=== PATIENT | male | born 1945 | race Caucasian/White ===

== ENCOUNTER 2018-07-30 10:45 | Emergency (ER) | payer MEDICARE, OTHER, MEDICAID ==
[2018-07-30] MEDS ORDERED: Proparacaine 0.5% Opth 15 ML BOT ONE (11:01)
[2018-07-30] MEDS ORDERED: Fluorescein Opthalmic Strip ONE (11:01)
== END 2018-07-30 11:26 | disposition home or self-care (01) ==
LOC: SCSER 10:45
DX: H00.014 Hordeolum externum left upper eyelid (principal); J06.9 Acute upper respiratory infection, unspecified; E11.9 Type 2 diabetes mellitus without complications; I50.9 Heart failure, unspecified; J44.9 Chronic obstructive pulmonary disease, unspecified; F32.9 Major depressive disorder, single episode, unspecified
CPT/HCPCS: 99283

== ENCOUNTER 2018-10-19 12:33 | Emergency (ER) | payer MEDICARE, OTHER, MEDICAID ==
--- NOTE | 2018-10-19 14:19 | RAD ---
TWO VIEWS CHEST: HISTORY: Cough. FINDINGS: PA and lateral views of the chest are obtained on 10/19/2018. Comparison is made to previous exam fro m 04/18/2014. Two views of the chest demonstrate sternotomy wires seen. Calcification of the aorta is seen. The l ungs are well aerated. No evidence of active intrathoracic disease is seen. No evidence of effusion s, pneumonia, or pneumothorax is seen. Prosthetic cardiac valve is in place. IMPRESSION: Unremarkable 2 views chest. POS: [facility]
== END 2018-10-19 14:13 | disposition home or self-care (01) ==
LOC: SCSER 12:33
DX: J06.9 Acute upper respiratory infection, unspecified (principal); I50.9 Heart failure, unspecified; J44.9 Chronic obstructive pulmonary disease, unspecified; F32.9 Major depressive disorder, single episode, unspecified; E11.40 Type 2 diabetes mellitus with diabetic neuropathy, unspecified
CPT/HCPCS: 71046; 87804

== ENCOUNTER 2020-07-26 09:56 | Outpatient (CLI) | payer MEDICARE, OTHER ==
--- NOTE | 2020-07-26 11:30 | MRI ---
MRI Lumbar Spine WO Con History: Lumbar spondylosis Comparison: None. Findings: Aortic contour is nonaneurysmal. No retroperitoneal periaortic adenopathy. Mild bilateral posterior paraspinal muscle atrophy. Laminectomy change at L3 and L4. Conus medullaris terminates near the superior L1 endplate. Levels are as follows: L1/L2: Mild posterior disc degenerative height loss and minimal disc desiccation. No neural foraminal or spinal canal narrowing. L2/L3: 2 mm retrolisthesis. Mild posterior degenerative disc space height loss. Small circumferential disc osteophyte complex. Minimal central and right paracentral annular fissure. Mild ligament flavum hypertrophy. Spinal canal measures 6 to 7 mm. Moderate hypertrophic facet arthrosis with facet joint effusions. Mild bilateral neural foraminal narrowing. L3/L4: Moderate posterior degenerative disc space height loss. 1-2 mm retrolisthesis. High-grade face t arthrosis. Moderate disc osteophyte complex causes moderate bilateral neural foraminal narrowing. The spinal canal measures approximately 13 mm. L4/L5: Mild posterior degenerative disc space height loss. Moderate circumferential disc osteophyte c omplex. Moderate ligamentum flavum hypertrophy. Severe facet arthropathy. Large disc osteophyte complex. Moderate to severe left and moderate right neural foraminal narrowing with abutment of the l eft exiting and bilateral traversing nerve roots. Spinal canal measures approximately 3-4 mm. L5/S1: Mild disc desiccation and height loss. Small circumferential disc osteophyte complex. Severe h ypertrophic facet arthrosis. Moderate disc osteophyte complex. Moderate bilateral neural foraminal narrowing. Impression: [id number] spondylosis as described with multilevel neural foraminal and spinal canal narrowing. High-grade spinal canal narrowing at L4/L5 measuring 3-4 mm with nerve root crowding.
== END 2020-07-26 09:57 | disposition home or self-care (01) ==
LOC: BICMRI 09:56
PROVIDERS: ATTEND Anesthesiology Pain Medicine
DX: M48.062 Spinal stenosis, lumbar region with neurogenic claudication (principal); M47.816 Spondylosis without myelopathy or radiculopathy, lumbar region
CPT/HCPCS: 72148

== ENCOUNTER 2020-09-16 06:41 | Inpatient (IN) | payer MEDICARE, MEDICAID, OTHER ==
[2020-09-13 09:33] VITALS: BMI 31.0
[2020-09-16] MEDS ORDERED: Sodium Chloride 0.9% 0 ML ONE (09:02)
[2020-09-16] MEDS ORDERED: Thrombin 5000 UNITS/5 ML VIAL ONE (09:02)
[2020-09-16] MEDS ORDERED: Fentanyl 100 MCG/2 ML VIAL ONE ×3 (09:34→14:02)
[2020-09-16] MEDS ORDERED: Levofloxacin 500 mg/D5W 100 ml Premix Bag ONE (09:59)
[2020-09-16] MEDS ORDERED: Clindamycin/D5W 900 mg/50 ml Premix Bag ONE (09:59)
[2020-09-16] MEDS ORDERED: Glycopyrrolate 0.2 MG/ML 5 ML SYRINGE ONE (10:40)
[2020-09-16] MEDS ORDERED: ePHEDrine 50 MG/ML VIAL ONE (10:40)
[2020-09-16] MEDS ORDERED: PROPOFOL 200 MG/20 ML VIAL ONE (10:40)
[2020-09-16] MEDS ORDERED: Rocuronium Bromide 10 MG/ML (10ML VIAL) ONE (10:40)
[2020-09-16] MEDS ORDERED: Dexamethasone 20 MG/5 ML VIAL ONE (10:40)
[2020-09-16] MEDS ORDERED: PHENYLEPHRINE-NS 100 MCG/ML 10 ML SYRINGE ONE (10:40)
[2020-09-16] MEDS ORDERED: Esmolol 100 MG/10 ML VIAL ONE (10:40)
[2020-09-16] MEDS ORDERED: Lidocaine 1% PF 5 ML VIAL ONE (10:40)
[2020-09-16] MEDS ORDERED: Ondansetron PF 4 MG/2 ML Vial ONE ×2 (10:40→12:12)
[2020-09-16] MEDS ORDERED: SUGAMMADEX SODIUM 200 MG/2 ML VIAL ONE (11:34)
[2020-09-16] MEDS ORDERED: Metoprolol Tartrate 5 MG/5 ML VIAL ONE (11:49)
[2020-09-16] MEDS ORDERED: HYDROcodone/Acetaminophen 5/325 mg Tablet ONE (13:09)
--- NOTE | 2020-09-16 14:25 | OP ---
DATE OF PROCEDURE: 09/16/2020 HVAC PROJECT ENGINEER: Afua Shi PA-C PROCEDURE PERFORMED: L4-L5 laminectomy. DESCRIPTION OF PROCEDURE: The patient was brought to the operating room and intubated. He was rolled in a prone position on gel-filled chest rolls. An incision was made exposing L4-L5 and the level was confirmed by x-ray. We performed complete L5 and inferior L4 laminectomies, completely decompression the neural elements at L4-L5. The wound was then extensively irrigated and MAC hemostasis was secured. Vancomycin powder was applied and the wound was closed in anatomic layers over drain. Job ID: [id number]
[2020-09-16] MEDS ORDERED: Ondansetron PF 4 MG/2 ML Vial IM PRN (15:35)
[2020-09-16] MEDS: traMADol HCl 50 MG TAB PO PRN (15:40)
[2020-09-16] MEDS ORDERED: diphenhydrAMINE 25 MG CAP PO PRN (15:45)
[2020-09-16] MEDS ORDERED: Promethazine HCl 12.5 MG SUPP PR PRN (15:45)
[2020-09-16] MEDS ORDERED: Milk Of Magnesia 30 ML UDCUP PO PRN (15:45)
[2020-09-16] MEDS ORDERED: Acetaminophen/Codeine 30-300mg Tablet PO PRN ×2 (15:45)
[2020-09-16] MEDS ORDERED: tiZANidine HCl 4 MG TAB PO PRN (15:45)
[2020-09-16] MEDS ORDERED: Promethazine HCl 25 MG/ML VIAL IM PRN (15:45)
[2020-09-16] MEDS ORDERED: Mag-Al 1200 mg/1200 mg/30 ML UDCUP PO PRN (15:45)
[2020-09-16] MEDS ORDERED: traMADol HCl 50 MG TAB PO PRN (15:45)
[2020-09-16] MEDS ORDERED: diphenhydrAMINE 50 MG/ML VIAL IVP PRN (15:45)
[2020-09-16] MEDS ORDERED: Morphine 4 MG/ML VIAL SLOW IVP PRN (15:45)
[2020-09-16] MEDS ORDERED: Promethazine 25 MG TAB PO PRN (15:45)
[2020-09-16] MEDS: Clindamycin/D5W 900 MG in Premix Bag 1 BAG IVPB SCH (18:13)
[2020-09-16] MEDS ORDERED: Albuterol Sulfate 2.5 mg/3 ml Neb NEB PRN (19:01)
[2020-09-16] MEDS ORDERED: Budesonide 0.5 MG/2 ML NEB NEB PRN (19:03)
[2020-09-16] MEDS ORDERED: Chlorhexidine Gluconate 15 ML UDCUP SSP PRN (19:13)
[2020-09-16] MEDS ORDERED: Furosemide 40 MG TAB PO PRN (19:15)
[2020-09-16] MEDS ORDERED: Potassium Chloride 20 MEQ TAB PO PRN (19:16)
[2020-09-16] MEDS: Sodium Chloride 0.9% 1,000 ML IV SCH (19:25)
[2020-09-16] MEDS: Zolpidem Tartrate 5 MG TAB PO SCH (20:52)
[2020-09-16] MEDS: Pregabalin 50 MG CAP PO SCH (20:52)
[2020-09-16] MEDS: Carvedilol 6.25 MG TAB PO SCH (20:53)
[2020-09-16] MEDS: ALPRAZolam 0.5 MG TAB PO SCH (20:54)
[2020-09-16] MEDS: Simvastatin 10 MG TAB PO SCH (20:54)
[2020-09-16] MEDS: Nitroglycerin 0.2mg/Hour PATCH TOP SCH (20:55)
[2020-09-16] MEDS ORDERED: Apixaban 5 MG TAB PO SCH (21:00)
[2020-09-17] MEDS: Clindamycin/D5W 900 MG in Premix Bag 1 BAG IVPB SCH (01:47)
[2020-09-17] MEDS: Sodium Chloride 0.9% 1,000 ML IV SCH ×2 (04:52→20:25)
[2020-09-17] MEDS ORDERED: HYDROCODONE BIT PO PRN (05:42)
[2020-09-17] MEDS ORDERED: [UNRECOGNIZED DRUG - OTHER] PO PRN (05:42)
[2020-09-17] MEDS: Tamsulosin HCl 0.4 MG CAP PO SCH ×2 (05:58→07:46)
--- NOTE | 2020-09-17 07:27 | PRG ---
DATE OF SERVICE: 09/17/2020 The patient is postoperative day #1, status post L4-L5 laminectomy. Following the surgery, he was transitioned to the Med/Surg floor, where his pain has been well controlled with p.o. medication, he is tolerating a regular diet, and he is ambulating easily in the room, in the hallways. He has had some issues, difficulty urinating overnight. He has been bladder scanned several times and this has been under 300. He was given a dose of Flomax. On exam this morning, he is sitting up comfortably. No acute distress. Free active range of motion of all extremities. No focal motor weakness. Incision clean, dry, and intact. ABRBY drain output overnight was 50 mL. We will go ahead and remove the BARBY drain and discontinue IV clindamycin. He feels that he may have the urge to urinate this morning, so we will have an attempt at this. Depending on his urinary retention, we may need to continue to monitor. If this improves, he could likely discharge later today. I will recheck on his progress later today. Job ID: [id number]
[2020-09-17] MEDS: Arformoterol 15 MCG/2 ML NEB NEB SCH ×2 (08:36→19:01)
[2020-09-17] MEDS ORDERED: Aspirin 81 mg Enteric Coated Tablet PO SCH (09:00)
[2020-09-17] MEDS: Cholecalciferol 1,000 UNITS (25 MCG) TAB PO SCH (09:35)
[2020-09-17] MEDS: ALPRAZolam 0.5 MG TAB PO SCH ×3 (09:36→20:22)
[2020-09-17] MEDS: Pregabalin 25 MG CAP PO SCH (09:36)
[2020-09-17] MEDS: Carvedilol 6.25 MG TAB PO SCH ×2 (09:39→20:24)
--- NOTE | 2020-09-17 17:21 | RAD ---
Portable frontal chest radiograph: 09/17/2020 COMPARISON: 10/19/2018 HISTORY: Congestive heart failure FINDINGS: The cardiac silhouette is prominent as before, and there are stable midline sternotomy wire s. There is no pneumothorax or pleural fluid and no focal consolidation or alveolar edema. There is atherosclerotic calcification of the aortic arch. IMPRESSION: No focal consolidation or alveolar edema.
[2020-09-17 17:23] LABS: #Lymphocytes 1.5 thou/uL (1.20-3.40); #Monocytes 1.1 thou/uL (0.11-0.59); #Neutrophils 7.7 thou/uL (1.40-6.50); %Basophils 0.3 % (0.0-1.0); %Eosinophils 0.1 % (0.0-10.0); %Lymphocytes 14.8 % (21.0-51.0); %Monocytes 10.8 % (0.0-10.0); %Neutrophils 73.9 % (42.0-75.0); Hemoglobin 13.3 g/dL (14.0-18.0); Mean Corpuscular HGB CONC 31.2 g/dL (32.0-36.0); Mean Corpuscular Hemoglobin 27.3 pg (27.0-31.0); Mean Corpuscular Volume 87.6 fL (78.0-98.0); Mean Platelet Volume 10.3 fL (7.4-10.4); Platelet Count 133 thou/uL (130-400); RBC Distribution Width 15.5 % (11.5-14.5); Red Blood Cell (RBC) Count 4.88 mill/uL (4.70-6.10); White Blood Cell (WBC) Count 10.4 thou/uL (4.8-10.8)
[2020-09-17 17:29] LABS: INR-International Normal Ratio 1.3; PTT 32.2 sec (22.9-36.1); Prothrombin Time 16.6 sec (12.0-14.7)
[2020-09-17 17:45] LABS: ALT (SGPT) 11 U/L (8-55); AST (SGOT) 16 U/L (5-34); Albumin 3.7 g/dL (3.4-4.8); Alkaline Phosphatase 79 U/L (40-110); Anion Gap 16 mmol/L (10-20); BUN (Urea Nitrogen) 24 mg/dL (8.4-25.7); Bilirubin, Total 1.5 mg/dL (0.2-1.2); Calc. Creatinine Clearance 39 mL/min (70-130); Calcium 8.6 mg/dL (7.8-10.44); Carbon Dioxide 25 mmol/L (23-31); Chloride 93 mmol/L (98-107); Globulin 3.9 g/dL (2.4-3.5); Glucose 113 mg/dL (83-110); Potassium 4.7 mmol/L (3.5-5.1); Protein, Total 7.6 g/dL (5.8-8.1); Sodium 129 mmol/L (136-145)
[2020-09-17] MEDS ORDERED: Furosemide 40 MG/4 ML VIAL SLOW IVP SCH (18:00)
[2020-09-17 19:28] LABS: Bacteria/HPF None Seen HPF (None Seen); Bilirubin Negative (Negative); Blood, Urine Trace (Negative); Clarity Turbid (Clear); Glucose, Urine (Dipstick) Normal (Negative); Ketone, Urine Negative (Negative); Leukocyte Negative Leu/uL (Negative); Nitrite Negative (Negative); Protein, Urine (Dipstick) 200 mg/dL (Neg-Trace); Specific Gravity, Urine 1.019 (1.002-1.036); Squamous Epithelial 0-3 HPF (0-3)
[2020-09-17] MEDS: Zolpidem Tartrate 5 MG TAB PO SCH (20:22)
[2020-09-17] MEDS: Pregabalin 50 MG CAP PO SCH (20:23)
[2020-09-17] MEDS: Simvastatin 10 MG TAB PO SCH (20:24)
[2020-09-17] MEDS: Nystatin 500,000 UNITS/5 ML UDCUP SSW SCH (20:25)
[2020-09-17] MEDS: Nitroglycerin 0.2mg/Hour PATCH TOP SCH (20:25)
[2020-09-17] MEDS: traMADol HCl 50 MG TAB PO PRN (22:47)
--- NOTE | 2020-09-18 00:04 | CON ---
DATE OF CONSULTATION: HISTORY OF PRESENT ILLNESS: The patient is one day status post lumbar laminectomy for chronic back pain. Today, he is having urinary retention, trouble making urine. Bladder scan does not show a lot of urine in his bladder. It is dark brown. It is pertinent that he has been off several of his home medicines lately including aspirin, furosemide, potassium, and Eliquis. PAST MEDICAL HISTORY: Pertinent for congestive heart failure, chronic obstructive pulmonary disease, diabetes mellitus type 2, hypertension, anticoagulation, prosthetic aortic valve, coronary artery disease, and obstructive sleep apnea. CURRENT MEDICATIONS: 1. Aspirin 81 mg a day. 2. Furosemide 40 mg a day p.r.n. 3. Albuterol 2.5 neb q.6 hours p.r.n. 4. Pregabalin 100 mg at bedtime, 25 mg a.m. 5. Eliquis 5 mg twice a day. 6. Pravastatin 40 mg a day. 7. Xanax 0.5 mg three times a day. 8. Budesonide 0.5 mg nebs q.12 hours. 9. Brovana 15 mcg neb t.i.d. 10. Coreg 6.25 mg twice a day. 11. Nexium 40 mg a day. 12. Hydrocodone syrup. 13. Nitroglycerin 0.2 mg daily at bedtime, 0.4 mg sublingual every 5 minutes p.r.n. 14. Potassium chloride 20 mEq a day. 15. Ramipril 2.5 mg twice a day. 16. Ambien 10 mg at bedtime. 17. Tizanidine 4 mg p.o. q.6 hours. 18. Tylenol with Codeine 1 or 2 every 6 hours p.r.n. ALLERGIES: TO CELEXA, TORADOL, AND PENICILLINS. PAST SURGICAL HISTORY: Coronary artery bypass graft with aortic valve replacement in 2005, cataract surgery bilaterally, ventral hernia repair, the aforementioned current hospitalizations for lumbar laminectomy. FAMILY HISTORY: Father and grandfather of coronary artery disease. Two siblings have diabetes mellitus type 1. SOCIAL HISTORY: . Full code status. , next of kin. He is a former smoker, quit in 1995. No alcohol. REVIEW OF SYSTEMS: GENERAL: Occasional dizziness related to exercise. No headaches. No fevers, sweats, or chills. EYES: No double vision, blurred vision. EARS, NOSE, AND THROAT: No ear pain or drainage. No nasal bleeding. He only has five teeth. CARDIAC: No orthopnea or paroxysmal nocturnal dyspnea. He does have when excited about every 3-6 months a pressure in his chest that is relieved by sublingual nitroglycerin. RESPIRATORY: He has COPD. He has dyspnea on exertion. He is on oxygen p.r.n., CPAP with oxygen at night. GASTROINTESTINAL: No nausea or vomiting. He does have intermittent diarrhea and constipation and has been told he has irritable bowel syndrome. GENITOURINARY: His urine has been brown for the past 2-4 days. He has had difficulty initiating urine. He has only had 300-400 mL by bladder scan. He had a straight cath earlier today. MUSCULOSKELETAL: He has had the low back pain into his legs, for which he had the surgery. He has swelling in his lower legs. HEME/LYMPH: No tender or swollen lymph nodes in axilla, inguinal, or cervical area. NEUROLOGICAL: No strokes, seizures, or focal weakness. PHYSICAL EXAMINATION: GENERAL: He is alert, pleasant, cooperative gentleman, in no distress truly. VITAL SIGNS: His O2 saturation is 93% on room air, 100% on 3 L by nasal cannula. Blood pressure is 103/68 to 97/62, temperature is 97 plus/minus, and pulse rate is 82-93. HEAD, EYES, EARS, NOSE, AND THROAT: Revealed pupils round. Extraocular movements are intact. Sclerae are white. Tympanic membranes are clear. Nose is clear. Oral mucous membranes are dry. He has only five lower teeth. NECK: No jugular venous distention, adenopathy, or thyromegaly. CHEST: Clear to auscultation and percussion. HEART: Had an irregular rhythm with no murmurs or gallops. ABDOMEN: Soft. Bowel sounds are normal. There is no hepatosplenomegaly. No mass. No bruits. EXTREMITIES: Reveal 3+ edema with no cyanosis or clubbing. NEUROLOGICAL: Moves all extremities. Cranial nerves 2 through 12 are intact. SKIN: Warm and dry without bruises or rash. PULSES: Carotid, radial, and femoral pulses intact. Pedal pulses difficult to assess due to edema. TESTS: None. ASSESSMENT: Difficult urination, congestive heart failure, chronic obstructive pulmonary disease, diabetes mellitus type 2, hypertension, chronic anticoagulation, obstructive sleep apnea on home O2, and postop laminectomy. PLAN: Chest x-ray, CBC, comprehensive metabolic profile, bleeding studies, urinalysis, urine C and S, evaluate with laboratory available. Job ID: [id number] MTDD
[2020-09-18] MEDS: Morphine 2 MG/ML VIAL SLOW IVP PRN ×2 (01:09→10:43)
[2020-09-18] MEDS: Tamsulosin HCl 0.4 MG CAP PO SCH ×2 (05:53→08:02)
[2020-09-18] MEDS: Arformoterol 15 MCG/2 ML NEB NEB SCH ×2 (07:25→18:55)
--- NOTE | 2020-09-18 07:31 | PDOC.HOSPP ---
- Subjective Encounter Date: 09/18/20 Encounter Time: 07:28 - Objective Vital Signs & Weight: Vital Signs (12 hours) Temp Pulse Resp BP BP Pulse Ox 09/18/20 07:25 117 H 20 95 09/18/20 02:00 97.6 F 98 18 92/54 L 97 09/17/20 23:25 97.6 F 104 H 16 94/60 95 09/17/20 20:24 116/74 09/17/20 20:23 116/74 09/17/20 20:22 95 09/17/20 20:00 116/74 09/17/20 19:40 97.6 F 101 H 16 102/55 L 95 Weight Weight 198 lb I&O: 09/17/20 09/18/20 09/19/20 06:59 06:59 06:59 Intake Total 50 3200 Output Total 70 1640 Balance -20 1560 Result Diagrams: 09/17/20 17:14 09/17/20 17:14 Radiology Reviewed by me: Yes (CXR- cardiomegaly, no active chf) Hospitalist ROS - Medication Medications: Active Medications Generic Name Dose Route Start Last Admin Trade Name Freq PRN Reason Stop Dose Admin Acetaminophen/Codeine Phosphate 2 tab 09/16/20 15:45 09/18/20 06:02 Acetaminophen/Codeine 30-300mg Tablet PO 2 tab Q3H PRN Administration PAIN (4-6) Alprazolam 0.5 mg 09/16/20 21:00 09/17/20 20:22 Alprazolam 0.5 Mg Tab PO 0.5 mg TID ZANE Administration Arformoterol Tartrate 15 mcg 09/17/20 06:30 09/18/20 07:25 Arformoterol 15 Mcg/2 Ml Neb NEB 15 mcg BID-RT ZANE Administration Carvedilol 6.25 mg 09/16/20 21:00 09/17/20 20:24 Carvedilol 6.25 Mg Tab PO 6.25 mg BID ZANE Administration Cholecalciferol 5,000 units 09/17/20 09:00 09/17/20 09:35 Cholecalciferol 1,000 Units (25 Mcg) Tab PO 5,000 units DAILY ZANE Administration Sodium Chloride 1,000 mls @ 75 mls/hr 09/16/20 15:45 09/17/20 20:25 Normal Saline 0.9% IV Not Given .[id number] ZANE Morphine Sulfate 2 mg 09/16/20 15:45 09/18/20 01:09 Morphine 2 Mg/Ml Vial SLOW IVP 2 mg Q1H PRN Administration Moderate Breakthrough Pain Nitroglycerin 0.2 mg 09/16/20 21:00 09/17/20 20:25 Nitroglycerin 0.2mg/Hour Patch TOP 0.2 mg HS ZANE Administration Nystatin 500,000 units 09/17/20 21:00 09/17/20 20:25 Nystatin 500,000 Units/5 Ml Udcup SSW 500,000 units QID ZANE Administration Pregabalin 100 mg 09/16/20 21:00 09/17/20 20:23 Pregabalin 50 Mg Cap PO 100 mg HS ZANE Administration Pregabalin 25 mg 09/17/20 09:00 09/17/20 09:36 Pregabalin 25 Mg Cap PO 25 mg QAM ZANE Administration Ramipril 2.5 mg 09/16/20 21:00 09/17/20 20:23 Ramipril 2.5 Mg Cap PO 2.5 mg BID ZANE Administration Simvastatin 10 mg 09/16/20 21:00 09/17/20 20:24 Simvastatin 10 Mg Tab PO 10 mg HS ZANE Administration Tamsulosin HCl 0.4 mg 09/17/20 06:00 09/18/20 05:53 Tamsulosin Hcl 0.4 Mg Cap PO 0.4 mg 0600 ZANE Administration Tamsulosin HCl 0.4 mg 09/17/20 09:00 09/17/20 07:46 Tamsulosin Hcl 0.4 Mg Cap PO Not Given DAILY ZANE Tramadol HCl 100 mg 09/16/20 15:45 09/17/20 22:47 Tramadol Hcl 50 Mg Tab PO 100 mg Q6H PRN Administration PAIN (4-6) Zolpidem Tartrate 10 mg 09/16/20 21:00 09/17/20 20:22 Zolpidem Tartrate 5 Mg Tab PO 10 mg HS ZANE Administration Hospitalist Exam Vitals: Vital Signs (12 hours) Temp Pulse Resp BP BP Pulse Ox 09/18/20 07:25 117 H 20 95 09/18/20 02:00 97.6 F 98 18 92/54 L 97 09/17/20 23:25 97.6 F 104 H 16 94/60 95 09/17/20 20:24 116/74 09/17/20 20:23 116/74 09/17/20 20:22 95 09/17/20 20:00 116/74 09/17/20 19:40 97.6 F 101 H 16 102/55 L 95 Weight Weight 198 lb General Appearance: awake alert Neck: no JVD Heart: no murmur, irregular Respiratory: CTAB Gastrointestinal: soft, normal bowel sounds Extremities: 2+ LE edema Hosp A/P (1) CHF (congestive heart failure) Code(s): I50.9 - HEART FAILURE, UNSPECIFIED Status: Chronic Qualifiers: Heart failure type: systolic Heart failure chronicity: unspecified Qualified Code(s): I50.20 - Unspecified systolic (congestive) heart failure (2) DM type 2 causing CKD stage 3 Code(s): E11.22 - TYPE 2 DIABETES MELLITUS W DIABETIC CHRONIC KIDNEY DISEASE; N18.30 - CHRONIC KIDNEY DISEASE, STAGE 3 UNSPECIFIED Status: Chronic Qualifiers: Diabetes mellitus manager intermediate insulin use: without manager intermediate use Chronic kidney disease stage 3 subtype: unspecified whether 3a or 3b Qualified Code(s): E11.22 - Type 2 diabetes mellitus with diabetic chronic kidney disease; N18.30 - Chronic kidney disease, stage 3 unspecified (3) HTN (hypertension) Code(s): I10 - ESSENTIAL (PRIMARY) HYPERTENSION Status: Chronic Qualifiers: Hypertension type: essential hypertension Qualified Code(s): I10 - Essential (primary) hypertension (4) CAD (coronary artery disease) Code(s): I25.10 - ATHSCL HEART DISEASE OF [place] CORONARY ARTERY W/O ANG PCTRS Status: Chronic Qualifiers: Coronary Disease-Associated Artery/Lesion type: [place] artery [place] vs. transplanted heart: [place] heart Associated angina: without angina Qualified Code(s): I25.10 - Atherosclerotic heart disease of [place] coronary artery without angina pectoris (5) Atrial fibrillation Code(s): I48.91 - UNSPECIFIED ATRIAL FIBRILLATION Status: Chronic Qualifiers: Atrial fibrillation type: paroxysmal Qualified Code(s): I48.0 - Paroxysmal atrial fibrillation - Plan still requiring intermitent urinary cath, no spintaaeneous urine flow creatinie increased froom baseline, suspect obstructive uropathy reinstitue po juan, Jarod urology consult pending
--- NOTE | 2020-09-18 08:10 | PRG ---
DATE OF SERVICE: 09/18/2020 SUBJECTIVE: The patient is now postoperative day #2, status post L4-L5 laminectomy. With regards to surgery he has minimal pain, he is tolerating a his diet, and he is ambulating easily in the hallways. He has been dealing with urinary retention since the surgery. He has been treated with Flomax and required I and O cath x2. UA was sent, which showed a few white blood cells, but no obvious infection. OBJECTIVE: GENERAL: He is awake, alert, in no acute distress. EXTREMITIES: He has free active range of motion of all extremities. No focal motor weakness. Incision is clean, dry, and intact. The patient continues to have issues with postoperative urinary retention. We will get an opinion from Urology. Job ID: [id number] MTDD
--- NOTE | 2020-09-18 08:12 | PRG ---
DATE OF SERVICE: 09/18/2020 Mr. Amador is doing quite well. He has had near complete resolution of his leg pain postoperatively. The main issue is urinary retention, which has been refractory to medical management thus far and still requiring in and out catheterization. We will get a Urology opinion in this regard. Job ID: [id number]
[2020-09-18] MEDS: Pregabalin 25 MG CAP PO SCH (08:54)
[2020-09-18] MEDS: Cholecalciferol 1,000 UNITS (25 MCG) TAB PO SCH (08:54)
[2020-09-18] MEDS: Nystatin 500,000 UNITS/5 ML UDCUP SSW SCH ×4 (08:54→22:22)
[2020-09-18] MEDS: ALPRAZolam 0.5 MG TAB PO SCH ×3 (08:55→22:22)
[2020-09-18] MEDS: Potassium Chloride 20 MEQ TAB PO SCH (08:55)
[2020-09-18] MEDS: Carvedilol 6.25 MG TAB PO SCH ×2 (08:55→22:22)
[2020-09-18] MEDS: Furosemide 40 MG TAB PO SCH (08:55)
[2020-09-18] MEDS: Sodium Chloride 0.9% 1,000 ML IV SCH ×2 (09:42→22:23)
--- NOTE | 2020-09-18 19:42 | CT ---
Head CT without contrast: 09/18/2020 COMPARISON: None HISTORY: Confusion, altered mental status, left-sided weakness TECHNIQUE: Axial CT imaging at 2.5 mm intervals from vertex through skull base without contrast. Jesus nal and sagittal reformatted imaging obtained. FINDINGS: The patient is status post bilateral ethmoidectomy. There is mucosal thickening involving t he maxillary sinuses, right greater than left. No acute osseous abnormality is evident. No intracranial hemorrhage, midline shift, mass effect, or v entricular enlargement. IMPRESSION: No intracranial hemorrhage or displaced calvarial fracture.
--- NOTE | 2020-09-18 20:38 | PRG ---
DATE OF SERVICE: 09/18/2020 Mr. Amador is a 75-year-old male who recently underwent L4-L5 laminectomy. He was doing well postoperatively other than some urinary retention. We discussed this with Urology and we had planned to send him home with Marie catheter with outpatient followup in our office later today. The patient was planning to discharge to home tonight. Unfortunately, this evening he developed some acute left-sided weakness and some increased drowsiness. The patient is in town for stat noncontrast CT head, which is negative for any acute intracranial abnormality. No acute changes seen on the CT. However, patient is high risk for acute CVA due to his underlying chronic atrial fibrillation. He has been off his Eliquis for the last 12 days. We will plan to restart his Eliquis 5 mg b.i.d. and we will reassess his progress in the morning. q.2 neuro checks overnight. Job ID: [id number] MTDD
[2020-09-18] MEDS ORDERED: Apixaban 5 MG TAB PO SCH (21:00)
[2020-09-18] MEDS: Pregabalin 50 MG CAP PO SCH ×2 (22:21→22:52)
[2020-09-18] MEDS: Nitroglycerin 0.2mg/Hour PATCH TOP SCH (22:22)
[2020-09-18] MEDS: Simvastatin 10 MG TAB PO SCH ×2 (22:22→22:54)
[2020-09-18] MEDS: Zolpidem Tartrate 5 MG TAB PO SCH (22:23)
[2020-09-19] MEDS: Arformoterol 15 MCG/2 ML NEB NEB SCH ×2 (07:26→18:36)
[2020-09-19] MEDS ORDERED: Aspirin 325 mg Enteric Coated Tablet PO SCH (07:45)
--- NOTE | 2020-09-19 08:37 | PDOC.HOSPP ---
- Subjective Encounter Date: 09/19/20 Encounter Time: 08:36 Subjective: discharge held last nite due to change in neuro status - Objective Vital Signs & Weight: Vital Signs (12 hours) Temp Pulse Resp BP BP Pulse Ox 09/19/20 08:00 97.7 F 111 H 20 155/83 H 95 09/19/20 07:27 97 09/19/20 07:26 113 H 20 97 09/19/20 04:34 97.9 F 100 18 127/68 97 09/19/20 00:00 98.2 F 110 H 18 124/77 98 09/18/20 22:54 130/79 09/18/20 22:22 130/79 Weight Weight 198 lb I&O: 09/18/20 09/19/20 09/20/20 06:59 06:59 06:59 Intake Total 3200 840 Output Total 1640 2270 Balance 1560 -1430 Result Diagrams: 09/17/20 17:14 09/17/20 17:14 Radiology Reviewed by me: Yes (MRI-large parietal stroke) Hospitalist ROS - Medication Medications: Active Medications Generic Name Dose Route Start Last Admin Trade Name Freq PRN Reason Stop Dose Admin Acetaminophen/Codeine Phosphate 2 tab 09/16/20 15:45 09/18/20 06:02 Acetaminophen/Codeine 30-300mg Tablet PO 2 tab Q3H PRN Administration PAIN (4-6) Alprazolam 0.5 mg 09/16/20 21:00 09/18/20 22:22 Alprazolam 0.5 Mg Tab PO Not Given TID ZANE Apixaban 5 mg 09/18/20 21:00 09/18/20 22:22 Apixaban 5 Mg Tab PO 5 mg BID ZANE Administration Arformoterol Tartrate 15 mcg 09/17/20 06:30 09/19/20 07:26 Arformoterol 15 Mcg/2 Ml Neb NEB 15 mcg BID-RT ZANE Administration Aspirin 325 mg 09/19/20 07:45 09/19/20 08:04 Aspirin 325 Mg Enteric Coated Tablet PO 09/19/20 10:00 325 mg NOW ZANE Administration Carvedilol 6.25 mg 09/16/20 21:00 09/18/20 22:22 Carvedilol 6.25 Mg Tab PO 6.25 mg BID ZANE Administration Cholecalciferol 5,000 units 09/17/20 09:00 09/18/20 08:54 Cholecalciferol 1,000 Units (25 Mcg) Tab PO 5,000 units DAILY ZANE Administration Furosemide 40 mg 09/18/20 07:30 09/18/20 08:55 Furosemide 40 Mg Tab PO 40 mg DAILY-AC ZANE Administration Sodium Chloride 1,000 mls @ 75 mls/hr 09/16/20 15:45 09/18/20 22:23 Normal Saline 0.9% IV Not Given .[id number] ZANE Morphine Sulfate 2 mg 09/16/20 15:45 09/18/20 10:43 Morphine 2 Mg/Ml Vial SLOW IVP 2 mg Q1H PRN Administration Moderate Breakthrough Pain Nitroglycerin 0.2 mg 09/16/20 21:00 09/18/20 22:22 Nitroglycerin 0.2mg/Hour Patch TOP 0.2 mg HS ZANE Administration Nystatin 500,000 units 09/17/20 21:00 09/18/20 22:22 Nystatin 500,000 Units/5 Ml Udcup SSW 500,000 units QID ZANE Administration Potassium Chloride 20 meq 09/18/20 08:00 09/18/20 08:55 Potassium Chloride 20 Meq Tab PO 20 meq QAM-WM ZANE Administration Pregabalin 100 mg 09/16/20 21:00 09/18/20 22:52 Pregabalin 50 Mg Cap PO Not Given HS ZANE Pregabalin 25 mg 09/17/20 09:00 09/18/20 08:54 Pregabalin 25 Mg Cap PO 25 mg QAM ZANE Administration Ramipril 2.5 mg 09/16/20 21:00 09/18/20 22:54 Ramipril 2.5 Mg Cap PO Not Given BID ZANE Simvastatin 10 mg 09/16/20 21:00 09/18/20 22:54 Simvastatin 10 Mg Tab PO Not Given HS ZANE Tamsulosin HCl 0.4 mg 09/17/20 06:00 09/18/20 05:53 Tamsulosin Hcl 0.4 Mg Cap PO 0.4 mg 0600 ZANE Administration Tamsulosin HCl 0.4 mg 09/17/20 09:00 09/18/20 08:02 Tamsulosin Hcl 0.4 Mg Cap PO Not Given DAILY ZANE Tramadol HCl 100 mg 09/16/20 15:45 09/17/20 22:47 Tramadol Hcl 50 Mg Tab PO 100 mg Q6H PRN Administration PAIN (4-6) Zolpidem Tartrate 10 mg 09/16/20 21:00 09/18/20 22:23 Zolpidem Tartrate 5 Mg Tab PO Not Given [facility] Hospitalist Exam Vitals: Vital Signs (12 hours) Temp Pulse Resp BP BP Pulse Ox 09/19/20 08:00 97.7 F 111 H 20 155/83 H 95 09/19/20 07:27 97 09/19/20 07:26 113 H 20 97 09/19/20 04:34 97.9 F 100 18 127/68 97 09/19/20 00:00 98.2 F 110 H 18 124/77 98 09/18/20 22:54 130/79 09/18/20 22:22 130/79 Weight Weight 198 lb Neck: no JVD Heart: irregular Respiratory: CTAB Gastrointestinal: soft, normal bowel sounds Extremities: no edema Neurological - other findings: eyes deviated to right. 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 Hosp A/P (1) CHF (congestive heart failure) Code(s): I50.9 - HEART FAILURE, UNSPECIFIED Status: Chronic Qualifiers: Heart failure type: systolic Heart failure chronicity: unspecified Qualified Code(s): I50.20 - Unspecified systolic (congestive) heart failure (2) DM type 2 causing CKD stage 3 Code(s): E11.22 - TYPE 2 DIABETES MELLITUS W DIABETIC CHRONIC KIDNEY DISEASE; N18.30 - CHRONIC KIDNEY DISEASE, STAGE 3 UNSPECIFIED Status: Chronic Qualifiers: Diabetes mellitus halfway insulin use: without director long term care use Chronic kidney disease stage 3 subtype: unspecified whether 3a or 3b Qualified Code(s): E11.22 - Type 2 diabetes mellitus with diabetic chronic kidney disease; N18.30 - Chronic kidney disease, stage 3 unspecified (3) HTN (hypertension) Code(s): I10 - ESSENTIAL (PRIMARY) HYPERTENSION Status: Chronic Qualifiers: Hypertension type: essential hypertension Qualified Code(s): I10 - Essential (primary) hypertension (4) CAD (coronary artery disease) Code(s): I25.10 - ATHSCL HEART DISEASE OF [place] CORONARY ARTERY W/O ANG PCTRS Status: Chronic Qualifiers: Coronary Disease-Associated Artery/Lesion type: [place] artery [place] vs. transplanted heart: [place] heart Associated angina: without angina Qualified Code(s): I25.10 - Atherosclerotic heart disease of [place] coronary artery without angina pectoris (5) Atrial fibrillation Code(s): I48.91 - UNSPECIFIED ATRIAL FIBRILLATION Status: Chronic Qualifiers: Atrial fibrillation type: paroxysmal Qualified Code(s): I48.0 - Paroxysmal atrial fibrillation (6) CVA (cerebral vascular accident) Code(s): I63.9 - CEREBRAL INFARCTION, UNSPECIFIED Status: Acute Qualifiers: CVA mechanism: embolism Precerebral and cerebral artery: middle cerebral artery Laterality of affected vessel: right Qualified Code(s): I63.411 - Cerebral infarction due to embolism of right middle cerebral artery - Plan proable embolic CVA ASA loveameena stroke protocol
[2020-09-19] MEDS ORDERED: Aspirin 300 MG Suppository PR SCH (09:00)
[2020-09-19 09:15] LABS: #Eosinphils 0.1 thou/uL (0.0-0.7); #Lymphocytes 0.8 thou/uL (1.20-3.40); #Monocytes 0.7 thou/uL (0.11-0.59); %Basophils 0.1 % (0.0-1.0); %Lymphocytes 10.6 % (21.0-51.0); %Monocytes 9.3 % (0.0-10.0); %Neutrophils 78.9 % (42.0-75.0); Hemoglobin 12.9 g/dL (14.0-18.0); Mean Corpuscular Hemoglobin 28.7 pg (27.0-31.0); Mean Corpuscular Volume 87.2 fL (78.0-98.0); Mean Platelet Volume 10.2 fL (7.4-10.4); Platelet Count 122 thou/uL (130-400); RBC Distribution Width 15.5 % (11.5-14.5); Red Blood Cell (RBC) Count 4.49 mill/uL (4.70-6.10); White Blood Cell (WBC) Count 7.6 thou/uL (4.8-10.8)
[2020-09-19 09:24] LABS: INR-International Normal Ratio 1.3; PTT 37.1 sec (22.9-36.1); Prothrombin Time 16.1 sec (12.0-14.7)
[2020-09-19 09:38] LABS: Anion Gap 18 mmol/L (10-20); BUN (Urea Nitrogen) 22 mg/dL (8.4-25.7); Calc. Creatinine Clearance 57 mL/min (70-130); Calcium 8.8 mg/dL (7.8-10.44); Carbon Dioxide 20 mmol/L (23-31); Chloride 95 mmol/L (98-107); Glucose 130 mg/dL (83-110); Potassium 4.4 mmol/L (3.5-5.1); Sodium 129 mmol/L (136-145)
--- NOTE | 2020-09-19 09:50 | MRI ---
MRI BRAIN WITHOUT CONTRAST: HISTORY: Acute CVA, left-sided weakness, acute CVA, left-sided weakness. FINDINGS: Correlation is made with the CT scan from previous evening. There is a large area of restricted diffusion consistent with acute infarction in the right MCA clifford tory. No hemorrhage, midline shift, or abnormal extraaxial fluid collections are seen. There are mu ltiple foci of T2 prolongation in the periventricular white matter consistent with chronic small-vess el ischemic disease. The ventricular size is appropriate and the basilar cisterns patent. There is mucosal disease in the paranasal sinuses. IMPRESSION: Acute nonhemorrhagic right middle cerebral artery infarction. POS: OFF
[2020-09-19] MEDS: Tamsulosin HCl 0.4 MG CAP PO SCH ×2 (09:52→09:55)
[2020-09-19] MEDS: Furosemide 40 MG TAB PO SCH (09:53)
[2020-09-19] MEDS: Potassium Chloride 20 MEQ TAB PO SCH (09:54)
[2020-09-19] MEDS: ALPRAZolam 0.5 MG TAB PO SCH ×3 (09:54→20:50)
[2020-09-19] MEDS: Carvedilol 6.25 MG TAB PO SCH ×2 (09:54→20:49)
[2020-09-19] MEDS: Nystatin 500,000 UNITS/5 ML UDCUP SSW SCH ×4 (09:55→20:50)
[2020-09-19] MEDS: Pregabalin 25 MG CAP PO SCH (09:55)
[2020-09-19] MEDS: Cholecalciferol 1,000 UNITS (25 MCG) TAB PO SCH (09:55)
[2020-09-19] MEDS: Enoxaparin Sodium 100 MG/ML SYRINGE SC SCH ×2 (10:15→20:50)
[2020-09-19] MEDS: Sodium Chloride 0.9% 1,000 ML IV SCH ×2 (11:04→23:56)
--- NOTE | 2020-09-19 11:22 | PRG ---
DATE OF SERVICE: 09/19/2020 SUBJECTIVE: Yesterday evening, the patient developed some left-sided acute weakness and some increased drowsiness. A noncontrast head CT was negative for acute changes; however, MRI done this morning of the brain, however, reveals a right MCA infarct. He has been transferred to the stroke unit by the Hospitalist Service and started on aspirin and Lovenox. His Eliquis was discontinued. OBJECTIVE: GENERAL: On exam, the patient is awake and alert. NEUROLOGIC: He has a notable left-sided facial droop and some weakness 3/5 diffusely on the left side, the right side has 5/5 strength throughout. He is oriented to person and place. Unfortunately, the patient has suffered an acute right middle cerebral artery infarct. Stroke Team has been consulted. He has been made n.p.o. with speech eval pending. He will require further PT, OT, and likely rehab placement. The patient's family was at the bedside and updated them on his current course. We will continue to follow his progress closely. Neurology has also been consulted to assist with the team. Job ID: [id number] [facility]
--- NOTE | 2020-09-19 11:56 | PDOC.BPN ---
- Brief Progress Note Encounter Date: 09/19/20 Encounter Time: 11:55 discussed with neurology. ECHO ordered. will add cardiology consult. cont asa, lovenox, stroke protocol
--- NOTE | 2020-09-19 13:46 | CON ---
NEUROLOGY CONSULTATION DATE OF CONSULTATION: 09/19/2020 REASON FOR CONSULTATION: Stroke. HISTORY OF PRESENT ILLNESS: Mr. Amador is a 75-year-old male with medical history significant for congestive heart failure, chronic obstructive pulmonary disease, diabetes, hypertension, prosthetic aortic valve, on chronic anticoagulation, coronary artery disease, and obstructive sleep apnea, who is status post laminectomy, postoperative day #1 from chronic back pain, consulted for acute mental status change and left-sided weakness. The patient was actually discharged home because the surgery went well, but then they decided there was acute change in mental status associated with focal weakness. The patient denies nausea, vomiting, headache, chest pain, abdominal pain, recent illness or recent exposure to COVID. REVIEW OF SYSTEMS: All systems reviewed and were negative except the pertinent positives and negatives mentioned in the HPI. PAST MEDICAL HISTORY: Congestive heart failure, chronic obstructive pulmonary disease, diabetes mellitus type 2, hypertension, prosthetic aortic valve, on anticoagulation, coronary artery disease, obstructive sleep apnea. CURRENT MEDICATIONS: 1. Aspirin 81 mg daily. 2. Furosemide 40 mg a day. 3. Albuterol 2.5 mg q.6 hours p.r.n. 4. Pregabalin 100 mg at bedtime, 25 mg at a.m. 5. Eliquis 5 mg twice a day. 6. Pravastatin 40 mg a day. 7. Xanax 0.5 mg 3 times a day. 8. Budesonide 0.5 nebs q.12 hours. 9. Brovana 15 mcg neb t.i.d. 10. Coreg 6.25 mg twice a day. 11. Nexium 40 mg a day. 12. Hydrocodone syrup. 13. Nitroglycerin 0.2 mg at bedtime, 0.4 mg every 5 hours p.r.n. 14. Potassium chloride 20 mEq a day. 15. Ramipril 2.5 mg twice a day. 16. Ambien 10 mg at bedtime. 17. Tizanidine 4 mg p.o. q.6 hours. 18. Tylenol with Codeine 1 to 2 every 6 hours p.r.n. ALLERGIES: CITALOPRAM, KETOROLAC TROMETHAMINE, PENICILLIN. PAST SURGICAL HISTORY: Coronary artery bypass graft with aortic valve replacement in 2005, cataract surgery bilaterally, ventral hernia repair. FAMILY HISTORY: Father and grandfather of coronary artery disease. Two siblings have diabetes mellitus type 1. SOCIAL HISTORY: . Full code status. He is a former smoker, quit in 1995. Denies alcohol. Vital Signs & Weight: Vital Signs (12 hours) Temp Pulse Resp BP BP Pulse Ox 09/19/20 08:00 97.7 F 111 H 20 155/83 H 95 09/19/20 07:27 97 09/19/20 07:26 113 H 20 97 09/19/20 04:34 97.9 F 100 18 127/68 97 09/19/20 00:00 98.2 F 110 H 18 124/77 98 09/18/20 22:54 130/79 09/18/20 22:22 130/79 Weight Weight 198 lb I&O: 09/18/20 09/19/20 09/20/20 06:59 06:59 06:59 Intake Total 3200 840 Output Total 1640 2270 Balance 1560 -1430 Active Medications Generic Name Dose Route Start Last Admin Trade Name Freq PRN Reason Stop Dose Admin Acetaminophen/Codeine Phosphate 2 tab 09/16/20 15:45 09/18/20 06:02 Acetaminophen/Codeine 30-300mg Tablet PO 2 tab Q3H PRN Administration PAIN (4-6) Alprazolam 0.5 mg 09/16/20 21:00 09/18/20 22:22 Alprazolam 0.5 Mg Tab PO Not Given TID ZANE Apixaban 5 mg 09/18/20 21:00 09/18/20 22:22 Apixaban 5 Mg Tab PO 5 mg BID ZANE Administration Arformoterol Tartrate 15 mcg 09/17/20 06:30 09/19/20 07:26 Arformoterol 15 Mcg/2 Ml Neb NEB 15 mcg BID-RT ZANE Administration Aspirin 325 mg 09/19/20 07:45 09/19/20 08:04 Aspirin 325 Mg Enteric Coated Tablet PO 09/19/20 10:00 325 mg NOW ZANE Administration Carvedilol 6.25 mg 09/16/20 21:00 09/18/20 22:22 Carvedilol 6.25 Mg Tab PO 6.25 mg BID ZANE Administration Cholecalciferol 5,000 units 09/17/20 09:00 09/18/20 08:54 Cholecalciferol 1,000 Units (25 Mcg) Tab PO 5,000 units DAILY ZANE Administration Furosemide 40 mg 09/18/20 07:30 09/18/20 08:55 Furosemide 40 Mg Tab PO 40 mg DAILY-AC ZANE Administration Sodium Chloride 1,000 mls @ 75 mls/hr 09/16/20 15:45 09/18/20 22:23 Normal Saline 0.9% IV Not Given .[id number] ZANE Morphine Sulfate 2 mg 09/16/20 15:45 09/18/20 10:43 Morphine 2 Mg/Ml Vial SLOW IVP 2 mg Q1H PRN Administration Moderate Breakthrough Pain Nitroglycerin 0.2 mg 09/16/20 21:00 09/18/20 22:22 Nitroglycerin 0.2mg/Hour Patch TOP 0.2 mg HS ZANE Administration Nystatin 500,000 units 09/17/20 21:00 09/18/20 22:22 Nystatin 500,000 Units/5 Ml Udcup SSW 500,000 units QID ZANE Administration Potassium Chloride 20 meq 09/18/20 08:00 09/18/20 08:55 Potassium Chloride 20 Meq Tab PO 20 meq QAM-WM ZANE Administration Pregabalin 100 mg 09/16/20 21:00 09/18/20 22:52 Pregabalin 50 Mg Cap PO Not Given HS ZANE Pregabalin 25 mg 09/17/20 09:00 09/18/20 08:54 Pregabalin 25 Mg Cap PO 25 mg QAM ZANE Administration Ramipril 2.5 mg 09/16/20 21:00 09/18/20 22:54 Ramipril 2.5 Mg Cap PO Not Given BID ZANE Simvastatin 10 mg 09/16/20 21:00 09/18/20 22:54 Simvastatin 10 Mg Tab PO Not Given HS ZANE Tamsulosin HCl 0.4 mg 09/17/20 06:00 09/18/20 05:53 Tamsulosin Hcl 0.4 Mg Cap PO 0.4 mg 0600 ZANE Administration Tamsulosin HCl 0.4 mg 09/17/20 09:00 09/18/20 08:02 Tamsulosin Hcl 0.4 Mg Cap PO Not Given DAILY ZANE Tramadol HCl 100 mg 09/16/20 15:45 09/17/20 22:47 Tramadol Hcl 50 Mg Tab PO 100 mg Q6H PRN Administration PAIN (4-6) Zolpidem Tartrate 10 mg 09/16/20 21:00 09/18/20 22:23 Zolpidem Tartrate 5 Mg Tab PO Not Given HS ZANE Vitals: Vital Signs (12 hours) Temp Pulse Resp BP BP Pulse Ox 09/19/20 08:00 97.7 F 111 H 20 155/83 H 95 09/19/20 07:27 97 09/19/20 07:26 113 H 20 97 09/19/20 04:34 97.9 F 100 18 127/68 97 09/19/20 00:00 98.2 F 110 H 18 124/77 98 09/18/20 22:54 130/79 09/18/20 22:22 130/79 Weight Weight 198 lb PHYSICAL EXAMINATION: VITAL SIGNS: Blood pressure 103/60, respiratory rate 18, temperature 98. CV: Irregular rhythm with no murmurs or gallops. CHEST: Clear. ABDOMEN: Soft. NECK: Supple. NEUROLOGIC: Mental status; the patient is alert and oriented to person and place. Follows commands intermittently. Cranial nerves 2 through 12 intact except 7 right facial droop, 9 and 10 dysarthria. The patient does have receptive aphasia. Motor; muscle tone is decreased on the left. Bulk is normal. Left hemiparesis. Cerebellar, unable to perform on the left secondary to weakness. Sensory, withdraws to nailbed pressure bilaterally, right greater than left. Gait deferred due to the patient's safety reason. DIAGNOSTIC STUDIES: Data reviewed. I reviewed the CT scan of the brain, which did not reveal any acute intracranial pathology. MRI of the brain showed large right middle cerebral artery stroke. ASSESSMENT AND PLAN: (1) CHF (congestive heart failure) Code(s): I50.9 - HEART FAILURE, UNSPECIFIED Status: Chronic Qualifiers: Heart failure type: systolic Heart failure chronicity: unspecified Qualified Code(s): I50.20 - Unspecified systolic (congestive) heart failure (2) DM type 2 causing CKD stage 3 Code(s): E11.22 - TYPE 2 DIABETES MELLITUS W DIABETIC CHRONIC KIDNEY DISEASE; N18.30 - CHRONIC KIDNEY DISEASE, STAGE 3 UNSPECIFIED Status: Chronic Qualifiers: Diabetes mellitus [employer] insulin use: without [employer] use Chronic kidney disease stage 3 subtype: unspecified whether 3a or 3b Qualified Code(s): E11.22 - Type 2 diabetes mellitus with diabetic chronic kidney disease; N18.30 - Chronic kidney disease, stage 3 unspecified (3) HTN (hypertension) Code(s): I10 - ESSENTIAL (PRIMARY) HYPERTENSION Status: Chronic Qualifiers: Hypertension type: essential hypertension Qualified Code(s): I10 - Essential (primary) hypertension (4) CAD (coronary artery disease) Code(s): I25.10 - ATHSCL HEART DISEASE OF [place] CORONARY ARTERY W/O ANG PCTRS Status: Chronic Qualifiers: Coronary Disease-Associated Artery/Lesion type: [place] artery [place] vs. transplanted heart: [place] heart Associated angina: without angina Qualified Code(s): I25.10 - Atherosclerotic heart disease of [place] coronary artery without angina pectoris (5) Atrial fibrillation Code(s): I48.91 - UNSPECIFIED ATRIAL FIBRILLATION Status: Chronic Qualifiers: Atrial fibrillation type: paroxysmal Qualified Code(s): I48.0 - Paroxysmal atrial fibrillation (6) CVA (cerebral vascular accident) Code(s): I63.9 - CEREBRAL INFARCTION, UNSPECIFIED Status: Acute Qualifiers: CVA mechanism: embolism Precerebral and cerebral artery: middle cerebral artery Laterality of affected vessel: right Qualified Code(s): I63.411 - Cerebral infarction due to embolism of right middle cerebral art Mr. Lon Amador is a 75-year-old male with history significant for atrial fibrillation, congestive heart failure, chronic obstructive pulmonary disease, status post lumbar surgery, consulted for acute mental status change with left-sided weakness. MRI of the brain positive for acute infarction in the right middle cerebral artery territory. Consider 2D echo to evaluate for left ventricular ejection fraction and carotid Dopplers to rule out hemodynamically-significant stenosis. Continue aspirin for secondary stroke prevention. Hold Eliquis because of risk of hemorrhagic conversion for at least 5 to 7 days post-stroke. Consider cardiology input. Family prefers Dr. Leiva. Telemetry to monitor for arrhythmias. Permissive control of blood pressure at this time. Strict control of blood glucose. Continue home medications. Continue medical management per primary team. PT/OT/speech. DVT prophylaxis. We will continue to follow. Thank you for the consult. Job ID: [id number] [facility]
[2020-09-19] MEDS ORDERED: Acetaminophen 500 MG TAB PO PRN (15:11)
--- NOTE | 2020-09-19 15:26 | PRG ---
DATE OF SERVICE: 09/19/2020 SUBJECTIVE: Mr. Amador was gearing up for discharge yesterday when he was noted to have sudden onset left hemiparesis and initial CT scan was negative and he was started on Eliquis. He was not a candidate for tPA or other aggressive intervention given the recent surgery. His symptoms are not resolved and he is currently somewhat somnolent with a left hemiparesis. An MRI scan does reveal a left MCA inferior division infarct. IMPRESSION AND PLAN: The patient has had a new stroke, likely related to his atrial fibrillation. An echocardiogram is scheduled and he has been started on Lovenox and aspirin, and the Eliquis has been held. He will need a stroke workup including swallow eval, PT and OT evaluations, and ultimately rehab. He is at risk of being resumed on blood thinners given the recent lumbar surgery, but I think this is the best balance of risk and benefit at this stage. I discussed the situation at length with the patient's son and . All their questions were answered and they expressed understanding. Job ID: [id number]
[2020-09-19] MEDS: Zolpidem Tartrate 5 MG TAB PO SCH (20:49)
[2020-09-19] MEDS: Pregabalin 50 MG CAP PO SCH (20:49)
[2020-09-19] MEDS: Simvastatin 10 MG TAB PO SCH (21:04)
[2020-09-19] MEDS: Nitroglycerin 0.2mg/Hour PATCH TOP SCH (21:05)
[2020-09-20 05:47] LABS: Cardiac Risk 3.6 (Less than 4.5)
[2020-09-20] MEDS: Tamsulosin HCl 0.4 MG CAP PO SCH ×2 (06:24→10:37)
[2020-09-20] MEDS: Arformoterol 15 MCG/2 ML NEB NEB SCH ×2 (07:37→19:05)
[2020-09-20] MEDS ORDERED: Acetaminophen/Codeine 30-300mg Tablet PO PRN (08:17)
[2020-09-20] MEDS ORDERED: Cepastat Lozenges 1 LOZ PO PRN (08:20)
[2020-09-20] MEDS ORDERED: Bisacodyl 5 MG TAB PO PRN (08:20)
[2020-09-20] MEDS ORDERED: GUAIFENESIN SF SOLN 200 MG/10 ML UDCUP PO PRN (08:20)
[2020-09-20] MEDS ORDERED: Loperamide HCl 2 MG CAP PO PRN (08:20)
[2020-09-20] MEDS ORDERED: Sodium Chloride 0.65% Nasal 44 ML BOT EA NARE PRN (08:20)
[2020-09-20] MEDS ORDERED: Senokot S 8.6-50 MG TAB PO PRN (08:20)
[2020-09-20] MEDS ORDERED: hydrALAZINE 20 MG/ML VIAL SLOW IVP PRN (08:20)
[2020-09-20] MEDS ORDERED: Calcium Carbonate 500 MG ChewTAB PO PRN (08:20)
[2020-09-20] MEDS ORDERED: Benzonatate 100 MG CAP PO PRN (08:20)
[2020-09-20] MEDS ORDERED: Loratadine 10 MG TAB PO PRN (08:20)
[2020-09-20] MEDS ORDERED: Ondansetron ODT 4 MG TAB PO PRN (08:20)
--- NOTE | 2020-09-20 09:26 | PRG ---
DATE OF SERVICE: The patient has been stable overnight on the stroke unit. I visited the patient at the bedside this morning. He is currently getting an EEG. I visited with the as well son. Neurologically no changes overnight and he has not had further decline. Some drowsiness will wax and wane at times. I did not examine the patient currently as he is currently undergoing EEG. Neurologically, the patient appears to be stable, although he does have some drowsiness that appears to wax and wane. He is currently being followed by the Stroke Team including Neurology, Cardiology, PT, OT, Speech, and Medicine. He will need rehab at some point and CM, post acute screen consults have been placed. Job ID: [id number] [facility]
[2020-09-20] MEDS: Metoprolol Tartrate 5 MG/5 ML VIAL IVP PRN (10:28)
[2020-09-20] MEDS: Furosemide 40 MG TAB PO SCH (10:36)
[2020-09-20] MEDS: Aspirin 325 MG TAB PO SCH (10:36)
[2020-09-20] MEDS: Pregabalin 25 MG CAP PO SCH (10:36)
[2020-09-20] MEDS: Carvedilol 6.25 MG TAB PO SCH ×2 (10:36→20:21)
[2020-09-20] MEDS: Cholecalciferol 1,000 UNITS (25 MCG) TAB PO SCH (10:37)
[2020-09-20] MEDS: Enoxaparin Sodium 100 MG/ML SYRINGE SC SCH ×2 (10:37→20:24)
[2020-09-20] MEDS: Potassium Chloride 20 MEQ TAB PO SCH (10:37)
[2020-09-20] MEDS: Nystatin 500,000 UNITS/5 ML UDCUP SSW SCH ×4 (10:38→20:23)
--- NOTE | 2020-09-20 10:53 | PDOC.EEG ---
Neurology EEG Report - Report Report: This EEG was performed using 24 channel [email or web address] video EEG machine with 24 disc electrodes. This was an extended 2 hours 6 minutes of inpatient video EEG recording. Digital analysis of the EEG was done for spike and seizure detection which revealed no abnormalities. Background: The posterior background rhythm is not observed. Hyperventilation: Not performed. Photic Stimulation: No significant response. Sleep: Drowsiness and sleep are observed. EEG Diagnosis: Generalized irregular theta activity seen during the recording. Absence of posterior background rhythm. Clinical Interpretation: This EEG is consistent with moderate generalized nonspecific cerebral dysfunct ion.
--- NOTE | 2020-09-20 11:52 | PDOC.HOSPP ---
- Subjective Encounter Date: 09/20/20 Encounter Time: 07:45 Subjective: Patient seen and examined bedside today, patient son present bedside today, I had lengthy discussion with them about plan of care, - Objective Vital Signs & Weight: Vital Signs (12 hours) Temp Pulse Resp BP BP Pulse Ox 09/20/20 10:36 137/92 H 09/20/20 10:35 137/92 H 09/20/20 08:00 97.6 F 125 H 13 140/80 98 09/20/20 07:37 112 H 22 H 96 09/20/20 04:00 98.4 F 124 H 16 139/78 99 09/20/20 00:00 97.2 F L 120 H 16 113/69 98 Weight Admit Weight 198 lb Weight 198 lb I&O: 09/19/20 09/20/20 09/21/20 06:59 06:59 06:59 Intake Total 840 1450 Output Total 2270 3550 Balance -1430 -2100 Result Diagrams: 09/19/20 09:05 09/19/20 09:05 Radiology Reviewed by me: Yes EKG Reviewed by me: Yes Hospitalist ROS - Review of Systems Constitutional: reports: weakness. denies: fever, chills, sweats, malaise, other Respiratory: denies: cough, dry, shortness of breath, hemoptysis, SOB with excertion, pleuritic pain, sputum, wheezing, other Cardiovascular: denies: chest pain, palpitations, orthopnea, paroxysmal noc. dyspnea, edema, light headedness, other Gastrointestinal: denies: nausea, vomiting, abdominal pain, diarrhea, constipation, melena, hematochezia, other Genitourinary: denies: dysuria, frequency, incontinence, hematuria, retention, other Musculoskeletal: denies: neck pain, shoulder pain, arm pain, back pain, hand pain, leg pain, foot pain, other - Medication Medications: Active Medications Generic Name Dose Route Start Last Admin Trade Name Freq PRN Reason Stop Dose Admin Acetaminophen 500 mg 09/19/20 15:11 09/19/20 15:27 Acetaminophen 500 Mg Tab PO 500 mg Q4H PRN Administration Headache/Fever or Pain Arformoterol Tartrate 15 mcg 09/17/20 06:30 09/20/20 07:37 Arformoterol 15 Mcg/2 Ml Neb NEB 15 mcg BID-RT ZANE Administration Aspirin 325 mg 09/20/20 09:00 09/20/20 10:36 Aspirin 325 Mg Tab PO 325 mg DAILY ZANE Administration Carvedilol 6.25 mg 09/16/20 21:00 09/20/20 10:36 Carvedilol 6.25 Mg Tab PO 6.25 mg BID ZNAE Administration Cholecalciferol 5,000 units 09/17/20 09:00 09/20/20 10:37 Cholecalciferol 1,000 Units (25 Mcg) Tab PO 5,000 units DAILY ZANE Administration Enoxaparin Sodium 90 mg 09/19/20 09:00 09/20/20 10:37 Enoxaparin Sodium 100 Mg/Ml Syringe SC 90 mg 09,2100 ZANE Administration Protocol Furosemide 40 mg 09/18/20 07:30 09/20/20 10:36 Furosemide 40 Mg Tab PO 40 mg DAILY-AC ZANE Administration Metoprolol Tartrate 5 mg 09/20/20 08:16 09/20/20 10:28 Metoprolol Tartrate 5 Mg/5 Ml Vial IVP 5 mg Q6H PRN Administration To Control Heart Rate Morphine Sulfate 2 mg 09/16/20 15:45 09/18/20 10:43 Morphine 2 Mg/Ml Vial SLOW IVP 2 mg Q1H PRN Administration Moderate Breakthrough Pain Nystatin 500,000 units 09/17/20 21:00 09/20/20 10:38 Nystatin 500,000 Units/5 Ml Udcup SSW 500,000 units QID ZANE Administration Pantoprazole Sodium 40 mg 09/20/20 09:00 09/20/20 10:36 Pantoprazole 40 Mg Tab PO 40 mg DAILY ZANE Administration Potassium Chloride 20 meq 09/18/20 08:00 09/20/20 10:37 Potassium Chloride 20 Meq Tab PO 20 meq QAM-WM ZANE Administration Pregabalin 100 mg 09/16/20 21:00 09/19/20 20:49 Pregabalin 50 Mg Cap PO 100 mg HS ZANE Administration Pregabalin 25 mg 09/17/20 09:00 09/20/20 10:36 Pregabalin 25 Mg Cap PO 25 mg QAM ZANE Administration Ramipril 2.5 mg 09/16/20 21:00 09/20/20 10:35 Ramipril 2.5 Mg Cap PO 2.5 mg BID ZANE Administration Tamsulosin HCl 0.4 mg 09/17/20 09:00 09/20/20 10:37 Tamsulosin Hcl 0.4 Mg Cap PO 0.4 mg DAILY ZANE Administration Hospitalist Exam Vitals: Vital Signs (12 hours) Temp Pulse Resp BP BP Pulse Ox 09/20/20 10:36 137/92 H 09/20/20 10:35 137/92 H 09/20/20 08:00 97.6 F 125 H 13 140/80 98 09/20/20 07:37 112 H 22 H 96 09/20/20 04:00 98.4 F 124 H 16 139/78 99 09/20/20 00:00 97.2 F L 120 H 16 113/69 98 Weight Admit Weight 198 lb Weight 198 lb General Appearance: NAD, awake alert Eye: PERRL, anicteric sclera ENT: normocephalic atraumatic, no oropharyngeal lesions Neck: supple, symmetric, no JVD, no thyromegaly Heart: no murmur, no gallops, no rubs, irregular Respiratory: no wheezes, no rales, no ronchi Gastrointestinal: soft, non-tender, non-distended, normal bowel sounds Extremities: no clubbing, no edema Skin: normal turgor, no lesions Neurological - other findings: Patient moves all 4 limbs with no weakness noted on the left side Musculoskeletal: normal tone, normal strength Psychiatric: normal affect, normal behavior Hosp A/P (1) S/P lumbar laminectomy Code(s): Z98.890 - OTHER SPECIFIED POSTPROCEDURAL STATES Status: Acute (2) CVA (cerebral vascular accident) Code(s): I63.9 - CEREBRAL INFARCTION, UNSPECIFIED Status: Acute Qualifiers: CVA mechanism: embolism Precerebral and cerebral artery: middle cerebral artery Laterality of affected vessel: right Qualified Code(s): I63.411 - Cerebral infarction due to embolism of right middle cerebral artery (3) Hyponatremia Code(s): E87.1 - HYPO-OSMOLALITY AND HYPONATREMIA Status: Acute (4) Acute renal failure superimposed on stage 3 chronic kidney disease Code(s): N17.9 - ACUTE KIDNEY FAILURE, UNSPECIFIED; N18.30 - CHRONIC KIDNEY DISEASE, STAGE 3 UNSPECIFIED Status: Acute Qualifiers: Chronic kidney disease stage 3 subtype: stage 3a (GFR 45-59) (5) Atrial fibrillation Code(s): I48.91 - UNSPECIFIED ATRIAL FIBRILLATION Status: Chronic Qualifiers: Atrial fibrillation type: paroxysmal Qualified Code(s): I48.0 - Paroxysmal atrial fibrillation (6) CAD (coronary artery disease) Code(s): I25.10 - ATHSCL HEART DISEASE OF [place] CORONARY ARTERY W/O ANG PCTRS Status: Chronic Qualifiers: Coronary Disease-Associated Artery/Lesion type: [place] artery [place] vs. transplanted heart: [place] heart Associated angina: without angina Qualified Code(s): I25.10 - Atherosclerotic heart disease of [place] coronary artery without angina pectoris (7) DM type 2 causing CKD stage 3 Code(s): E11.22 - TYPE 2 DIABETES MELLITUS W DIABETIC CHRONIC KIDNEY DISEASE; N18.30 - CHRONIC KIDNEY DISEASE, STAGE 3 UNSPECIFIED Status: Chronic Qualifiers: Diabetes mellitus mcfp insulin use: without [employer] use Chronic kidney disease stage 3 subtype: unspecified whether 3a or 3b Qualified Code(s): E11.22 - Type 2 diabetes mellitus with diabetic chronic kidney disease; N18.30 - Chronic kidney disease, stage 3 unspecified (8) HTN (hypertension) Code(s): I10 - ESSENTIAL (PRIMARY) HYPERTENSION Status: Chronic Qualifiers: Hypertension type: essential hypertension Qualified Code(s): I10 - Essential (primary) hypertension (9) Dyslipidemia Code(s): E78.5 - HYPERLIPIDEMIA, UNSPECIFIED Status: Chronic - Plan old records reviewed/req, plan discussed w/ family, PT/OT, social media specialist, speech therapy, DVT proph w/lovenox Continue stroke team evaluation EEG showing diffuse cerebral slowing MRI brain confirmed a right MCA CVA, echocardiography pending Cardiology evaluated this patient, We will add metoprolol 5 mg every 6 hourly as needed basis for A. fib with RVR, Medication reviewed and continue provide symptomatic and supportive care, Continue aspirin, continue Lovenox therapeutic dose Add Lipitor 40 mg nightly Medication reviewed and continue provide symptomatic and supportive care Plan of care discussed with the family member Patient will need eventually rehab placement
[2020-09-20] MEDS: Digoxin 0.25 MG TAB PO SCH ×2 (12:25→18:07)
--- NOTE | 2020-09-20 12:36 | PRG ---
DATE OF SERVICE: 09/20/2020 SUBJECTIVE: Mr. Amador's status is unchanged. No significant changes noted overnight. OBJECTIVE: VITAL SIGNS: Blood pressure 137/92, pulse 112, respirations 20. LUNGS: Clear to auscultation. HEART: Irregularly irregular. ABDOMEN: Soft, nontender, nondistended. EXTREMITIES: No edema. PERTINENT LABORATORY DATA: Creatinine 1.39, down from 2.0. IMPRESSION: 1. Atrial fibrillation. 2. Cerebrovascular accident. 3. Recent lumbar surgery. RECOMMENDATIONS: The patient is currently on carvedilol 6.25 one p.o. b.i.d. We will supplement with digoxin for better rate control. Can increase carvedilol if needed. 1 mg/kg Lovenox has been started. Echo is pending. Job ID: [id number]
--- NOTE | 2020-09-20 13:26 | CON ---
DATE OF CONSULTATION: 09/20/2020 REASON FOR CONSULTATION: Recent CVA. HISTORY OF PRESENT ILLNESS: Mr. Amador is a 75-year-old gentleman, who I have seen and evaluated in the past. He has since transferred his care to Dr. Nino Braga due to location. He has had a history of atrial fibrillation. He recently underwent a lumbar surgery. His Eliquis was discontinued. Shortly after his lumbar laminectomy, he developed significant unilateral weakness. PAST MEDICAL HISTORY: COPD, diabetes mellitus, atrial fibrillation, sleep apnea. HOME MEDICATIONS: Include, 1. Flomax. 2. Ultram. 3. Lasix. 4. Vitamin D3. 5. Alprazolam. 6. Brovana. 7. Coreg. 8. Nexium. 9. Minitran. 10. Nitroglycerin. 11. Potassium. 12. Altace. 13. Ambien. 14. Tizanidine. ALLERGIES: CITALOPRAM, KETOROLAC, PENICILLIN. REVIEW OF SYSTEMS: Unobtainable. PHYSICAL EXAMINATION: GENERAL: Patient is a pleasant gentleman who is in no acute distress. The patient appears their stated age. VITAL SIGNS: Blood pressure 137/92, pulse 112, respirations 20. NEUROLOGIC: Left-sided weakness and receptive aphasia. HEENT: Sclerae without icterus. Mouth has moist mucous membranes with normal pallor. NECK: No JVD. Carotid upstroke brisk. No bruits bilaterally. LUNGS: Clear to auscultation with unlabored respirations. BACK: No scoliosis or kyphosis. CARDIAC: Irregularly irregular. ABDOMEN: Soft, nontender, nondistended. No peritoneal signs present. No hepatosplenomegaly. No abnormal striae. EXTREMITIES: 2+ femoral and 2+ dorsalis pedis pulses. No cyanosis, clubbing, or edema. SKIN: No gross abnormalities. PERTINENT LABORATORY DATA: Hemoglobin 13.3. Creatinine 1.39. IMPRESSION: 1. Recent cerebrovascular accident. 2. Atrial fibrillation. 3. Bioprosthetic aortic valve. 4. Coronary artery disease, status post bypass surgery. RECOMMENDATIONS: Mr. Amador unfortunately recently had a CVA after being off anticoagulation therapy for lumbar surgery. Based on spinal surgery, it is recommended the patient stay off anticoagulation for at least a week due to increased risk of bleeding. Dr. Levine is currently following. From a CV standpoint, we would recommend continued rate control. Anticoagulation therapy will be left at the discretion of Dr. Levine. Once he is taking p.o., would then supplement with p.o. medications. Echo with Doppler has been ordered. Job ID: [id number]
[2020-09-20 14:49] LABS: Creatinine, Urine 47.19 mg/dL (63-166)
--- NOTE | 2020-09-20 15:13 | PDOC.NEUPN ---
- Subjective Encounter Date: 09/20/20 Subjective: Mr. Amador is somnolent today but no acute events overnight reported by the nursing staff. Family at bedside. - Objective Vital Signs & Weight: Vital Signs (12 hours) Temp Pulse Pulse Pulse Resp BP BP 09/20/20 12:25 111 H 09/20/20 12:05 113 H 127 H 128/81 09/20/20 12:00 97.7 F 108 H 15 09/20/20 10:36 137/92 H 09/20/20 10:35 137/92 H 09/20/20 08:00 97.6 F 125 H 13 09/20/20 07:37 112 H 22 H 09/20/20 04:00 98.4 F 124 H 16 BP BP Pulse Ox 09/20/20 12:25 09/20/20 12:05 123/67 09/20/20 12:00 107/73 97 09/20/20 10:36 09/20/20 10:35 09/20/20 08:00 140/80 98 09/20/20 07:37 96 09/20/20 04:00 139/78 99 Weight Admit Weight 198 lb Weight 198 lb I&O: 09/19/20 09/20/20 09/21/20 06:59 06:59 06:59 Intake Total 840 1450 Output Total 2270 3550 Balance -1430 -2100 Result Diagrams: 09/19/20 09:05 09/19/20 09:05 Radiology Reviewed by me: Yes EKG Reviewed by me: Yes ROS - Review of Systems ROS unobtainable: due to mental status - Medication Medications: Active Medications Generic Name Dose Route Start Last Admin Trade Name Freq PRN Reason Stop Dose Admin Acetaminophen 500 mg 09/19/20 15:11 09/19/20 15:27 Acetaminophen 500 Mg Tab PO 500 mg Q4H PRN Administration Headache/Fever or Pain Arformoterol Tartrate 15 mcg 09/17/20 06:30 09/20/20 07:37 Arformoterol 15 Mcg/2 Ml Neb NEB 15 mcg BID-RT ZANE Administration Aspirin 325 mg 09/20/20 09:00 09/20/20 10:36 Aspirin 325 Mg Tab PO 325 mg DAILY ZANE Administration Carvedilol 6.25 mg 09/16/20 21:00 09/20/20 10:36 Carvedilol 6.25 Mg Tab PO 6.25 mg BID ZANE Administration Cholecalciferol 5,000 units 09/17/20 09:00 09/20/20 10:37 Cholecalciferol 1,000 Units (25 Mcg) Tab PO 5,000 units DAILY ZANE Administration Digoxin 0.25 mg 09/20/20 12:15 09/20/20 12:25 Digoxin 0.25 Mg Tab PO 09/21/20 00:16 0.25 mg Q6H ZANE Administration Enoxaparin Sodium 90 mg 09/19/20 09:00 09/20/20 10:37 Enoxaparin Sodium 100 Mg/Ml Syringe SC 90 mg 0900,2100 ZANE Administration Protocol Furosemide 40 mg 09/18/20 07:30 09/20/20 10:36 Furosemide 40 Mg Tab PO 40 mg DAILY-AC ZANE Administration Metoprolol Tartrate 5 mg 09/20/20 08:16 09/20/20 10:28 Metoprolol Tartrate 5 Mg/5 Ml Vial IVP 5 mg Q6H PRN Administration To Control Heart Rate Morphine Sulfate 2 mg 09/16/20 15:45 09/18/20 10:43 Morphine 2 Mg/Ml Vial SLOW IVP 2 mg Q1H PRN Administration Moderate Breakthrough Pain Nystatin 500,000 units 09/17/20 21:00 09/20/20 12:33 Nystatin 500,000 Units/5 Ml Udcup SSW 500,000 units QID ZANE Administration Pantoprazole Sodium 40 mg 09/20/20 09:00 09/20/20 10:36 Pantoprazole 40 Mg Tab PO 40 mg DAILY ZANE Administration Potassium Chloride 20 meq 09/18/20 08:00 09/20/20 10:37 Potassium Chloride 20 Meq Tab PO 20 meq QAM-WM ZANE Administration Pregabalin 100 mg 09/16/20 21:00 09/19/20 20:49 Pregabalin 50 Mg Cap PO 100 mg HS ZANE Administration Pregabalin 25 mg 09/17/20 09:00 09/20/20 10:36 Pregabalin 25 Mg Cap PO 25 mg QAM ZANE Administration Ramipril 2.5 mg 09/16/20 21:00 09/20/20 10:35 Ramipril 2.5 Mg Cap PO 2.5 mg BID ZANE Administration Tamsulosin HCl 0.4 mg 09/17/20 09:00 09/20/20 10:37 Tamsulosin Hcl 0.4 Mg Cap PO 0.4 mg DAILY ZANE Administration - Exam General Appearance: NAD Eye: PERRL ENT: normocephalic atraumatic Neck: supple Respiratory: CTAB Cardiovascular: RRR Gastrointestinal: soft Extremities: no cyanosis Skin: normal turgor Neurological: no new deficit, facial droop, hemiplegia Musculoskeletal: normal tone, no muscle wasting PSYCH: not oriented, somnolent, lethargic Results - Labs Result Diagrams: 09/19/20 09:05 09/19/20 09:05 Lab results: WBC 7.6 thou/uL (4.8-10.8) 09/19/20 09:05 Hgb 12.9 g/dL (14.0-18.0) L 09/19/20 09:05 Hct 39.1 % (42.0-52.0) L 09/19/20 09:05 MCV 87.2 fL (78.0-98.0) 09/19/20 09:05 Plt Count 122 thou/uL (130-400) L 09/19/20 09:05 Neutrophils % 78.9 % (42.0-75.0) H 09/19/20 09:05 Sodium 129 mmol/L (136-145) L 09/19/20 09:05 Potassium 4.4 mmol/L (3.5-5.1) 09/19/20 09:05 Chloride 95 mmol/L (98-107) L 09/19/20 09:05 Carbon Dioxide 20 mmol/L (23-31) L 09/19/20 09:05 BUN 22 mg/dL (8.4-25.7) 09/19/20 09:05 Creatinine 1.39 mg/dL (0.7-1.3) H 09/19/20 09:05 Glucose 130 mg/dL (83-110) H 09/19/20 09:05 Calcium 8.8 mg/dL (7.8-10.44) 09/19/20 09:05 Total Bilirubin 1.5 mg/dL (0.2-1.2) H 09/17/20 17:14 AST 16 U/L (5-34) 09/17/20 17:14 ALT 11 U/L (8-55) 09/17/20 17:14 Alkaline Phosphatase 79 U/L (40-110) 09/17/20 17:14 Serum Total Protein 7.6 g/dL (5.8-8.1) 09/17/20 17:14 Albumin 3.7 g/dL (3.4-4.8) 09/17/20 17:14 Urine Ketones Negative mg/dL (Negative) 09/17/20 18:56 Urine Blood Trace (Negative) A 09/17/20 18:56 Urine Nitrite Negative (Negative) 09/17/20 18:56 Ur Leukocyte Esterase Negative Leandro/uL (Negative) 09/17/20 18:56 Urine RBC 7-10 HPF (0-3) A 09/17/20 18:56 Urine WBC 7-10 HPF (0-3) A 09/17/20 18:56 Ur Squamous Epith Cells 0-3 HPF (0-3) 09/17/20 18:56 Urine Bacteria None Seen HPF (None Seen) 09/17/20 18:56 - Radiology Interpretation MRI - head Additional Comment: Of the brain was consistent with acute infarction in the right middle cerebral artery region PN A/P (1) CVA (cerebral vascular accident) Code(s): I63.9 - CEREBRAL INFARCTION, UNSPECIFIED Status: Acute Qualifiers: CVA mechanism: embolism Precerebral and cerebral artery: middle cerebral artery Laterality of affected vessel: right Qualified Code(s): I63.411 - Cerebral infarction due to embolism of right middle cerebral artery (2) Acute renal failure superimposed on stage 3 chronic kidney disease Code(s): N17.9 - ACUTE KIDNEY FAILURE, UNSPECIFIED; N18.30 - CHRONIC KIDNEY DISEASE, STAGE 3 UNSPECIFIED Status: Acute Qualifiers: Chronic kidney disease stage 3 subtype: stage 3a (GFR 45-59) (3) S/P lumbar laminectomy Code(s): Z98.890 - OTHER SPECIFIED POSTPROCEDURAL STATES Status: Acute (4) Atrial fibrillation Code(s): I48.91 - UNSPECIFIED ATRIAL FIBRILLATION Status: Chronic Qualifiers: Atrial fibrillation type: paroxysmal Qualified Code(s): I48.0 - Paroxysmal atrial fibrillation (5) CAD (coronary artery disease) Code(s): I25.10 - ATHSCL HEART DISEASE OF [place] CORONARY ARTERY W/O ANG PCTRS Status: Chronic Qualifiers: Coronary Disease-Associated Artery/Lesion type: [place] artery [place] vs. transplanted heart: [place] heart Associated angina: without angina Qualified Code(s): I25.10 - Atherosclerotic heart disease of [place] coronary artery without angina pectoris (6) CHF (congestive heart failure) Code(s): I50.9 - HEART FAILURE, UNSPECIFIED Status: Chronic Qualifiers: Heart failure type: systolic Heart failure chronicity: unspecified Qualified Code(s): I50.20 - Unspecified systolic (congestive) heart failure (7) DM type 2 causing CKD stage 3 Code(s): E11.22 - TYPE 2 DIABETES MELLITUS W DIABETIC CHRONIC KIDNEY DISEASE; N18.30 - CHRONIC KIDNEY DISEASE, STAGE 3 UNSPECIFIED Status: Chronic Qualifiers: Diabetes mellitus termite treater insulin use: without [facility] use Chronic kidney disease stage 3 subtype: unspecified whether 3a or 3b Qualified Code(s): E11.22 - Type 2 diabetes mellitus with diabetic chronic kidney disease; N18.30 - Chronic kidney disease, stage 3 unspecified - Plan Daily Plan: plan discussed w/ family ( admits), PT/OT, speech therapy, DVT proph w/SCDs Is a 75-year-old male with medical history significant for atrial fibrillation on Eliquis with status post lumbar laminectomy consulted for acute mental status change and focal weakness. MRI of the brain was consistent with acute infarction in the right middle cerebral artery territory. EEG reviewed which was negative for seizure activity. 2D echo to evaluate for left ventricular ejection fraction is pending at this time. Carotid Dopplers pending to rule out hemodynamically significant stenosis. Continue telemetrypatient has atrial fibrillation and cardiology is on board. Neurochecks every 4 hours. Permissive control of blood pressure at this time. Strict control of blood glucose. Continue aspirin and high intensity statin for secondary stroke prevention. N.p.o. till cleared by speech. PT/OT/speech. Continue home medications. Continue medical management per primary team, cardiology and neurosurgery. DVT prophylaxis. Case management consult regarding discharge planning. Plan discussed in detail with the nursing staff and also with the at bedside.
[2020-09-20] MEDS: Nitroglycerin 0.4 MG TAB (25 Tab Bottle) SL PRN ×2 (18:30→18:52)
[2020-09-20 19:29] LABS: #Eosinphils 0.1 thou/uL (0.0-0.7); #Lymphocytes 1.1 thou/uL (1.20-3.40); #Monocytes 0.8 thou/uL (0.11-0.59); #Neutrophils 5.4 thou/uL (1.40-6.50); %Basophils 0.5 % (0.0-1.0); %Eosinophils 0.8 % (0.0-10.0); %Lymphocytes 14.5 % (21.0-51.0); %Neutrophils 73.2 % (42.0-75.0); Mean Corpuscular HGB CONC 31.7 g/dL (32.0-36.0); Mean Corpuscular Hemoglobin 27.3 pg (27.0-31.0); Mean Corpuscular Volume 86.2 fL (78.0-98.0); Mean Platelet Volume 9.8 fL (7.4-10.4); Platelet Count 153 thou/uL (130-400); RBC Distribution Width 15.8 % (11.5-14.5); Red Blood Cell (RBC) Count 4.77 mill/uL (4.70-6.10); White Blood Cell (WBC) Count 7.4 thou/uL (4.8-10.8)
--- NOTE | 2020-09-20 19:29 | RAD ---
Exam: Chest one view HISTORY:Chest pain Comparison: 09/17/2020 FINDINGS: Cardiac silhouette: Enlarged cardiac silhouette. Stable sternotomy wires. Aorta: Atherosclerosis Pulmonary vessels: Normal Costophrenic angles: Clear LUNGS: There are interstitial and alveolar opacities, predominantly in the lung bases. Pneumothorax: None Osseous abnormalities: None IMPRESSION: 1. Atherosclerosis 2. Bibasilar interstitial and alveolar opacities. Correlate for multi lobar bibasilar pneumonia. Comp onent of pulmonary edema cannot be excluded.
[2020-09-20 19:52] LABS: ALT (SGPT) 12 U/L (8-55); AST (SGOT) 17 U/L (5-34); Albumin 3.3 g/dL (3.4-4.8); Alkaline Phosphatase 83 U/L (40-110); Anion Gap 13 mmol/L (10-20); BUN (Urea Nitrogen) 16 mg/dL (8.4-25.7); Bilirubin, Total 1.5 mg/dL (0.2-1.2); Calc. Creatinine Clearance 67 mL/min (70-130); Calcium 9.1 mg/dL (7.8-10.44); Carbon Dioxide 30 mmol/L (23-31); Chloride 99 mmol/L (98-107); Globulin 3.8 g/dL (2.4-3.5); Glucose 139 mg/dL (83-110); Lipase 43 U/L (8-78); Magnesium 1.5 mg/dL (1.6-2.6); Potassium 3.9 mmol/L (3.5-5.1); Protein, Total 7.1 g/dL (5.8-8.1); Sodium 138 mmol/L (136-145)
[2020-09-20] MEDS: Pregabalin 50 MG CAP PO SCH (20:23)
[2020-09-20] MEDS: Atorvastatin Calcium 40 MG TAB PO SCH (20:24)
[2020-09-20] MEDS: Zolpidem Tartrate 5 MG TAB PO PRN (20:33)
[2020-09-21] MEDS: Digoxin 0.25 MG TAB PO SCH (00:40)
[2020-09-21] MEDS: Metoprolol Tartrate 5 MG/5 ML VIAL IVP PRN (03:45)
[2020-09-21 04:52] LABS: #Eosinphils 0.1 thou/uL (0.0-0.7); #Lymphocytes 1.2 thou/uL (1.20-3.40); #Monocytes 0.8 thou/uL (0.11-0.59); #Neutrophils 5.6 thou/uL (1.40-6.50); %Basophils 0.4 % (0.0-1.0); %Eosinophils 1.5 % (0.0-10.0); %Lymphocytes 15.9 % (21.0-51.0); %Monocytes 10.5 % (0.0-10.0); %Neutrophils 71.8 % (42.0-75.0); Hemoglobin 13.1 g/dL (14.0-18.0); Mean Corpuscular Hemoglobin 26.8 pg (27.0-31.0); Mean Corpuscular Volume 86.4 fL (78.0-98.0); Platelet Count 175 thou/uL (130-400); RBC Distribution Width 15.9 % (11.5-14.5); Red Blood Cell (RBC) Count 4.89 mill/uL (4.70-6.10); White Blood Cell (WBC) Count 7.8 thou/uL (4.8-10.8)
[2020-09-21 05:15] LABS: ALT (SGPT) 10 U/L (8-55); AST (SGOT) 18 U/L (5-34); Albumin 3.2 g/dL (3.4-4.8); Alkaline Phosphatase 82 U/L (40-110); Anion Gap 16 mmol/L (10-20); BUN (Urea Nitrogen) 16 mg/dL (8.4-25.7); Bilirubin, Total 1.5 mg/dL (0.2-1.2); Calc. Creatinine Clearance 72 mL/min (70-130); Calcium 9.1 mg/dL (7.8-10.44); Carbon Dioxide 27 mmol/L (23-31); Chloride 98 mmol/L (98-107); Globulin 3.9 g/dL (2.4-3.5); Glucose 129 mg/dL (83-110); Potassium 3.8 mmol/L (3.5-5.1); Protein, Total 7.1 g/dL (5.8-8.1); Sodium 137 mmol/L (136-145)
[2020-09-21] MEDS: Arformoterol 15 MCG/2 ML NEB NEB SCH ×2 (07:34→19:04)
[2020-09-21] MEDS: Cholecalciferol 1,000 UNITS (25 MCG) TAB PO SCH (10:46)
[2020-09-21] MEDS: Tamsulosin HCl 0.4 MG CAP PO SCH (10:49)
[2020-09-21] MEDS: Nystatin 500,000 UNITS/5 ML UDCUP SSW SCH ×4 (10:49→22:10)
[2020-09-21] MEDS: Carvedilol 6.25 MG TAB PO SCH ×2 (10:50→16:42)
[2020-09-21] MEDS: Aspirin 325 MG TAB PO SCH (10:50)
[2020-09-21] MEDS: Pregabalin 25 MG CAP PO SCH (10:50)
[2020-09-21] MEDS: Enoxaparin Sodium 100 MG/ML SYRINGE SC SCH ×2 (10:51→22:09)
[2020-09-21] MEDS: Potassium Chloride 20 MEQ TAB PO SCH (10:51)
--- NOTE | 2020-09-21 10:53 | PDOC.HOSPP ---
- Subjective Encounter Date: 09/21/20 Encounter Time: 07:30 Subjective: Patient seen and examined bedside today, his son is present bedside, he has concerns about his poor p.o. intake, - Objective Vital Signs & Weight: Vital Signs (12 hours) Temp Pulse Resp BP BP BP Pulse Ox 09/21/20 10:50 163/98 H 09/21/20 10:47 163/98 H 09/21/20 08:20 100 09/21/20 07:36 98.1 F 106 H 22 H 135/69 100 09/21/20 07:34 107 H 18 95 09/21/20 04:00 98.1 F 108 H 20 96 09/21/20 03:45 139/91 H 09/21/20 00:40 105 H 09/20/20 23:57 99.1 F 97 18 153/79 H 97 Weight Admit Weight 198 lb Weight 198 lb I&O: 09/20/20 09/21/20 09/22/20 06:59 06:59 06:59 Intake Total 1450 390 Output Total 3550 2450 Balance -2099 -2059 Result Diagrams: 09/21/20 04:23 09/21/20 04:23 Additional Labs: Accuchecks 09/21/20 09:57 POC Glucose 128 H Radiology Reviewed by me: Yes (Cx-ray is consistent with basilar infiltration) EKG Reviewed by me: Yes Hospitalist ROS - Review of Systems Constitutional: reports: weakness, malaise. denies: fever, chills, sweats, other ENT: denies: ear pain, ear discharge, nose pain, nose discharge, nose congestion, mouth pain, mouth swelling, throat pain, throat swelling, other Respiratory: denies: cough, dry, shortness of breath, hemoptysis, SOB with excertion, pleuritic pain, sputum, wheezing, other Cardiovascular: denies: chest pain, palpitations, orthopnea, paroxysmal noc. dyspnea, edema, light headedness, other Gastrointestinal: denies: nausea, vomiting, abdominal pain, diarrhea, constipation, melena, hematochezia, other Genitourinary: denies: dysuria, frequency, incontinence, hematuria, retention, other Musculoskeletal: denies: neck pain, shoulder pain, arm pain, back pain, hand pain, leg pain, foot pain, other - Medication Medications: Active Medications Generic Name Dose Route Start Last Admin Trade Name Freq PRN Reason Stop Dose Admin Acetaminophen 500 mg 09/19/20 15:11 09/19/20 15:27 Acetaminophen 500 Mg Tab PO 500 mg Q4H PRN Administration Headache/Fever or Pain Arformoterol Tartrate 15 mcg 09/17/20 06:30 09/21/20 07:34 Arformoterol 15 Mcg/2 Ml Neb NEB 15 mcg BID-RT ZANE Administration Aspirin 325 mg 09/20/20 09:00 09/21/20 10:50 Aspirin 325 Mg Tab PO 325 mg DAILY ZANE Administration Atorvastatin Calcium 40 mg 09/20/20 21:00 09/20/20 20:24 Atorvastatin Calcium 40 Mg Tab PO 40 mg HS ZANE Administration Carvedilol 6.25 mg 09/16/20 21:00 09/21/20 10:50 Carvedilol 6.25 Mg Tab PO 6.25 mg BID ZANE Administration Cholecalciferol 5,000 units 09/17/20 09:00 09/21/20 10:46 Cholecalciferol 1,000 Units (25 Mcg) Tab PO 5,000 units DAILY ZANE Administration Enoxaparin Sodium 90 mg 09/19/20 09:00 09/21/20 10:51 Enoxaparin Sodium 100 Mg/Ml Syringe SC 90 mg 0900,2100 [facility] Administration Protocol Metoprolol Tartrate 5 mg 09/20/20 08:16 09/21/20 03:45 Metoprolol Tartrate 5 Mg/5 Ml Vial IVP 5 mg Q6H PRN Administration To Control Heart Rate Morphine Sulfate 2 mg 09/16/20 15:45 09/18/20 10:43 Morphine 2 Mg/Ml Vial SLOW IVP 2 mg Q1H PRN Administration Moderate Breakthrough Pain Nitroglycerin 0.4 mg 09/16/20 19:15 09/20/20 18:52 Nitroglycerin 0.4 Mg Tab (25 Tab Bottle) SL 0.4 mg Q5MIN PRN Administration Chest Pain Nystatin 500,000 units 09/17/20 21:00 09/21/20 10:49 Nystatin 500,000 Units/5 Ml Udcup SSW 500,000 units QID ZANE Administration Pantoprazole Sodium 40 mg 09/20/20 09:00 09/21/20 10:50 Pantoprazole 40 Mg Tab PO 40 mg DAILY ZANE Administration Potassium Chloride 20 meq 09/18/20 08:00 09/21/20 10:51 Potassium Chloride 20 Meq Tab PO 20 meq QAM-WM ZANE Administration Pregabalin 100 mg 09/16/20 21:00 09/20/20 20:23 Pregabalin 50 Mg Cap PO 100 mg HS ZANE Administration Pregabalin 25 mg 09/17/20 09:00 09/21/20 10:50 Pregabalin 25 Mg Cap PO 25 mg QAM ZANE Administration Ramipril 2.5 mg 09/16/20 21:00 09/21/20 10:47 Ramipril 2.5 Mg Cap PO 2.5 mg BID ZANE Administration Sodium Chloride 10 ml 09/16/20 15:45 09/21/20 03:45 Flush - Normal Saline 10 Ml Syringe IVF 10 ml PRN PRN Administration Saline Flush Tamsulosin HCl 0.4 mg 09/17/20 09:00 09/21/20 10:49 Tamsulosin Hcl 0.4 Mg Cap PO 0.4 mg DAILY ZANE Administration Zolpidem Tartrate 10 mg 09/20/20 08:18 09/20/20 20:33 Zolpidem Tartrate 5 Mg Tab PO 10 mg HSPRN PRN Administration Insomnia Hospitalist Exam Vitals: Vital Signs (12 hours) Temp Pulse Resp BP BP BP Pulse Ox 09/21/20 10:50 163/98 H 09/21/20 10:47 163/98 H 09/21/20 08:20 100 09/21/20 07:36 98.1 F 106 H 22 H 135/69 100 09/21/20 07:34 107 H 18 95 09/21/20 04:00 98.1 F 108 H 20 96 09/21/20 03:45 139/91 H 09/21/20 00:40 105 H 09/20/20 23:57 99.1 F 97 18 153/79 H 97 Weight Admit Weight 198 lb Weight 198 lb General Appearance: NAD, awake alert Eye: PERRL, anicteric sclera ENT: normocephalic atraumatic, no oropharyngeal lesions Neck: supple, symmetric, no JVD, no thyromegaly Heart: no murmur, no gallops, no rubs, irregular Respiratory: no wheezes, no rales, no ronchi Respiratory - other findings: Basilar coarse breath sound, Gastrointestinal: soft, non-tender, non-distended, normal bowel sounds Extremities: no clubbing, no edema Skin: normal turgor, no lesions Neurological - other findings: Left-sided weakness noted but better than yesterday Musculoskeletal: normal tone, normal strength Psychiatric: normal affect, normal behavior Hosp A/P (1) S/P lumbar laminectomy Code(s): Z98.890 - OTHER SPECIFIED POSTPROCEDURAL STATES Status: Acute (2) CVA (cerebral vascular accident) Code(s): I63.9 - CEREBRAL INFARCTION, UNSPECIFIED Status: Acute Qualifiers: CVA mechanism: embolism Precerebral and cerebral artery: middle cerebral artery Laterality of affected vessel: right Qualified Code(s): I63.411 - Cerebral infarction due to embolism of right middle cerebral artery (3) Hyponatremia Code(s): E87.1 - HYPO-OSMOLALITY AND HYPONATREMIA Status: Acute (4) Acute renal failure superimposed on stage 3 chronic kidney disease Code(s): N17.9 - ACUTE KIDNEY FAILURE, UNSPECIFIED; N18.30 - CHRONIC KIDNEY DISEASE, STAGE 3 UNSPECIFIED Status: Acute Qualifiers: Chronic kidney disease stage 3 subtype: stage 3a (GFR 45-59) (5) Atrial fibrillation Code(s): I48.91 - UNSPECIFIED ATRIAL FIBRILLATION Status: Chronic Qualifiers: Atrial fibrillation type: paroxysmal Qualified Code(s): I48.0 - Paroxysmal atrial fibrillation (6) CAD (coronary artery disease) Code(s): I25.10 - ATHSCL HEART DISEASE OF [place] CORONARY ARTERY W/O ANG PCTRS Status: Chronic Qualifiers: Coronary Disease-Associated Artery/Lesion type: [place] artery [place] vs. transplanted heart: [place] heart Associated angina: without angina Qualified Code(s): I25.10 - Atherosclerotic heart disease of [place] coronary artery without angina pectoris (7) DM type 2 causing CKD stage 3 Code(s): E11.22 - TYPE 2 DIABETES MELLITUS W DIABETIC CHRONIC KIDNEY DISEASE; N18.30 - CHRONIC KIDNEY DISEASE, STAGE 3 UNSPECIFIED Status: Chronic Qualifiers: Diabetes mellitus regional intermodal truck driver insulin use: without [facility] use Chronic kidney disease stage 3 subtype: unspecified whether 3a or 3b Qualified Code(s): E11.22 - Type 2 diabetes mellitus with diabetic chronic kidney disease; N18.30 - Chronic kidney disease, stage 3 unspecified (8) HTN (hypertension) Code(s): I10 - ESSENTIAL (PRIMARY) HYPERTENSION Status: Chronic Qualifiers: Hypertension type: essential hypertension Qualified Code(s): I10 - Essential (primary) hypertension (9) Dyslipidemia Code(s): E78.5 - HYPERLIPIDEMIA, UNSPECIFIED Status: Chronic (10) Acute on chronic diastolic (congestive) heart failure Code(s): I50.33 - ACUTE ON CHRONIC DIASTOLIC (CONGESTIVE) HEART FAILURE Status: Acute - Plan old records reviewed/req, plan discussed w/ family, PT/OT, social media campaign manager, speech therapy, DVT proph w/lovenox Continue stroke team evaluation Chest x-ray reviewed, most likely patient has congestion from fluid given during perioperative., Doubt this patient has pneumonia given no fever, no leukocytosis, at this point will change Lasix to IV, If patient develops any fever or leukocytosis then will consider antibiotic therapy, will execute aspiration precaution, I have discussed with the patient's about nutritional concern but he will try today to feed his father as much as possible and several times based on speech therapy recommendation, if he has poor p.o. intake then I have given alternative option of [place] tube feeding and nutrition, at this point patient's son does not want that option for now, will repeat labs tomorrow Continue Lovenox, Continue goal-directed therapy Patient will need eventual rehab placement, though patient son prefers that type of rehab where he can visit him daily basis Medication reviewed and continue provide symptomatic and supportive care
[2020-09-21] MEDS ORDERED: HumaLOG 300 UNITS/3 ML VIAL SC PRN (10:56)
[2020-09-21] MEDS ORDERED: Dextrose 5% in Water 1,000 ML IV PRN (10:56)
[2020-09-21] MEDS ORDERED: Dextrose 50% Abboject 50 ML SYRINGE SLOW IVP PRN (10:56)
[2020-09-21] MEDS: Furosemide 40 MG TAB PO SCH (11:39)
[2020-09-21] MEDS: Furosemide 20 MG/2 ML VIAL SLOW IVP SCH (14:15)
[2020-09-21] MEDS: Nitroglycerin 0.4 MG TAB (25 Tab Bottle) SL PRN (15:08)
--- NOTE | 2020-09-21 15:31 | PRG ---
DATE OF SERVICE: 09/21/2020 SUBJECTIVE: Mr. Amador was up on the side of the bed. He has tolerated some solid food this morning. He will track the examiner and mumble some appropriate words. He remains hemiparetic on the left. IMPRESSION AND PLAN: The patient is recovering from a right-sided stroke, several days following his lumbar laminectomy. He has now been restarted on aspirin and Lovenox. On balance of risk, I do think it is appropriate to initiate anticoagulation and he can be converted to his oral anticoagulant Eliquis at the discretion of the hospitalist service. Rehab planning is underway. Job ID: [id number]
--- NOTE | 2020-09-21 15:32 | PDOC.CPN ---
- Subjective Date: 09/21/20 Time: 15:27 Interval history: Patient sitting up in bed, spouse & son at bedside, patient also states he was having chest pain, RN at bedside and SL Nitro given, BP 134/70, HR 100. Patient in no apparent distress, denies dizziness, nausea, headache, palpitations. No t achypnea or diaphoresis. Patient's spouse states he has episodes of chest pain intermittently before hospital admission. No EKG changes per panel monitor. He remains in A-fib. Also noted that patient had same type of chest discomfort episodes last night and he also sleeps with a Nitro patch and takes it off in the morning. He did receive 2 SL Nitro yesterday for chest discomfort. - Review of Systems General: denies: fever/chills, weight/appetite/sleep changes, night sweats, fatigue Respiratory: denies: cough, congestion, shortness of breath, exercise intolerance Cardiovascular: reports: chest pain. denies: palpitation, edema, paroxysmal nocturnal dyspnea, orthopnea Musculoskeletal: denies: pain, tenderness, stiffness, swelling, arthritis/arthralgias Neurological: denies: numbness, syncope, seizure, weakness - Objective Allergies/Adverse Reactions: Allergies Allergy/AdvReac Type Severity Reaction Status Date / Time citalopram Allergy Verified 10/30/19 23:53 ketorolac tromethamine Allergy Verified 10/30/19 23:53 [From Toradol] Penicillins Allergy Verified 10/30/19 23:53 adhesives Allergy Intermediate Uncoded 10/30/19 23:53 Visit Medications: Current Medications Acetaminophen (Acetaminophen 500 Mg Tab) 500 mg PO Q4H PRN PRN Reason: Headache/Fever or Pain Last Admin: 09/19/20 15:27 Dose: 500 mg Documented by: Acetaminophen/Codeine Phosphate (Acetaminophen/Codeine 30-300mg Tablet) 1 tab PO Q6H PRN PRN Reason: Moderate Pain (4-6) Al Hydroxide/Mg Hydroxide (Mag-Al 1200 Mg/1200 Mg/30 Ml Udcup) 30 ml PO Q4H PRN PRN Reason: Heartburn or Indigestion Albuterol Sulfate (Albuterol Sulfate 2.5 Mg/3 Ml Neb) 2.5 mg NEB Q6H PRN PRN Reason: COPD Albuterol/Ipratropium (Ipratropium/Albuterol Sulfate 3 Ml Neb) 3 ml NEB Q6H PRN PRN Reason: SOB &/or Wheezing Alprazolam (Alprazolam 0.5 Mg Tab) 0.5 mg PO TIDPRN PRN PRN Reason: Anxiety Arformoterol Tartrate (Arformoterol 15 Mcg/2 Ml Neb) 15 mcg NEB BID-RT [facility] Last Admin: 09/21/20 07:34 Dose: 15 mcg Documented by: Aspirin (Aspirin 325 Mg Tab) 325 mg PO DAILY [facility] Last Admin: 09/21/20 10:50 Dose: 325 mg Documented by: Atorvastatin Calcium (Atorvastatin Calcium 40 Mg Tab) 40 mg PO HS [facility] Last Admin: 09/20/20 20:24 Dose: 40 mg Documented by: Benzonatate (Benzonatate 100 Mg Cap) 100 mg PO Q6H PRN PRN Reason: Cough Bisacodyl (Bisacodyl 5 Mg Tab) 10 mg PO DAILYPRN PRN PRN Reason: Constipation Budesonide (Budesonide 0.5 Mg/2 Ml Neb) 0.5 mg NEB Q12H PRN PRN Reason: Wheezing Calcium Carbonate (Calcium Carbonate 500 Mg Chewtab) 1,000 mg PO Q4H PRN PRN Reason: Heartburn or Indigestion Carvedilol (Carvedilol 6.25 Mg Tab) 6.25 mg PO BID [facility] Last Admin: 09/21/20 10:50 Dose: 6.25 mg Documented by: Chlorhexidine Gluconate (Chlorhexidine Gluconate 15 Ml Udcup) 15 ml SSP ASDIR PRN PRN Reason: MOUTH ULCERS Cholecalciferol (Cholecalciferol 1,000 Units (25 Mcg) Tab) 5,000 units PO DAILY [facility] Last Admin: 09/21/20 10:46 Dose: 5,000 units Documented by: Dextrose/Water (Dextrose 50% Abboject 50 Ml Syringe) 25 gm SLOW IVP PRN PRN PRN Reason: Hypoglycemia Enoxaparin Sodium (Enoxaparin Sodium 100 Mg/Ml Syringe) 90 mg SC 0900,2100 [facility]; Protocol Last Admin: 09/21/20 10:51 Dose: 90 mg Documented by: Furosemide (Furosemide 20 Mg/2 Ml Vial) 20 mg SLOW IVP 0600,1400 [facility] Last Admin: 09/21/20 14:15 Dose: 20 mg Documented by: Glucagon (Glucagon 1 Mg/Ml Vial) 1 mg IM PRN PRN PRN Reason: Hypoglycemia Guaifenesin (Guaifenesin Sf Soln 200 Mg/10 Ml Udcup) 200 mg PO Q4H PRN PRN Reason: Cough Hydralazine HCl (Hydralazine 20 Mg/Ml Vial) 10 mg SLOW IVP Q4H PRN PRN Reason: SBP > 180 and HR < 70 Dextrose/Water (D5w) 1,000 mls @ 0 mls/hr IV .Q0M PRN PRN Reason: Hypoglycemia Insulin Human Lispro (Humalog 300 Units/3 Ml Vial) 0 units SC .BEDTIME SLIDING SC PRN PRN Reason: Bedtime Correctional Scale Insulin Human Lispro (Humalog 300 Units/3 Ml Vial) 0 units SC .MILD SLIDING SCALE PRN PRN Reason: Mild Correctional Scale Loperamide HCl (Loperamide Hcl 2 Mg Cap) 2 mg PO PRN PRN PRN Reason: Diarrhea/Loose Stools Loratadine (Loratadine 10 Mg Tab) 10 mg PO DAILYPRN PRN PRN Reason: Sinus Symptoms Magnesium Hydroxide (Milk Of Magnesia 30 Ml Udcup) 30 ml PO Q12H PRN PRN Reason: Constipation Metoprolol Tartrate (Metoprolol Tartrate 5 Mg/5 Ml Vial) 5 mg IVP Q6H PRN PRN Reason: To Control Heart Rate Last Admin: 09/21/20 03:45 Dose: 5 mg Documented by: Morphine Sulfate (Morphine 2 Mg/Ml Vial) 2 mg SLOW IVP Q1H PRN PRN Reason: Moderate Breakthrough Pain Last Admin: 09/18/20 10:43 Dose: 2 mg Documented by: Nitroglycerin (Nitroglycerin 0.4 Mg Tab (25 Tab Bottle)) 0.4 mg SL Q5MIN PRN PRN Reason: Chest Pain Last Admin: 09/21/20 15:08 Dose: 0.4 mg Documented by: Nystatin (Nystatin 500,000 Units/5 Ml Udcup) 500,000 units SSW QID [facility] Last Admin: 09/21/20 13:45 Dose: Not Given Documented by: Ondansetron HCl (Ondansetron Pf 4 Mg/2 Ml Vial) 4 mg IM Q6H PRN PRN Reason: Nausea/Vomiting Ondansetron HCl (Ondansetron Odt 4 Mg Tab) 4 mg PO Q6H PRN PRN Reason: Nausea/Vomiting Pantoprazole Sodium (Pantoprazole 40 Mg Tab) 40 mg PO DAILY [facility] Last Admin: 09/21/20 10:50 Dose: 40 mg Documented by: Potassium Chloride (Potassium Chloride 20 Meq Tab) 20 meq PO QAM-[facility] Last Admin: 09/21/20 10:51 Dose: 20 meq Documented by: Pregabalin (Pregabalin 50 Mg Cap) 100 mg PO HS [facility] Last Admin: 09/20/20 20:23 Dose: 100 mg Documented by: Pregabalin (Pregabalin 25 Mg Cap) 25 mg PO QAM [facility] Last Admin: 09/21/20 10:50 Dose: 25 mg Documented by: Promethazine HCl (Promethazine 25 Mg Tab) 12.5 mg PO Q4H PRN PRN Reason: Nausea/Vomiting Ramipril (Ramipril 2.5 Mg Cap) 2.5 mg PO BID [facility] Last Admin: 09/21/20 10:47 Dose: 2.5 mg Documented by: Senna/Docusate Sodium (Senokot S 8.6-50 Mg Tab) 2 tab PO BIDPRN PRN PRN Reason: Constipation Sodium Chloride (Flush - Normal Saline 10 Ml Syringe) 10 ml IVF PRN PRN PRN Reason: Saline Flush Last Admin: 09/21/20 03:45 Dose: 10 ml Documented by: Sodium Chloride (Flush - Normal Saline 10 Ml Syringe) 10 ml IVF PRN PRN PRN Reason: Saline Flush Sodium Chloride (Sodium Chloride 0.65% Nasal 44 Ml Bot) 0 ml EA NARE QIDPRN PRN PRN Reason: Nasal Congestion Tamsulosin HCl (Tamsulosin Hcl 0.4 Mg Cap) 0.4 mg PO DAILY [facility] Last Admin: 09/21/20 10:49 Dose: 0.4 mg Documented by: Throat Lozenges (Cepastat Lozenges 1 Taiwo) 1 taiwo PO Q2H PRN PRN Reason: Sore Throat Tizanidine HCl (Tizanidine Hcl 4 Mg Tab) 4 mg PO Q6H PRN PRN Reason: MUSCLE SPASM Tramadol HCl (Tramadol Hcl 50 Mg Tab) 50 mg PO Q6H PRN PRN Reason: PAIN (1-3) Zolpidem Tartrate (Zolpidem Tartrate 5 Mg Tab) 10 mg PO HSPRN PRN PRN Reason: Insomnia Last Admin: 09/20/20 20:33 Dose: 10 mg Documented by: Vital Signs & Weight: Vital Signs Temp Pulse Pulse Pulse Resp BP BP 09/21/20 14:52 09/21/20 11:35 96.8 F L 110 H 22 H 09/21/20 11:14 110 H 104 H 144/69 H 09/21/20 10:50 163/98 H 09/21/20 10:47 163/98 H 09/21/20 08:20 09/21/20 07:36 98.1 F 106 H 22 H 09/21/20 07:34 107 H 18 09/21/20 04:00 98.1 F 108 H 20 09/21/20 03:45 BP BP Pulse Ox 09/21/20 14:52 97 09/21/20 11:35 144/69 H 97 09/21/20 11:14 163/98 H 09/21/20 10:50 09/21/20 10:47 09/21/20 08:20 100 09/21/20 07:36 135/69 100 09/21/20 07:34 95 09/21/20 04:00 96 09/21/20 03:45 139/91 H Admit Weight 198 lb Weight 198 lb - Quality Measures Condition: Atrial Fibrillation/Flutter (hx or current) CV meds: Beta Myranda: Yes - Physical Exam General: no apparent distress, other (unable to answer all questions d/t recent CVA) HEENT: mucus membranes moist Neck: supple neck, no bruit Cardiac: no murmur, irregularly regular Lungs: normal breath sounds, scattered rhonchi Neuro: numbness, weakness, other (recent CVA) Abdomen: active bowel sounds, soft Extremities: 2+ Posterior Tibial, 2+ Dorsalis Pedus Skin: clear Musculoskeletal: no pain - Labs Result Diagrams: 09/21/20 04:23 09/21/20 04:23 Troponin/CKMB Troponin I 0.080 ng/mL (< 0.028) H 09/20/20 19:19 - EKG Interpretation EKG Method: Telemetry EKG shows: atrial fibrillation - Assessment/Plan Assessment/Plan: 1. Atrial fibrillation: His heart rate remains in the 100's will increase Coreg, will add Low dose Digoxin 2. 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 Biprosthetic aortic valve 4. Coronary artery disease s/p CABG & aortic valve replacment 5. Acute on chronic diastolic congestive heart failure: ECHO ordered 6. 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 Chest pain: patient did have an episode of chest pain, relieved by SL Nitro, no EKG changes, no apparent distress. Spouse states he has these episodes at home often. He also wears a Nitro paste at night, will re-start this. Pt. seen and eval. by me. I agree with the A/P by the MAPPING PILOT. Chest clear. irreg/irreg. gjm
[2020-09-21] MEDS: Atorvastatin Calcium 40 MG TAB PO SCH (22:10)
[2020-09-21] MEDS: Pregabalin 50 MG CAP PO SCH (22:10)
[2020-09-21] MEDS: Nitroglycerin 2% Ointment 1 INCH/1 GM Packet TOP SCH (22:10)
[2020-09-22 04:18] LABS: #Eosinphils 0.1 thou/uL (0.0-0.7); #Lymphocytes 1.5 thou/uL (1.20-3.40); #Monocytes 0.9 thou/uL (0.11-0.59); #Neutrophils 4.8 thou/uL (1.40-6.50); %Basophils 0.2 % (0.0-1.0); %Eosinophils 1.8 % (0.0-10.0); %Lymphocytes 20.7 % (21.0-51.0); %Monocytes 12.5 % (0.0-10.0); %Neutrophils 64.7 % (42.0-75.0); Hemoglobin 13.7 g/dL (14.0-18.0); Mean Corpuscular HGB CONC 31.6 g/dL (32.0-36.0); Mean Corpuscular Hemoglobin 27.3 pg (27.0-31.0); Mean Corpuscular Volume 86.1 fL (78.0-98.0); Mean Platelet Volume 9.4 fL (7.4-10.4); Platelet Count 174 thou/uL (130-400); RBC Distribution Width 15.7 % (11.5-14.5); Red Blood Cell (RBC) Count 5.04 mill/uL (4.70-6.10); White Blood Cell (WBC) Count 7.4 thou/uL (4.8-10.8)
[2020-09-22 05:11] LABS: Anion Gap 16 mmol/L (10-20); BUN (Urea Nitrogen) 17 mg/dL (8.4-25.7); Calc. Creatinine Clearance 80 mL/min (70-130); Calcium 9.2 mg/dL (7.8-10.44); Carbon Dioxide 32 mmol/L (23-31); Chloride 97 mmol/L (98-107); Glucose 111 mg/dL (83-110); Magnesium 1.5 mg/dL (1.6-2.6); Potassium 3.5 mmol/L (3.5-5.1); Sodium 141 mmol/L (136-145)
[2020-09-22] MEDS: Furosemide 20 MG/2 ML VIAL SLOW IVP SCH ×2 (05:12→14:56)
[2020-09-22] MEDS ORDERED: Magnesium 2 GM/50 ML 2 GM in Premix Bag 1 BAG IVPB SCH (07:45)
[2020-09-22] MEDS ORDERED: Potassium Phosphate 15 MMOL in Sodium Chloride 0.9% 250 ML 250 ML IVPB SCH (07:45)
[2020-09-22] MEDS: Aspirin 325 MG TAB PO SCH (09:27)
[2020-09-22] MEDS: Cholecalciferol 1,000 UNITS (25 MCG) TAB PO SCH (09:27)
[2020-09-22] MEDS: Digoxin 0.125 MG TAB PO SCH (09:28)
[2020-09-22] MEDS: Nystatin 500,000 UNITS/5 ML UDCUP SSW SCH ×4 (09:28→20:44)
[2020-09-22] MEDS: Carvedilol 6.25 MG TAB PO SCH ×2 (09:29→17:57)
[2020-09-22] MEDS: Potassium Chloride 20 MEQ TAB PO SCH (09:30)
[2020-09-22] MEDS: Tamsulosin HCl 0.4 MG CAP PO SCH (09:30)
[2020-09-22] MEDS: Pregabalin 25 MG CAP PO SCH (09:31)
[2020-09-22] MEDS: Enoxaparin Sodium 100 MG/ML SYRINGE SC SCH ×2 (09:55→20:44)
--- NOTE | 2020-09-22 09:55 | PDOC.HOSPP ---
- Subjective Encounter Date: 09/22/20 Encounter Time: 07:20 Subjective: Patient has oral intake which is adequate, he is participating with therapy, no overnight event, - Objective Vital Signs & Weight: Vital Signs (12 hours) Temp Pulse Resp BP BP Pulse Ox 09/22/20 07:54 97.6 F 102 H 14 110/72 93 L 09/22/20 04:45 97.4 F L 111 H 18 122/63 94 L Weight Admit Weight 198 lb Weight 198 lb I&O: 09/21/20 09/22/20 09/23/20 06:59 06:59 06:59 Intake Total 390 240 Output Total 1605 2720 Balance -2059 Result Diagrams: 09/22/20 03:58 09/22/20 03:58 Additional Labs: Accuchecks 09/21/20 09/21/20 09/21/20 19:54 16:02 09:57 POC Glucose 126 H 122 H 128 H EKG Reviewed by me: Yes Hospitalist ROS - Review of Systems ENT: denies: ear pain, ear discharge, nose pain, nose discharge, nose congestion, mouth pain, mouth swelling, throat pain, throat swelling, other Respiratory: denies: cough, dry, shortness of breath, hemoptysis, SOB with excertion, pleuritic pain, sputum, wheezing, other Cardiovascular: denies: chest pain, palpitations, orthopnea, paroxysmal noc. dyspnea, edema, light headedness, other Gastrointestinal: denies: nausea, vomiting, abdominal pain, diarrhea, constipation, melena, hematochezia, other Genitourinary: denies: dysuria, frequency, incontinence, hematuria, retention, other Musculoskeletal: denies: neck pain, shoulder pain, arm pain, back pain, hand pain, leg pain, foot pain, other Skin: denies: rash, lesions, zakia, bruising, other Neurological: reports: weakness. denies: numbness, incoordination, change in speech, confusion, seizures, other - Medication Medications: Active Medications Generic Name Dose Route Start Last Admin Trade Name Freq PRN Reason Stop Dose Admin Acetaminophen 500 mg 09/19/20 15:11 09/19/20 15:27 Acetaminophen 500 Mg Tab PO 500 mg Q4H PRN Administration Headache/Fever or Pain Acetaminophen/Codeine Phosphate 1 tab 09/20/20 08:17 09/22/20 06:24 Acetaminophen/Codeine 30-300mg Tablet PO 1 tab Q6H PRN Administration Moderate Pain (4-6) Arformoterol Tartrate 15 mcg 09/17/20 06:30 09/21/20 19:04 Arformoterol 15 Mcg/2 Ml Neb NEB 15 mcg BID-RT [facility] Administration Aspirin 325 mg 09/20/20 09:00 09/22/20 09:27 Aspirin 325 Mg Tab PO 325 mg DAILY [facility] Administration Atorvastatin Calcium 40 mg 09/20/20 21:00 09/21/20 22:10 Atorvastatin Calcium 40 Mg Tab PO 40 mg HS [facility] Administration Carvedilol 12.5 mg 09/21/20 17:00 09/22/20 09:29 Carvedilol 6.25 Mg Tab PO 12.5 mg BID-WM [facility] Administration Cholecalciferol 5,000 units 09/17/20 09:00 09/22/20 09:27 Cholecalciferol 1,000 Units (25 Mcg) Tab PO 5,000 units DAILY [facility] Administration Digoxin 0.125 mg 09/22/20 09:00 09/22/20 09:28 Digoxin 0.125 Mg Tab PO 0.125 mg DAILY [facility] Administration Enoxaparin Sodium 90 mg 09/19/20 09:00 09/21/20 22:09 Enoxaparin Sodium 100 Mg/Ml Syringe SC 90 mg 0900,2100 [facility] Administration Protocol Furosemide 20 mg 09/21/20 14:00 09/22/20 05:12 Furosemide 20 Mg/2 Ml Vial SLOW IVP 20 mg 0600,1400 [facility] Administration Metoprolol Tartrate 5 mg 09/20/20 08:16 09/21/20 03:45 Metoprolol Tartrate 5 Mg/5 Ml Vial IVP 5 mg Q6H PRN Administration To Control Heart Rate Morphine Sulfate 2 mg 09/16/20 15:45 09/18/20 10:43 Morphine 2 Mg/Ml Vial SLOW IVP 2 mg Q1H PRN Administration Moderate Breakthrough Pain Nitroglycerin 0.4 mg 09/16/20 19:15 09/21/20 15:08 Nitroglycerin 0.4 Mg Tab (25 Tab Bottle) SL 0.4 mg Q5MIN PRN Administration Chest Pain Nitroglycerin 0.5 inch 09/21/20 21:00 09/21/20 22:10 Nitroglycerin 2% Ointment 1 Inch/1 Gm Packet TOP 0.5 inch HS [facility] Administration Nystatin 500,000 units 09/17/20 21:00 09/22/20 09:28 Nystatin 500,000 Units/5 Ml Udcup SSW 500,000 units QID [facility] Administration Pantoprazole Sodium 40 mg 09/20/20 09:00 09/22/20 09:27 Pantoprazole 40 Mg Tab PO 40 mg DAILY [facility] Administration Potassium Chloride 20 meq 09/18/20 08:00 09/22/20 09:30 Potassium Chloride 20 Meq Tab PO 20 meq QAM-WM [facility] Administration Pregabalin 100 mg 09/16/20 21:00 09/21/20 22:10 Pregabalin 50 Mg Cap PO 100 mg HS [facility] Administration Pregabalin 25 mg 09/17/20 09:00 09/22/20 09:31 Pregabalin 25 Mg Cap PO 25 mg QAM [facility] Administration Ramipril 2.5 mg 09/16/20 21:00 09/22/20 09:27 Ramipril 2.5 Mg Cap PO 2.5 mg BID [facility] Administration Sodium Chloride 10 ml 09/16/20 15:45 09/22/20 05:12 Flush - Normal Saline 10 Ml Syringe IVF 10 ml PRN PRN Administration Saline Flush Tamsulosin HCl 0.4 mg 09/17/20 09:00 09/22/20 09:30 Tamsulosin Hcl 0.4 Mg Cap PO 0.4 mg DAILY [facility] Administration Zolpidem Tartrate 10 mg 09/20/20 08:18 09/20/20 20:33 Zolpidem Tartrate 5 Mg Tab PO 10 mg HSPRN PRN Administration Insomnia Hospitalist Exam Vitals: Vital Signs (12 hours) Temp Pulse Resp BP BP Pulse Ox 09/22/20 07:54 97.6 F 102 H 14 110/72 93 L 09/22/20 04:45 97.4 F L 111 H 18 122/63 94 L Weight Admit Weight 198 lb Weight 198 lb General Appearance: NAD, awake alert Eye: PERRL, anicteric sclera ENT: normocephalic atraumatic, no oropharyngeal lesions Neck: supple, symmetric, no JVD, no thyromegaly Heart: no murmur, no gallops, no rubs, irregular Respiratory: no wheezes, no rales, no ronchi Gastrointestinal: soft, non-tender, non-distended, normal bowel sounds Extremities: no cyanosis, no clubbing, no edema Skin: normal turgor, no lesions Neurological: no new deficit Neurological - other findings: Left-sided weakness Psychiatric: normal affect, normal behavior Hosp A/P (1) S/P lumbar laminectomy Code(s): Z98.890 - OTHER SPECIFIED POSTPROCEDURAL STATES Status: Acute (2) CVA (cerebral vascular accident) Code(s): I63.9 - CEREBRAL INFARCTION, UNSPECIFIED Status: Acute Qualifiers: CVA mechanism: embolism Precerebral and cerebral artery: middle cerebral artery Laterality of affected vessel: right Qualified Code(s): I63.411 - Cerebral infarction due to embolism of right middle cerebral artery (3) Acute on chronic systolic (congestive) heart failure Code(s): I50.23 - ACUTE ON CHRONIC SYSTOLIC (CONGESTIVE) HEART FAILURE Status: Acute (4) Hyponatremia Code(s): E87.1 - HYPO-OSMOLALITY AND HYPONATREMIA Status: Acute (5) Acute renal failure superimposed on stage 3 chronic kidney disease Code(s): N17.9 - ACUTE KIDNEY FAILURE, UNSPECIFIED; N18.30 - CHRONIC KIDNEY DISEASE, STAGE 3 UNSPECIFIED Status: Acute Qualifiers: Chronic kidney disease stage 3 subtype: stage 3a (GFR 45-59) (6) Atrial fibrillation Code(s): I48.91 - UNSPECIFIED ATRIAL FIBRILLATION Status: Chronic Qualifiers: Atrial fibrillation type: paroxysmal Qualified Code(s): I48.0 - Paroxysmal atrial fibrillation (7) CAD (coronary artery disease) Code(s): I25.10 - ATHSCL HEART DISEASE OF [place] CORONARY ARTERY W/O ANG PCTRS Status: Chronic Qualifiers: Coronary Disease-Associated Artery/Lesion type: [place] artery [place] vs. transplanted heart: [place] heart Associated angina: without angina Qualified Code(s): I25.10 - Atherosclerotic heart disease of [place] coronary artery without angina pectoris (8) DM type 2 causing CKD stage 3 Code(s): E11.22 - TYPE 2 DIABETES MELLITUS W DIABETIC CHRONIC KIDNEY DISEASE; N18.30 - CHRONIC KIDNEY DISEASE, STAGE 3 UNSPECIFIED Status: Chronic Qualifiers: Diabetes mellitus exterminator termite insulin use: without exterminator termite use Chronic kidney disease stage 3 subtype: unspecified whether 3a or 3b Qualified Code(s): E11.22 - Type 2 diabetes mellitus with diabetic chronic kidney disease; N18.30 - Chronic kidney disease, stage 3 unspecified (9) HTN (hypertension) Code(s): I10 - ESSENTIAL (PRIMARY) HYPERTENSION Status: Chronic Qualifiers: Hypertension type: essential hypertension Qualified Code(s): I10 - Essential (primary) hypertension (10) Dyslipidemia Code(s): E78.5 - HYPERLIPIDEMIA, UNSPECIFIED Status: Chronic (11) Hypophosphatemia Code(s): E83.39 - OTHER DISORDERS OF PHOSPHORUS METABOLISM Status: Acute (12) Hypomagnesemia Code(s): E83.42 - HYPOMAGNESEMIA Status: Acute - Plan old records reviewed/req, plan discussed w/ family, PT/OT, social insurance adviser, speech therapy Continue stroke team evaluation, Discussed with the patient's son bedside, Continue PT OT and speech therapy Medication reviewed and continue provide symptomatic and supportive care Patient will need a rehab but family member wants that they should attend him at rehab facility, Social work needs to work on placement. Patient is currently on goal-directed therapy for systolic CHF, Replace potassium phosphate and magnesium sulfate
[2020-09-22] MEDS: Arformoterol 15 MCG/2 ML NEB NEB SCH ×2 (10:24→19:25)
--- NOTE | 2020-09-22 10:48 | PRG ---
DATE OF SERVICE: 09/22/2020 SUBJECTIVE: No overnight events. I visited Mr. Amador in the stroke unit. He is sitting up comfortably in the bed. His family reports his left-sided strength appears improved and he is also starting to tolerate a little more on his diet. OBJECTIVE: On exam this morning, he has some left-sided neglect, but he is oriented to person and place. He has 5/5 strength on the right and his left side strength has improved significantly, 3+/4 throughout. He is tolerating some pureed foods this morning. ASSESSMENT AND PLAN: He should continue to work with Physical Therapy/Occupational Therapy and advance diet. Any anticoagulation plan for the medical or Neurology team is okay with our service. Rehab planning is underway and we feel that he can likely transition to inpatient rehab in the near future. Job ID: [id number]
--- NOTE | 2020-09-22 11:31 | PDOC.CPN ---
- Subjective Date: 09/22/20 Time: 10:45 Interval history: Mr. Amador is sitting up in bed, he is much more awake, alert & responsive today. He states he is ready to get out of bed and would like to sit in the chair. His son is at bedside, he denies any more episodes of chest pain throughout the night and this morning. His son also states that he has starting moving his left leg and arm today as well. - Review of Systems General: denies: fever/chills, weight/appetite/sleep changes, night sweats, fatigue Respiratory: denies: cough, congestion, shortness of breath, exercise intolerance Cardiovascular: denies: chest pain, palpitation, edema, paroxysmal nocturnal dyspnea, orthopnea Gastrointestinal: denies: nausea, vomiting, diarrhea, constipation, abd pain, GI bleeding Musculoskeletal: denies: pain, tenderness, stiffness, swelling, arthritis/arth ralgias Neurological: denies: numbness, syncope, seizure, weakness - Objective Allergies/Adverse Reactions: Allergies Allergy/AdvReac Type Severity Reaction Status Date / Time citalopram Allergy Verified 10/30/19 23:53 ketorolac tromethamine Allergy Verified 10/30/19 23:53 [From Toradol] Penicillins Allergy Verified 10/30/19 23:53 adhesives Allergy Intermediate Uncoded 10/30/19 23:53 Visit Medications: Current Medications Acetaminophen (Acetaminophen 500 Mg Tab) 500 mg PO Q4H PRN PRN Reason: Headache/Fever or Pain Last Admin: 09/19/20 15:27 Dose: 500 mg Documented by: Acetaminophen/Codeine Phosphate (Acetaminophen/Codeine 30-300mg Tablet) 1 tab PO Q6H PRN PRN Reason: Moderate Pain (4-6) Last Admin: 09/22/20 06:24 Dose: 1 tab Documented by: Al Hydroxide/Mg Hydroxide (Mag-Al 1200 Mg/1200 Mg/30 Ml Udcup) 30 ml PO Q4H PRN PRN Reason: Heartburn or Indigestion Albuterol Sulfate (Albuterol Sulfate 2.5 Mg/3 Ml Neb) 2.5 mg NEB Q6H PRN PRN Reason: COPD Albuterol/Ipratropium (Ipratropium/Albuterol Sulfate 3 Ml Neb) 3 ml NEB Q6H PRN PRN Reason: SOB &/or Wheezing Alprazolam (Alprazolam 0.5 Mg Tab) 0.5 mg PO TIDPRN PRN PRN Reason: Anxiety Arformoterol Tartrate (Arformoterol 15 Mcg/2 Ml Neb) 15 mcg NEB BID-RT [facility] Last Admin: 09/22/20 10:24 Dose: Not Given Documented by: Aspirin (Aspirin 325 Mg Tab) 325 mg PO DAILY [facility] Last Admin: 09/22/20 09:27 Dose: 325 mg Documented by: Atorvastatin Calcium (Atorvastatin Calcium 40 Mg Tab) 40 mg PO HS [facility] Last Admin: 09/21/20 22:10 Dose: 40 mg Documented by: Benzonatate (Benzonatate 100 Mg Cap) 100 mg PO Q6H PRN PRN Reason: Cough Bisacodyl (Bisacodyl 5 Mg Tab) 10 mg PO DAILYPRN PRN PRN Reason: Constipation Budesonide (Budesonide 0.5 Mg/2 Ml Neb) 0.5 mg NEB Q12H PRN PRN Reason: Wheezing Calcium Carbonate (Calcium Carbonate 500 Mg Chewtab) 1,000 mg PO Q4H PRN PRN Reason: Heartburn or Indigestion Carvedilol (Carvedilol 6.25 Mg Tab) 12.5 mg PO BID-WM [facility] Last Admin: 09/22/20 09:29 Dose: 12.5 mg Documented by: Chlorhexidine Gluconate (Chlorhexidine Gluconate 15 Ml Udcup) 15 ml SSP ASDIR PRN PRN Reason: MOUTH ULCERS Cholecalciferol (Cholecalciferol 1,000 Units (25 Mcg) Tab) 5,000 units PO DAILY [facility] Last Admin: 09/22/20 09:27 Dose: 5,000 units Documented by: Dextrose/Water (Dextrose 50% Abboject 50 Ml Syringe) 25 gm SLOW IVP PRN PRN PRN Reason: Hypoglycemia Digoxin (Digoxin 0.125 Mg Tab) 0.125 mg PO DAILY [facility] Last Admin: 09/22/20 09:28 Dose: 0.125 mg Documented by: Enoxaparin Sodium (Enoxaparin Sodium 100 Mg/Ml Syringe) 90 mg SC 0900,2100 [facility]; Protocol Last Admin: 09/22/20 09:55 Dose: 90 mg Documented by: Furosemide (Furosemide 20 Mg/2 Ml Vial) 20 mg SLOW IVP 0600,1400 [facility] Last Admin: 09/22/20 05:12 Dose: 20 mg Documented by: Glucagon (Glucagon 1 Mg/Ml Vial) 1 mg IM PRN PRN PRN Reason: Hypoglycemia Guaifenesin (Guaifenesin Sf Soln 200 Mg/10 Ml Udcup) 200 mg PO Q4H PRN PRN Reason: Cough Hydralazine HCl (Hydralazine 20 Mg/Ml Vial) 10 mg SLOW IVP Q4H PRN PRN Reason: SBP > 180 and HR < 70 Dextrose/Water (D5w) 1,000 mls @ 0 mls/hr IV .Q0M PRN PRN Reason: Hypoglycemia Potassium Phosphate 15 mmol/ (Sodium Chloride) 255 mls @ 62.5 mls/hr IVPB NOW ZANE Stop: 09/22/20 11:50 Last Admin: 09/22/20 09:56 Dose: 255 mls Documented by: Insulin Human Lispro (Humalog 300 Units/3 Ml Vial) 0 units SC .BEDTIME SLIDING SC PRN PRN Reason: Bedtime Correctional Scale Insulin Human Lispro (Humalog 300 Units/3 Ml Vial) 0 units SC .MILD SLIDING SCALE PRN PRN Reason: Mild Correctional Scale Loperamide HCl (Loperamide Hcl 2 Mg Cap) 2 mg PO PRN PRN PRN Reason: Diarrhea/Loose Stools Loratadine (Loratadine 10 Mg Tab) 10 mg PO DAILYPRN PRN PRN Reason: Sinus Symptoms Magnesium Hydroxide (Milk Of Magnesia 30 Ml Udcup) 30 ml PO Q12H PRN PRN Reason: Constipation Metoprolol Tartrate (Metoprolol Tartrate 5 Mg/5 Ml Vial) 5 mg IVP Q6H PRN PRN Reason: To Control Heart Rate Last Admin: 09/21/20 03:45 Dose: 5 mg Documented by: Morphine Sulfate (Morphine 2 Mg/Ml Vial) 2 mg SLOW IVP Q1H PRN PRN Reason: Moderate Breakthrough Pain Last Admin: 09/18/20 10:43 Dose: 2 mg Documented by: Nitroglycerin (Nitroglycerin 0.4 Mg Tab (25 Tab Bottle)) 0.4 mg SL Q5MIN PRN PRN Reason: Chest Pain Last Admin: 09/21/20 15:08 Dose: 0.4 mg Documented by: Nitroglycerin (Nitroglycerin 2% Ointment 1 Inch/1 Gm Packet) 0.5 inch TOP [facility] Last Admin: 09/21/20 22:10 Dose: 0.5 inch Documented by: Nystatin (Nystatin 500,000 Units/5 Ml Udcup) 500,000 units SSW QID [facility] Last Admin: 09/22/20 09:28 Dose: 500,000 units Documented by: Ondansetron HCl (Ondansetron Pf 4 Mg/2 Ml Vial) 4 mg IM Q6H PRN PRN Reason: Nausea/Vomiting Ondansetron HCl (Ondansetron Odt 4 Mg Tab) 4 mg PO Q6H PRN PRN Reason: Nausea/Vomiting Pantoprazole Sodium (Pantoprazole 40 Mg Tab) 40 mg PO DAILY [facility] Last Admin: 09/22/20 09:27 Dose: 40 mg Documented by: Potassium Chloride (Potassium Chloride 20 Meq Tab) 20 meq PO QA-[facility] Last Admin: 09/22/20 09:30 Dose: 20 meq Documented by: Pregabalin (Pregabalin 50 Mg Cap) 100 mg PO [facility] Last Admin: 09/21/20 22:10 Dose: 100 mg Documented by: Pregabalin (Pregabalin 25 Mg Cap) [facility] Last Admin: 09/22/20 09:31 Dose: 25 mg Documented by: Promethazine HCl (Promethazine 25 Mg Tab) 12.5 mg PO Q4H PRN PRN Reason: Nausea/Vomiting Ramipril (Ramipril 2.5 Mg Cap) 2.5 mg PO BID [facility] Last Admin: 09/22/20 09:27 Dose: 2.5 mg Documented by: Senna/Docusate Sodium (Senokot S 8.6-50 Mg Tab) 2 tab PO BIDPRN PRN PRN Reason: Constipation Sodium Chloride (Flush - Normal Saline 10 Ml Syringe) 10 ml IVF PRN PRN PRN Reason: Saline Flush Last Admin: 09/22/20 05:12 Dose: 10 ml Documented by: Sodium Chloride (Flush - Normal Saline 10 Ml Syringe) 10 ml IVF PRN PRN PRN Reason: Saline Flush Sodium Chloride (Sodium Chloride 0.65% Nasal 44 Ml Bot) 0 ml EA NARE QIDPRN PRN PRN Reason: Nasal Congestion Tamsulosin HCl (Tamsulosin Hcl 0.4 Mg Cap) 0.4 mg PO DAILY [facility] Last Admin: 09/22/20 09:30 Dose: 0.4 mg Documented by: Throat Lozenges (Cepastat Lozenges 1 Taiwo) 1 taiwo PO Q2H PRN PRN Reason: Sore Throat Tizanidine HCl (Tizanidine Hcl 4 Mg Tab) 4 mg PO Q6H PRN PRN Reason: MUSCLE SPASM Tramadol HCl (Tramadol Hcl 50 Mg Tab) 50 mg PO Q6H PRN PRN Reason: PAIN (1-3) Zolpidem Tartrate (Zolpidem Tartrate 5 Mg Tab) 10 mg PO HSPRN PRN PRN Reason: Insomnia Last Admin: 09/20/20 20:33 Dose: 10 mg Documented by: Vital Signs & Weight: Vital Signs Temp Pulse Resp BP BP Pulse Ox 09/22/20 07:54 97.6 F 102 H 14 110/72 93 L 09/22/20 04:45 97.4 F L 111 H 18 122/63 94 L Admit Weight 198 lb Weight 198 lb - Quality Measures Condition: Atrial Fibrillation/Flutter (hx or current) CV meds: Beta Myranda: Yes, PAU/ARB: Yes, Statin: Yes, ASA: Yes, Anticoagulant: Yes (lovenox 90 BID) - Medication Contraindications No Antithrombotic reason: Treatment not indicated - Physical Exam General: appears well, no apparent distress, other (awake, alert and much more r esponsive today, he is answering questions appropriately) HEENT: mucus membranes moist Neck: no JVD/HJR, no bruit Cardiac: no murmur, irregularly regular Lungs: normal breath sounds, no wheeze, rales, rhonchi, oxygen Neuro: grossly intact, motor function intact, numbness, weakness, other (wekaness to left side from recent CVA) Abdomen: active bowel sounds, soft Extremities: no cyanosis, no clubbing, no edema Skin: clear Musculoskeletal: no pain - Labs Result Diagrams: 09/22/20 03:58 09/22/20 03:58 Troponin/CKMB Troponin I 0.080 ng/mL (< 0.028) H 09/20/20 19:19 - EKG Interpretation EKG Method: Telemetry EKG shows: atrial fibrillation - Assessment/Plan Assessment/Plan: 1. Atrial fibrillation: He remains in atrial fibrillation, his heart rate has been relatively controlled in the 80's-100 per telemetry records. he is CHADSVASC score of 7, he is currently on full dose Lovenox. Patient is a high fall risk d/t recent CVA. 2. 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 Biprosthetic aortic valve 4. Coronary artery disease s/p CABG & aortic valve replacment 5. Acute on chronic diastolic congestive heart failure: ECHO revealed an ejection fraction of 15-20%, mildly dilated left atrium, trace mitral regurgitation, these findings were discussed with the family at bedside 6. 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 Chest pain: patient denies any further episodes of chest pain since yesterday. We will continue current treatment plan at this time, the family and case management are working to decide which placement would be best for patient and family.
[2020-09-22] MEDS: Pregabalin 50 MG CAP PO SCH (20:43)
[2020-09-22] MEDS: Atorvastatin Calcium 40 MG TAB PO SCH (20:43)
[2020-09-22] MEDS: Nitroglycerin 2% Ointment 1 INCH/1 GM Packet TOP SCH (20:44)
[2020-09-22] MEDS: ALPRAZolam 0.5 MG TAB PO PRN (20:48)
[2020-09-22] MEDS: Zolpidem Tartrate 5 MG TAB PO PRN (20:48)
[2020-09-23] MEDS ORDERED: Nystatin 500,000 UNITS/5 ML UDCUP ONE (09:00)
[2020-09-23] MEDS ORDERED: Carvedilol 6.25 MG TAB ONE (09:00)
[2020-09-23] MEDS: Arformoterol 15 MCG/2 ML NEB NEB SCH ×2 (09:30→19:20)
--- NOTE | 2020-09-23 12:14 | PRG ---
DATE OF SERVICE: 09/23/2020 SUBJECTIVE: The patient has remained stable on the stroke unit. No overnight events. He is resting comfortably this morning. His son is at the bedside and reports he seems to be tolerating a bit more p.o. today. OBJECTIVE: GENERAL: On exam, the patient awakens easily. He is oriented to person and place. NEUROLOGIC: He is moving all 4s, but still has moderate left-sided weakness compared to the right. He has a notable left-sided facial droop and ongoing dysarthria. ASSESSMENT AND PLAN: The patient continues to improve slowly. He remains stable. He is tolerating his soft diet better. I feel that he is ready for inpatient rehabilitation at any point in time, and we will begin working to transition soon. Job ID: [id number]
--- NOTE | 2020-09-23 12:39 | PDOC.HOSPP ---
- Subjective Encounter Date: 09/23/20 Encounter Time: 07:15 Subjective: Patient seen and examined. No new complaints. No overnight events - Objective Vital Signs & Weight: Vital Signs (12 hours) Pulse Resp Pulse Ox 09/23/20 09:30 106 H 16 95 Weight Admit Weight 198 lb Weight 198 lb I&O: 09/22/20 09/23/20 09/24/20 06:59 06:59 06:59 Intake Total 240 Output Total [id number] Balance -1885 -250 Result Diagrams: 09/22/20 03:58 09/22/20 03:58 EKG Reviewed by me: Yes Hospitalist ROS - Review of Systems ENT: denies: ear pain, ear discharge, nose pain, nose discharge, nose congestion, mouth pain, mouth swelling, throat pain, throat swelling, other Respiratory: denies: cough, dry, shortness of breath, hemoptysis, SOB with excertion, pleuritic pain, sputum, wheezing, other Cardiovascular: denies: chest pain, palpitations, orthopnea, paroxysmal noc. dyspnea, edema, light headedness, other Gastrointestinal: denies: nausea, vomiting, abdominal pain, diarrhea, constipation, melena, hematochezia, other Genitourinary: denies: dysuria, frequency, incontinence, hematuria, retention, other Musculoskeletal: denies: neck pain, shoulder pain, arm pain, back pain, hand pain, leg pain, foot pain, other - Medication Medications: Active Medications Generic Name Dose Route Start Last Admin Trade Name Freq PRN Reason Stop Dose Admin Acetaminophen 500 mg 09/19/20 15:11 09/19/20 15:27 Acetaminophen 500 Mg Tab PO 500 mg Q4H PRN Administration Headache/Fever or Pain Acetaminophen/Codeine Phosphate 1 tab 09/20/20 08:17 09/22/20 06:24 Acetaminophen/Codeine 30-300mg Tablet PO 1 tab Q6H PRN Administration Moderate Pain (4-6) Alprazolam 0.5 mg 09/20/20 08:18 09/22/20 20:48 Alprazolam 0.5 Mg Tab PO 0.5 mg TIDPRN PRN Administration Anxiety Arformoterol Tartrate 15 mcg 09/17/20 06:30 09/23/20 09:30 Arformoterol 15 Mcg/2 Ml Neb NEB 15 mcg BID-RT [facility]ANE Administration Aspirin 325 mg 09/20/20 09:00 09/22/20 09:27 Aspirin 325 Mg Tab PO 325 mg DAILY [facility]ANE Administration Atorvastatin Calcium 40 mg 09/20/20 21:00 09/22/20 20:43 Atorvastatin Calcium 40 Mg Tab PO 40 mg HS ZANE Administration Carvedilol 12.5 mg 09/21/20 17:00 09/22/20 17:57 Carvedilol 6.25 Mg Tab PO 12.5 mg BID-WM [facility]ANE Administration Cholecalciferol 5,000 units 09/17/20 09:00 09/22/20 09:27 Cholecalciferol 1,000 Units (25 Mcg) Tab PO 5,000 units DAILY [facility] Administration Digoxin 0.125 mg 09/22/20 09:00 09/22/20 09:28 Digoxin 0.125 Mg Tab PO 0.125 mg DAILY [facility] Administration Enoxaparin Sodium 90 mg 09/19/20 09:00 09/22/20 20:44 Enoxaparin Sodium 100 Mg/Ml Syringe SC 90 mg 0900,2100 [facility] Administration Protocol Furosemide 20 mg 09/21/20 14:00 09/22/20 14:56 Furosemide 20 Mg/2 Ml Vial SLOW IVP 20 mg 0600,1400 ZANE Administration Metoprolol Tartrate 5 mg 09/20/20 08:16 09/21/20 03:45 Metoprolol Tartrate 5 Mg/5 Ml Vial IVP 5 mg Q6H PRN Administration To Control Heart Rate Morphine Sulfate 2 mg 09/16/20 15:45 09/18/20 10:43 Morphine 2 Mg/Ml Vial SLOW IVP 2 mg Q1H PRN Administration Moderate Breakthrough Pain Nitroglycerin 0.4 mg 09/16/20 19:15 09/21/20 15:08 Nitroglycerin 0.4 Mg Tab (25 Tab Bottle) SL 0.4 mg Q5MIN PRN Administration Chest Pain Nitroglycerin 0.5 inch 09/21/20 21:00 09/22/20 20:44 Nitroglycerin 2% Ointment 1 Inch/1 Gm Packet TOP 0.5 inch HS [facility]ANE Administration Nystatin 500,000 units 09/17/20 21:00 09/22/20 20:44 Nystatin 500,000 Units/5 Ml Udcup SSW 500,000 units QID [facility] Administration Pantoprazole Sodium 40 mg 09/20/20 09:00 09/22/20 09:27 Pantoprazole 40 Mg Tab PO 40 mg DAILY [facility] Administration Potassium Chloride 20 meq 09/18/20 08:00 09/22/20 09:30 Potassium Chloride 20 Meq Tab PO 20 meq QAM-WM [facility] Administration Pregabalin 100 mg 09/16/20 21:00 09/22/20 20:43 Pregabalin 50 Mg Cap PO 100 mg HS ZNAE Administration Pregabalin 25 mg 09/17/20 09:00 09/22/20 09:31 Pregabalin 25 Mg Cap PO 25 mg QAM [facility]ANE Administration Ramipril 2.5 mg 09/16/20 21:00 09/22/20 20:43 Ramipril 2.5 Mg Cap PO 2.5 mg BID [facility]ANE Administration Sodium Chloride 10 ml 09/16/20 15:45 09/22/20 05:12 Flush - Normal Saline 10 Ml Syringe IVF 10 ml PRN PRN Administration Saline Flush Tamsulosin HCl 0.4 mg 09/17/20 09:00 09/22/20 09:30 Tamsulosin Hcl 0.4 Mg Cap PO 0.4 mg DAILY [facility] Administration Zolpidem Tartrate 10 mg 09/20/20 08:18 09/22/20 20:48 Zolpidem Tartrate 5 Mg Tab PO 10 mg HSPRN PRN Administration Insomnia Hospitalist Exam Vitals: Vital Signs (12 hours) Pulse Resp Pulse Ox 09/23/20 09:30 106 H 16 95 Weight Admit Weight 198 lb Weight 198 lb General Appearance: NAD, awake alert Eye: PERRL, anicteric sclera ENT: normocephalic atraumatic, no oropharyngeal lesions Neck: supple, symmetric, no JVD, no thyromegaly Heart: no murmur, no gallops, no rubs, irregular Respiratory: no wheezes, no rales, no ronchi Gastrointestinal: soft, non-tender, non-distended, normal bowel sounds Extremities: no cyanosis, no clubbing, no edema Skin: normal turgor, no lesions Neurological - other findings: left side weakness Musculoskeletal: normal tone, normal strength Psychiatric: normal affect, normal behavior Hosp A/P (1) S/P lumbar laminectomy Code(s): Z98.890 - OTHER SPECIFIED POSTPROCEDURAL STATES Status: Acute (2) CVA (cerebral vascular accident) Code(s): I63.9 - CEREBRAL INFARCTION, UNSPECIFIED Status: Acute Qualifiers: CVA mechanism: embolism Precerebral and cerebral artery: middle cerebral artery Laterality of affected vessel: right Qualified Code(s): I63.411 - Cerebral infarction due to embolism of right middle cerebral artery (3) Acute on chronic systolic (congestive) heart failure Code(s): I50.23 - ACUTE ON CHRONIC SYSTOLIC (CONGESTIVE) HEART FAILURE Status: Acute (4) Hyponatremia Code(s): E87.1 - HYPO-OSMOLALITY AND HYPONATREMIA Status: Acute (5) Acute renal failure superimposed on stage 3 chronic kidney disease Code(s): N17.9 - ACUTE KIDNEY FAILURE, UNSPECIFIED; N18.30 - CHRONIC KIDNEY DISEASE, STAGE 3 UNSPECIFIED Status: Acute Qualifiers: Chronic kidney disease stage 3 subtype: stage 3a (GFR 45-59) (6) Atrial fibrillation Code(s): I48.91 - UNSPECIFIED ATRIAL FIBRILLATION Status: Chronic Qualifiers: Atrial fibrillation type: paroxysmal Qualified Code(s): I48.0 - Paroxysmal atrial fibrillation (7) CAD (coronary artery disease) Code(s): I25.10 - ATHSCL HEART DISEASE OF [place] CORONARY ARTERY W/O ANG PCTRS Status: Chronic Qualifiers: Coronary Disease-Associated Artery/Lesion type: [place] artery [place] vs. transplanted heart: [place] heart Associated angina: without angina Qualified Code(s): I25.10 - Atherosclerotic heart disease of [place] coronary artery without angina pectoris (8) DM type 2 causing CKD stage 3 Code(s): E11.22 - TYPE 2 DIABETES MELLITUS W DIABETIC CHRONIC KIDNEY DISEASE; N18.30 - CHRONIC KIDNEY DISEASE, STAGE 3 UNSPECIFIED Status: Chronic Qualifiers: Diabetes mellitus half-way insulin use: without half-way use Chronic kidney disease stage 3 subtype: unspecified whether 3a or 3b Qualified Code(s): E11.22 - Type 2 diabetes mellitus with diabetic chronic kidney disease; N18.30 - Chronic kidney disease, stage 3 unspecified (9) HTN (hypertension) Code(s): I10 - ESSENTIAL (PRIMARY) HYPERTENSION Status: Chronic Qualifiers: Hypertension type: essential hypertension Qualified Code(s): I10 - Essential (primary) hypertension (10) Dyslipidemia Code(s): E78.5 - HYPERLIPIDEMIA, UNSPECIFIED Status: Chronic (11) Hypophosphatemia Code(s): E83.39 - OTHER DISORDERS OF PHOSPHORUS METABOLISM Status: Acute (12) Hypomagnesemia Code(s): E83.42 - HYPOMAGNESEMIA Status: Acute - Plan old records reviewed/req, tavera catheter, PT/OT, social director, speech therapy Continue stroke team evaluation, Continue PT OT and speech therapy Medication reviewed and continue provide symptomatic and supportive care Patient will need a rehab Social work needs to work on placement. Patient is currently on goal-directed therapy for systolic CHF, will repeat labs tomorrow
[2020-09-23] MEDS: Furosemide 20 MG/2 ML VIAL SLOW IVP SCH ×2 (15:12→15:28)
[2020-09-23] MEDS: Carvedilol 6.25 MG TAB PO SCH ×2 (15:13→15:37)
[2020-09-23] MEDS: Nystatin 500,000 UNITS/5 ML UDCUP SSW SCH ×4 (15:13→20:28)
[2020-09-23] MEDS: Enoxaparin Sodium 100 MG/ML SYRINGE SC SCH ×2 (15:14→20:27)
[2020-09-23] MEDS: Pregabalin 25 MG CAP PO SCH (15:16)
[2020-09-23] MEDS: Potassium Chloride 20 MEQ TAB PO SCH (15:32)
[2020-09-23] MEDS: Aspirin 325 MG TAB PO SCH (15:33)
[2020-09-23] MEDS: Cholecalciferol 1,000 UNITS (25 MCG) TAB PO SCH (15:34)
[2020-09-23] MEDS: Digoxin 0.125 MG TAB PO SCH (15:35)
[2020-09-23] MEDS: Tamsulosin HCl 0.4 MG CAP PO SCH (15:36)
[2020-09-23 17:06] LABS: Anion Gap 15 mmol/L (10-20); BUN (Urea Nitrogen) 17 mg/dL (8.4-25.7); Calc. Creatinine Clearance 78 mL/min (70-130); Calcium 9.2 mg/dL (7.8-10.44); Carbon Dioxide 34 mmol/L (23-31); Chloride 96 mmol/L (98-107); Glucose 93 mg/dL (83-110); Phosphorus 3.1 mg/dL (2.3-4.7); Potassium 3.2 mmol/L (3.5-5.1); Sodium 142 mmol/L (136-145)
[2020-09-23 17:47] LABS: Magnesium 1.9 mg/dL (1.6-2.6)
[2020-09-23] MEDS: Atorvastatin Calcium 40 MG TAB PO SCH (20:27)
[2020-09-23] MEDS: Nitroglycerin 2% Ointment 1 INCH/1 GM Packet TOP SCH (20:28)
[2020-09-23] MEDS: Pregabalin 50 MG CAP PO SCH (20:29)
[2020-09-23] MEDS: ALPRAZolam 0.5 MG TAB PO PRN (20:30)
[2020-09-23] MEDS: Zolpidem Tartrate 5 MG TAB PO PRN (20:30)
[2020-09-23] MEDS: Metoprolol Tartrate 5 MG/5 ML VIAL IVP PRN (23:41)
[2020-09-24 04:06] LABS: #Eosinphils 0.2 thou/uL (0.0-0.7); #Lymphocytes 1.6 thou/uL (1.20-3.40); #Monocytes 0.9 thou/uL (0.11-0.59); #Neutrophils 4.3 thou/uL (1.40-6.50); %Basophils 0.7 % (0.0-1.0); %Lymphocytes 22.3 % (21.0-51.0); %Neutrophils 61.1 % (42.0-75.0); Hemoglobin 14.6 g/dL (14.0-18.0); Mean Corpuscular HGB CONC 31.7 g/dL (32.0-36.0); Mean Corpuscular Hemoglobin 27.7 pg (27.0-31.0); Mean Corpuscular Volume 87.6 fL (78.0-98.0); Mean Platelet Volume 9.6 fL (7.4-10.4); Platelet Count 167 thou/uL (130-400); RBC Distribution Width 15.6 % (11.5-14.5); Red Blood Cell (RBC) Count 5.28 mill/uL (4.70-6.10)
[2020-09-24 04:59] LABS: ALT (SGPT) 14 U/L (8-55); AST (SGOT) 26 U/L (5-34); Albumin 3.2 g/dL (3.4-4.8); Alkaline Phosphatase 80 U/L (40-110); Anion Gap 15 mmol/L (10-20); BUN (Urea Nitrogen) 19 mg/dL (8.4-25.7); Bilirubin, Total 1.3 mg/dL (0.2-1.2); Calc. Creatinine Clearance 73 mL/min (70-130); Calcium 9.1 mg/dL (7.8-10.44); Carbon Dioxide 33 mmol/L (23-31); Chloride 97 mmol/L (98-107); Globulin 3.8 g/dL (2.4-3.5); Glucose 113 mg/dL (83-110); Magnesium 1.8 mg/dL (1.6-2.6); Phosphorus 3.3 mg/dL (2.3-4.7); Potassium 3.3 mmol/L (3.5-5.1); Sodium 142 mmol/L (136-145)
[2020-09-24] MEDS: Furosemide 20 MG/2 ML VIAL SLOW IVP SCH (05:54)
--- NOTE | 2020-09-24 06:42 | PRG ---
DATE OF SERVICE: 09/23/2020 Mr. Amador is up in the chair and quite interactive. He is much more alert and appropriate than he had been previously. He remains hemiparetic on the left. At this stage, he is safe for discharge to rehab and I discussed this with his son. He can be on anticoagulation as indicated. Job ID: [id number]
[2020-09-24] MEDS: Arformoterol 15 MCG/2 ML NEB NEB SCH ×2 (07:00→19:21)
[2020-09-24] MEDS ORDERED: Potassium Chloride 20 MEQ TAB PO SCH (07:15)
[2020-09-24] MEDS: Nystatin 500,000 UNITS/5 ML UDCUP SSW SCH ×4 (08:57→20:34)
[2020-09-24] MEDS: Enoxaparin Sodium 100 MG/ML SYRINGE SC SCH ×2 (08:59→20:29)
[2020-09-24] MEDS ORDERED: Furosemide 20 MG TAB PO SCH (09:00)
[2020-09-24] MEDS: Aspirin 325 MG TAB PO SCH (09:03)
[2020-09-24] MEDS: Carvedilol 6.25 MG TAB PO SCH ×2 (09:03→16:36)
[2020-09-24] MEDS: Pregabalin 25 MG CAP PO SCH (09:04)
[2020-09-24] MEDS: Magnesium Oxide 400 MG TAB PO SCH (09:04)
[2020-09-24] MEDS: Furosemide 40 MG TAB PO SCH ×2 (09:04→14:19)
[2020-09-24] MEDS: Cholecalciferol 1,000 UNITS (25 MCG) TAB PO SCH (09:04)
[2020-09-24] MEDS: Digoxin 0.125 MG TAB PO SCH (09:04)
[2020-09-24] MEDS: Tamsulosin HCl 0.4 MG CAP PO SCH (09:05)
[2020-09-24] MEDS ORDERED: Diltiazem HCl SR 60 mg Capsule PO SCH (10:30)
--- NOTE | 2020-09-24 10:52 | PRG ---
DATE OF SERVICE: 09/24/2020 SUBJECTIVE: Mr. Amador is doing much better since Wednesday. He is alert and awake. He continues to have stroke-like symptoms, but appears to slowly be improving. Heart rate has also been in the 100 to 110s. OBJECTIVE: VITAL SIGNS: Heart rate 117, blood pressure 115/63, temperature 98.3. Physical exam is deferred. PERTINENT LABORATORY DATA: Hemoglobin 14.6. Creatinine 1.07. PERTINENT CARDIAC MEDICATIONS: 1. Aspirin 325 q.a.m. 2. Atorvastatin 40 daily. 3. Carvedilol 12.5 b.i.d. 4. Digoxin 0.125 one p.o. q.a.m. 5. Lovenox 90 mg subcu q.12. 6. Lasix p.o. 7. Ramipril 2.5 b.i.d. IMPRESSION: 1. Atrial fibrillation. 2. Recent cerebrovascular accident. RECOMMENDATIONS: We will make slight adjustments to his medications for rate control. Heart rate is in the 100s to 110s. He was given metoprolol IV last evening. We will add low-dose Cardizem at 30 mg q.8 hours. Concerned about further decreases in blood pressure on increasing carvedilol. Job ID: [id number]
--- NOTE | 2020-09-24 11:03 | PRG ---
DATE OF SERVICE: 09/24/2020 The patient has remained stable on the stroke unit. He is mobilizing much better and tolerating his soft diet. When arrived this morning on the floor, he is working with PT and walking with his walker. He made all the way down the panchal and back to his room without difficulty. The patient is doing much better overall, feels that he is ready for inpatient rehabilitation. We will continue working on transitioning to that facility. Job ID: [id number]
--- NOTE | 2020-09-24 11:31 | PDOC.HOSPP ---
- Subjective Encounter Date: 09/24/20 Encounter Time: 10:00 Subjective: Patient seen and examined. No new complaints. No overnight events - Objective Vital Signs & Weight: Vital Signs (12 hours) Temp Pulse Resp BP BP Pulse Ox 09/24/20 09:04 98 09/24/20 07:20 98.3 F 98 20 115/63 96 09/24/20 03:57 97.1 F L 102 H 18 122/68 97 Weight Admit Weight 198 lb Weight 198 lb I&O: 09/23/20 09/24/20 09/25/20 06:59 06:59 06:59 Intake Total 900 300 Output Total 2501 800 Balance -2501 100 300 Result Diagrams: 09/24/20 03:46 09/24/20 03:46 Additional Labs: Accuchecks 09/24/20 09/23/20 09/23/20 05:55 16:47 10:44 POC Glucose 103 H 142 H 166 H 09/23/20 09/22/20 09/22/20 05:57 16:48 10:48 POC Glucose 93 129 H 121 H 09/22/20 06:20 POC Glucose 137 H EKG Reviewed by me: Yes Hospitalist ROS - Review of Systems Constitutional: reports: weakness. denies: fever, chills, sweats, malaise, other Respiratory: denies: cough, dry, shortness of breath, hemoptysis, SOB with excertion, pleuritic pain, sputum, wheezing, other Cardiovascular: denies: chest pain, palpitations, orthopnea, paroxysmal noc. dyspnea, edema, light headedness, other Gastrointestinal: denies: nausea, vomiting, abdominal pain, diarrhea, cons tipation, melena, hematochezia, other Genitourinary: denies: dysuria, frequency, incontinence, hematuria, retention, other Musculoskeletal: denies: neck pain, shoulder pain, arm pain, back pain, hand pain, leg pain, foot pain, other - Medication Medications: Active Medications Generic Name Dose Route Start Last Admin Trade Name Freq PRN Reason Stop Dose Admin Acetaminophen 500 mg 09/19/20 15:11 09/19/20 15:27 Acetaminophen 500 Mg Tab PO 500 mg Q4H PRN Administration Headache/Fever or Pain Acetaminophen/Codeine Phosphate 1 tab 09/20/20 08:17 09/22/20 06:24 Acetaminophen/Codeine 30-300mg Tablet PO 1 tab Q6H PRN Administration Moderate Pain (4-6) Alprazolam 0.5 mg 09/20/20 08:18 09/23/20 20:30 Alprazolam 0.5 Mg Tab PO 0.5 mg TIDPRN PRN Administration Anxiety Arformoterol Tartrate 15 mcg 09/17/20 06:30 09/24/20 07:00 Arformoterol 15 Mcg/2 Ml Neb NEB Not Given BID-RT ZANE Aspirin 325 mg 09/20/20 09:00 09/24/20 09:03 Aspirin 325 Mg Tab PO 325 mg DAILY ZANE Administration Atorvastatin Calcium 40 mg 09/20/20 21:00 09/23/20 20:27 Atorvastatin Calcium 40 Mg Tab PO 40 mg HS ZANE Administration Bisacodyl 10 mg 09/20/20 08:20 09/24/20 09:05 Bisacodyl 5 Mg Tab PO 10 mg DAILYPRN PRN Administration Constipation Carvedilol 12.5 mg 09/21/20 17:00 09/24/20 09:03 Carvedilol 6.25 Mg Tab PO 12.5 mg BID-WM ZANE Administration Cholecalciferol 5,000 units 09/17/20 09:00 09/24/20 09:04 Cholecalciferol 1,000 Units (25 Mcg) Tab PO 5,000 units DAILY ZANE Administration Digoxin 0.125 mg 09/22/20 09:00 09/24/20 09:04 Digoxin 0.125 Mg Tab PO 0.125 mg DAILY ZANE Administration Diltiazem HCl 30 mg 09/24/20 11:00 09/24/20 11:25 Diltiazem Hcl 30 Mg Tablet PO 30 mg Q8H ZANE Administration Enoxaparin Sodium 90 mg 09/19/20 09:00 09/24/20 08:59 Enoxaparin Sodium 100 Mg/Ml Syringe SC 90 mg 0900,2100 ZANE Administration Protocol Furosemide 40 mg 09/24/20 09:00 09/24/20 09:04 Furosemide 40 Mg Tab PO 40 mg 0900,1400 ZANE Administration Magnesium Oxide 400 mg 09/24/20 09:00 09/24/20 09:04 Magnesium Oxide 400 Mg Tab PO 400 mg DAILY ZANE Administration Metoprolol Tartrate 5 mg 09/20/20 08:16 09/23/20 23:41 Metoprolol Tartrate 5 Mg/5 Ml Vial IVP 5 mg Q6H PRN Administration To Control Heart Rate Morphine Sulfate 2 mg 09/16/20 15:45 09/18/20 10:43 Morphine 2 Mg/Ml Vial SLOW IVP 2 mg Q1H PRN Administration Moderate Breakthrough Pain Nitroglycerin 0.4 mg 09/16/20 19:15 09/21/20 15:08 Nitroglycerin 0.4 Mg Tab (25 Tab Bottle) SL 0.4 mg Q5MIN PRN Administration Chest Pain Nitroglycerin 0.5 inch 09/21/20 21:00 09/23/20 20:28 Nitroglycerin 2% Ointment 1 Inch/1 Gm Packet TOP 0.5 inch HS ZANE Administration Nystatin 500,000 units 09/17/20 21:00 09/24/20 08:57 Nystatin 500,000 Units/5 Ml Udcup SSW 500,000 units QID ZANE Administration Pantoprazole Sodium 40 mg 09/20/20 09:00 09/24/20 09:04 Pantoprazole 40 Mg Tab PO 40 mg DAILY ZANE Administration Pregabalin 100 mg 09/16/20 21:00 09/23/20 20:29 Pregabalin 50 Mg Cap PO 100 mg HS ZANE Administration Pregabalin 25 mg 09/17/20 09:00 09/24/20 09:04 Pregabalin 25 Mg Cap PO 25 mg QAM ZANE Administration Ramipril 2.5 mg 09/16/20 21:00 09/24/20 09:04 Ramipril 2.5 Mg Cap PO 2.5 mg BID ZANE Administration Senna/Docusate Sodium 2 tab 09/20/20 08:20 09/24/20 09:05 Senokot S 8.6-50 Mg Tab PO 2 tab BIDPRN PRN Administration Constipation Sodium Chloride 10 ml 09/16/20 15:45 09/22/20 05:12 Flush - Normal Saline 10 Ml Syringe IVF 10 ml PRN PRN Administration Saline Flush Tamsulosin HCl 0.4 mg 09/17/20 09:00 09/24/20 09:05 Tamsulosin Hcl 0.4 Mg Cap PO 0.4 mg DAILY ZANE Administration Tramadol HCl 50 mg 09/16/20 15:45 09/23/20 15:18 Tramadol Hcl 50 Mg Tab PO 50 mg Q6H PRN Administration PAIN (1-3) Zolpidem Tartrate 10 mg 09/20/20 08:18 09/23/20 20:30 Zolpidem Tartrate 5 Mg Tab PO 10 mg HSPRN PRN Administration Insomnia Hospitalist Exam Vitals: Vital Signs (12 hours) Temp Pulse Resp BP BP Pulse Ox 09/24/20 09:04 98 09/24/20 07:20 98.3 F 98 20 115/63 96 09/24/20 03:57 97.1 F L 102 H 18 122/68 97 Weight Admit Weight 198 lb Weight 198 lb General Appearance: NAD, awake alert Eye: PERRL, anicteric sclera ENT: normocephalic atraumatic, no oropharyngeal lesions Neck: supple, symmetric, no JVD, no thyromegaly Heart: no murmur, no gallops, no rubs, irregular Respiratory: no wheezes, no rales, no ronchi Gastrointestinal: soft, non-tender, non-distended, normal bowel sounds Extremities: no clubbing, no edema Skin: normal turgor, no lesions Neurological: no new deficit Musculoskeletal: normal tone, normal strength Psychiatric: normal affect, normal behavior Hosp A/P (1) S/P lumbar laminectomy Code(s): Z98.890 - OTHER SPECIFIED POSTPROCEDURAL STATES Status: Acute (2) CVA (cerebral vascular accident) Code(s): I63.9 - CEREBRAL INFARCTION, UNSPECIFIED Status: Acute Qualifiers: CVA mechanism: embolism Precerebral and cerebral artery: middle cerebral artery Laterality of affected vessel: right Qualified Code(s): I63.411 - Cerebral infarction due to embolism of right middle cerebral artery (3) Acute on chronic systolic (congestive) heart failure Code(s): I50.23 - ACUTE ON CHRONIC SYSTOLIC (CONGESTIVE) HEART FAILURE Status: Acute (4) Hyponatremia Code(s): E87.1 - HYPO-OSMOLALITY AND HYPONATREMIA Status: Acute (5) Acute renal failure superimposed on stage 3 chronic kidney disease Code(s): N17.9 - ACUTE KIDNEY FAILURE, UNSPECIFIED; N18.30 - CHRONIC KIDNEY DISEASE, STAGE 3 UNSPECIFIED Status: Acute Qualifiers: Chronic kidney disease stage 3 subtype: stage 3a (GFR 45-59) (6) Atrial fibrillation Code(s): I48.91 - UNSPECIFIED ATRIAL FIBRILLATION Status: Chronic Qualifiers: Atrial fibrillation type: paroxysmal Qualified Code(s): I48.0 - Paroxysmal atrial fibrillation (7) CAD (coronary artery disease) Code(s): I25.10 - ATHSCL HEART DISEASE OF [place] CORONARY ARTERY W/O ANG PCTRS Status: Chronic Qualifiers: Coronary Disease-Associated Artery/Lesion type: [place] artery [place] vs. transplanted heart: [place] heart Associated angina: without angina Qualified Code(s): I25.10 - Atherosclerotic heart disease of [place] coronary artery without angina pectoris (8) DM type 2 causing CKD stage 3 Code(s): E11.22 - TYPE 2 DIABETES MELLITUS W DIABETIC CHRONIC KIDNEY DISEASE; N18.30 - CHRONIC KIDNEY DISEASE, STAGE 3 UNSPECIFIED Status: Chronic Qualifiers: Diabetes mellitus buttermaker helper insulin use: without buttermaker helper use Chronic kidney disease stage 3 subtype: unspecified whether 3a or 3b Qualified Code(s): E11.22 - Type 2 diabetes mellitus with diabetic chronic kidney disease; N18.30 - Chronic kidney disease, stage 3 unspecified (9) HTN (hypertension) Code(s): I10 - ESSENTIAL (PRIMARY) HYPERTENSION Status: Chronic Qualifiers: Hypertension type: essential hypertension Qualified Code(s): I10 - Essential (primary) hypertension (10) Dyslipidemia Code(s): E78.5 - HYPERLIPIDEMIA, UNSPECIFIED Status: Chronic (11) Hypophosphatemia Code(s): E83.39 - OTHER DISORDERS OF PHOSPHORUS METABOLISM Status: Resolved (12) Hypomagnesemia Code(s): E83.42 - HYPOMAGNESEMIA Status: Resolved - Plan old records reviewed/req, plan discussed w/ family, PT/OT, social research assistant, speech therapy Continue stroke team evaluation, Continue PT OT and speech therapy We will replace potassium Discussed with the patient's son bedside Medication reviewed and continue provide symptomatic and supportive care Patient will need a rehab Social work needs to work on placement. Patient is currently on goal-directed therapy for systolic CHF, will repeat labs tomorrow Care delay because of bad weather and placement issue
[2020-09-24] MEDS: Atorvastatin Calcium 40 MG TAB PO SCH (20:29)
[2020-09-24] MEDS: Nitroglycerin 2% Ointment 1 INCH/1 GM Packet TOP SCH (20:34)
[2020-09-24] MEDS: Zolpidem Tartrate 5 MG TAB PO PRN (20:35)
[2020-09-24] MEDS: ALPRAZolam 0.5 MG TAB PO PRN (20:35)
[2020-09-24] MEDS: Pregabalin 50 MG CAP PO SCH (20:35)
[2020-09-25 05:42] LABS: Anion Gap 14 mmol/L (10-20); BUN (Urea Nitrogen) 21 mg/dL (8.4-25.7); Calc. Creatinine Clearance 71 mL/min (70-130); Carbon Dioxide 34 mmol/L (23-31); Chloride 99 mmol/L (98-107); Glucose 111 mg/dL (83-110); Potassium 3.2 mmol/L (3.5-5.1); Sodium 144 mmol/L (136-145)
[2020-09-25] MEDS: Arformoterol 15 MCG/2 ML NEB NEB SCH ×2 (08:11→19:33)
--- NOTE | 2020-09-25 09:25 | PRG ---
DATE OF SERVICE: 09/25/2020 SUBJECTIVE: No overnight events on the floor. The patient is sitting up comfortably this morning. He is more alert and interactive today. He tells me he is feeling well. OBJECTIVE: VITAL SIGNS: Stable. T-max overnight 99.8. He is moving all 4s without difficulty. He still has some left-sided weakness, but appears diffuse 4- out of 5. Still improving. ASSESSMENT AND PLAN: The patient is doing well. Continues to improve with his diet and mobilizing. I feel that he is ready for rehab at any point in time. This has been difficult due to road conditions, but hopefully we can transition to rehab tomorrow. Job ID: [id number]
--- NOTE | 2020-09-25 11:09 | PRG ---
DATE OF SERVICE: 09/25/2020 SUBJECTIVE: Mr. Amador is currently sleeping. The history is obtained from his son, who is in the room. OBJECTIVE: GENERAL: Mr. Amador had an uneventful evening. VITAL SIGNS: Heart rate 100s, temperature 97.9, and blood pressure 127/61. PHYSICAL EXAMINATION: Physical exam deferred. PERTINENT LABORATORY DATA: Hemoglobin 14.6, hematocrit 46.2, platelet count 167. IMPRESSION: 1. Atrial fibrillation. 2. Recent cerebrovascular accident. RECOMMENDATIONS: 1. Increase calcium channel blockade from 30 mg q.8 hours to 60 mg q.8 hours. 2. Continue beta-edson therapy. 3. Rehab. 4. Anticoagulation therapy restarted per Neurosurgery. Job ID: [id number]
[2020-09-25] MEDS: Enoxaparin Sodium 100 MG/ML SYRINGE SC SCH ×2 (11:15→20:18)
[2020-09-25] MEDS: Nystatin 500,000 UNITS/5 ML UDCUP SSW SCH ×4 (11:15→20:19)
[2020-09-25] MEDS: Furosemide 40 MG TAB PO SCH ×2 (11:16→13:49)
[2020-09-25] MEDS: Digoxin 0.125 MG TAB PO SCH (11:16)
[2020-09-25] MEDS: Cholecalciferol 1,000 UNITS (25 MCG) TAB PO SCH (11:16)
[2020-09-25] MEDS: Pregabalin 25 MG CAP PO SCH (11:17)
[2020-09-25] MEDS: Magnesium Oxide 400 MG TAB PO SCH (11:18)
[2020-09-25] MEDS: Tamsulosin HCl 0.4 MG CAP PO SCH (11:18)
[2020-09-25] MEDS: HumaLOG 300 UNITS/3 ML VIAL SC PRN (11:21)
[2020-09-25] MEDS ORDERED: Potassium Chloride 20 MEQ TAB PO SCH (11:30)
[2020-09-25] MEDS ORDERED: Aspirin 325 MG TAB ONE (11:33)
[2020-09-25] MEDS: Carvedilol 6.25 MG TAB PO SCH ×2 (11:36→17:38)
[2020-09-25] MEDS: Aspirin 325 MG TAB PO SCH (11:37)
--- NOTE | 2020-09-25 14:56 | EKG ---
Test Reason : S/P LUMBAR LAMINECTO Blood Pressure : / mmHG Vent. Rate : 114 BPM Atrial Rate : 131 BPM P-R Int : 000 ms QRS Dur : 146 ms QT Int : 386 ms P-R-T Axes : 000 -61 034 degrees QTc Int : 532 ms Atrial fibrillation with rapid ventricular response Right bundle branch block Left anterior fascicular block Bifascicular block Septal infarct , age undetermined Lateral infarct , age undetermined Inferior infarct , age undetermined Abnormal ECG When compared with ECG of 11-SEP-2020 12:58, (Unconfirmed) Septal infarct is now Present Lateral infarct is now Present No significant change was found Confirmed by DON VILLAR (2) on 09/25/2020 2:55:53 PM Referred By: TIBURCIO Confirmed By:DON VILLAR
--- NOTE | 2020-09-25 15:23 | EKG ---
Test Reason : STAT Blood Pressure : / mmHG Vent. Rate : 111 BPM Atrial Rate : 117 BPM P-R Int : 000 ms QRS Dur : 136 ms QT Int : 362 ms P-R-T Axes : 000 -50 065 degrees QTc Int : 492 ms Atrial fibrillation with rapid ventricular response with premature ventricular or aberrantly conducte d complexes Right bundle branch block Left anterior fascicular block Bifascicular block Abnormal ECG When compared with ECG of 16-SEP-2020 12:04, (Unconfirmed) Criteria for Septal infarct are no longer Present Criteria for Lateral infarct are no longer Present No significant change was found Confirmed by DON VILLAR (2) on 09/25/2020 3:22:31 PM Referred By: PRESTON Confirmed By:DON VILLAR
[2020-09-25] MEDS: Atorvastatin Calcium 40 MG TAB PO SCH (20:18)
[2020-09-25] MEDS: Pregabalin 50 MG CAP PO SCH (20:19)
[2020-09-25] MEDS: Nitroglycerin 2% Ointment 1 INCH/1 GM Packet TOP SCH (20:19)
[2020-09-25] MEDS: Zolpidem Tartrate 5 MG TAB PO PRN (20:20)
[2020-09-25] MEDS: ALPRAZolam 0.5 MG TAB PO PRN (20:20)
--- NOTE | 2020-09-25 21:07 | PDOC.HOSPP ---
- Subjective Encounter Date: 09/25/20 Subjective: Feels well does not report any distress, his son is at the bedside. - Objective Vital Signs & Weight: Vital Signs (12 hours) Temp Pulse Pulse Pulse Resp BP BP 09/25/20 19:33 82 16 09/25/20 19:10 98.1 F 62 18 09/25/20 17:38 125/63 09/25/20 15:26 97.2 F L 72 20 09/25/20 12:00 97.4 F L 102 H 20 09/25/20 11:36 125/63 09/25/20 11:16 109 H 09/25/20 11:15 125/63 09/25/20 10:28 87 87 125/63 BP BP BP Pulse Ox 09/25/20 19:33 93 L 09/25/20 19:10 124/56 L 95 09/25/20 17:38 09/25/20 15:26 113/56 L 95 09/25/20 12:00 131/63 95 09/25/20 11:36 09/25/20 11:16 09/25/20 11:15 09/25/20 10:28 125/63 Weight Admit Weight 198 lb Weight 198 lb I&O: 09/24/20 09/25/20 09/26/20 06:59 06:59 06:59 Intake Total 900 900 420 Output Total 800 750 Balance 100 150 420 Result Diagrams: 09/24/20 03:46 09/25/20 05:03 Additional Labs: Accuchecks 09/25/20 09/25/20 09/25/20 20:14 16:47 10:49 POC Glucose 107 H 112 H 157 H 09/25/20 09/24/20 05:55 20:29 POC Glucose 107 H 138 H Hospitalist ROS - Medication Medications: Active Medications Generic Name Dose Route Start Last Admin Trade Name Freq PRN Reason Stop Dose Admin Acetaminophen 500 mg 09/19/20 15:11 09/19/20 15:27 Acetaminophen 500 Mg Tab PO 500 mg Q4H PRN Administration Headache/Fever or Pain Acetaminophen/Codeine Phosphate 1 tab 09/20/20 08:17 09/22/20 06:24 Acetaminophen/Codeine 30-300mg Tablet PO 1 tab Q6H PRN Administration Moderate Pain (4-6) Alprazolam 0.5 mg 09/20/20 08:18 09/25/20 20:20 Alprazolam 0.5 Mg Tab PO 0.5 mg TIDPRN PRN Administration Anxiety Arformoterol Tartrate 15 mcg 09/17/20 06:30 09/25/20 19:33 Arformoterol 15 Mcg/2 Ml Neb NEB 15 mcg BID-RT ZANE Administration Aspirin 325 mg 09/20/20 09:00 09/25/20 11:37 Aspirin 325 Mg Tab PO 325 mg DAILY ZANE Administration Atorvastatin Calcium 40 mg 09/20/20 21:00 09/25/20 20:18 Atorvastatin Calcium 40 Mg Tab PO 40 mg HS ZANE Administration Bisacodyl 10 mg 09/20/20 08:20 09/24/20 09:05 Bisacodyl 5 Mg Tab PO 10 mg DAILYPRN PRN Administration Constipation Carvedilol 12.5 mg 09/21/20 17:00 09/25/20 17:38 Carvedilol 6.25 Mg Tab PO 12.5 mg BID-WM ZANE Administration Cholecalciferol 5,000 units 09/17/20 09:00 09/25/20 11:16 Cholecalciferol 1,000 Units (25 Mcg) Tab PO 5,000 units DAILY ZANE Administration Digoxin 0.125 mg 09/22/20 09:00 09/25/20 11:16 Digoxin 0.125 Mg Tab PO 0.125 mg DAILY ZANE Administration Diltiazem HCl 60 mg 09/25/20 12:00 09/25/20 20:18 Diltiazem Hcl 30 Mg Tablet PO 60 mg 0400,1200,2000 ZANE Administration Enoxaparin Sodium 90 mg 09/19/20 09:00 09/25/20 20:18 Enoxaparin Sodium 100 Mg/Ml Syringe SC 90 mg 0900,2100 ZANE Administration Protocol Furosemide 40 mg 09/24/20 09:00 09/25/20 13:49 Furosemide 40 Mg Tab PO 40 mg 0900,1400 ZANE Administration Insulin Human Lispro 0 units 09/21/20 10:56 09/25/20 11:21 Humalog 300 Units/3 Ml Vial SC 2 unit .MILD SLIDING SCALE PRN Administration Mild Correctional Scale Magnesium Oxide 400 mg 09/24/20 09:00 09/25/20 11:18 Magnesium Oxide 400 Mg Tab PO 400 mg DAILY ZANE Administration Metoprolol Tartrate 5 mg 09/20/20 08:16 09/23/20 23:41 Metoprolol Tartrate 5 Mg/5 Ml Vial IVP 5 mg Q6H PRN Administration To Control Heart Rate Morphine Sulfate 2 mg 09/16/20 15:45 09/18/20 10:43 Morphine 2 Mg/Ml Vial SLOW IVP 2 mg Q1H PRN Administration Moderate Breakthrough Pain Nitroglycerin 0.4 mg 09/16/20 19:15 09/21/20 15:08 Nitroglycerin 0.4 Mg Tab (25 Tab Bottle) SL 0.4 mg Q5MIN PRN Administration Chest Pain Nitroglycerin 0.5 inch 09/21/20 21:00 09/25/20 20:19 Nitroglycerin 2% Ointment 1 Inch/1 Gm Packet TOP 0.5 inch HS ZANE Administration Nystatin 500,000 units 09/17/20 21:00 09/25/20 20:19 Nystatin 500,000 Units/5 Ml Udcup SSW 500,000 units QID ZANE Administration Pantoprazole Sodium 40 mg 09/20/20 09:00 09/25/20 12:03 Pantoprazole 40 Mg Tab PO 40 mg DAILY ZANE Administration Pregabalin 100 mg 09/16/20 21:00 09/25/20 20:19 Pregabalin 50 Mg Cap PO 100 mg HS ZANE Administration Pregabalin 25 mg 09/17/20 09:00 09/25/20 11:17 Pregabalin 25 Mg Cap PO 25 mg QAM ZANE Administration Ramipril 2.5 mg 09/16/20 21:00 09/25/20 20:20 Ramipril 2.5 Mg Cap PO 2.5 mg BID ZANE Administration Senna/Docusate Sodium 2 tab 09/20/20 08:20 09/24/20 09:05 Senokot S 8.6-50 Mg Tab PO 2 tab BIDPRN PRN Administration Constipation Sodium Chloride 10 ml 09/16/20 15:45 09/22/20 05:12 Flush - Normal Saline 10 Ml Syringe IVF 10 ml PRN PRN Administration Saline Flush Tamsulosin HCl 0.4 mg 09/17/20 09:00 09/25/20 11:18 Tamsulosin Hcl 0.4 Mg Cap PO 0.4 mg DAILY ZANE Administration Tramadol HCl 50 mg 09/16/20 15:45 09/23/20 15:18 Tramadol Hcl 50 Mg Tab PO 50 mg Q6H PRN Administration PAIN (1-3) Zolpidem Tartrate 10 mg 09/20/20 08:18 09/25/20 20:20 Zolpidem Tartrate 5 Mg Tab PO 10 mg HSPRN PRN Administration Insomnia Hospitalist Exam Vitals: Vital Signs (12 hours) Temp Pulse Pulse Pulse Resp BP BP 09/25/20 19:33 82 16 09/25/20 19:10 98.1 F 62 18 09/25/20 17:38 125/63 09/25/20 15:26 97.2 F L 72 20 09/25/20 12:00 97.4 F L 102 H 20 09/25/20 11:36 125/63 09/25/20 11:16 109 H 09/25/20 11:15 125/63 09/25/20 10:28 87 87 125/63 BP BP BP Pulse Ox 09/25/20 19:33 93 L 09/25/20 19:10 124/56 L 95 09/25/20 17:38 09/25/20 15:26 113/56 L 95 09/25/20 12:00 131/63 95 09/25/20 11:36 09/25/20 11:16 09/25/20 11:15 09/25/20 10:28 125/63 Weight Admit Weight 198 lb Weight 198 lb General Appearance: NAD Eye: PERRL ENT: normocephalic atraumatic, no oropharyngeal lesions Neck: supple, symmetric, no JVD Heart: RRR, no murmur, no gallops Respiratory: CTAB, no wheezes, no rales Gastrointestinal: soft, non-tender Extremities: no cyanosis, no clubbing Skin: normal turgor, no lesions Neurological: facial droop Neurological - other findings: His motor function in the left side is almost ba ck to normal Hosp A/P (1) CVA (cerebral vascular accident) Code(s): I63.9 - CEREBRAL INFARCTION, UNSPECIFIED Status: Acute Qualifiers: CVA mechanism: embolism Precerebral and cerebral artery: middle cerebral artery Laterality of affected vessel: right Qualified Code(s): I63.411 - Cerebral infarction due to embolism of right middle cerebral artery (2) S/P lumbar laminectomy Code(s): Z98.890 - OTHER SPECIFIED POSTPROCEDURAL STATES Status: Acute (3) Atrial fibrillation Code(s): I48.91 - UNSPECIFIED ATRIAL FIBRILLATION Status: Chronic Qualifiers: Atrial fibrillation type: paroxysmal Qualified Code(s): I48.0 - Paroxysmal atrial fibrillation (4) CAD (coronary artery disease) Code(s): I25.10 - ATHSCL HEART DISEASE OF [place] CORONARY ARTERY W/O ANG PCTRS Status: Chronic Qualifiers: Coronary Disease-Associated Artery/Lesion type: [place] artery [place] vs. transplanted heart: [place] heart Associated angina: without angina Qualified Code(s): I25.10 - Atherosclerotic heart disease of [place] coronary artery without angina pectoris (5) CHF (congestive heart failure) Code(s): I50.9 - HEART FAILURE, UNSPECIFIED Status: Chronic Qualifiers: Heart failure type: systolic Heart failure chronicity: unspecified Qualified Code(s): I50.20 - Unspecified systolic (congestive) heart failure - Plan Plan for today 09/25 He continues to do well and his cardiac medication has been adjusted by cardiology, I will confer with neurosurgery when I can start him on Eliquis. We will recheck his labs in the morning.
[2020-09-25 23:10] LABS: Anion Gap 18 mmol/L (10-20); Carbon Dioxide 30 mmol/L (23-31); Chloride 100 mmol/L (98-107); Magnesium 1.9 mg/dL (1.6-2.6); Potassium 3.8 mmol/L (3.5-5.1); Sodium 144 mmol/L (136-145)
[2020-09-26 05:39] LABS: Anion Gap 18 mmol/L (10-20); BUN (Urea Nitrogen) 23 mg/dL (8.4-25.7); Calc. Creatinine Clearance 64 mL/min (70-130); Calcium 9.2 mg/dL (7.8-10.44); Carbon Dioxide 28 mmol/L (23-31); Chloride 101 mmol/L (98-107); Glucose 91 mg/dL (83-110); Sodium 143 mmol/L (136-145)
[2020-09-26 05:47] LABS: #Basophils 0.1 thou/uL (0.0-0.2); #Eosinphils 0.3 thou/uL (0.0-0.7); #Monocytes 0.8 thou/uL (0.11-0.59); #Neutrophils 4.6 thou/uL (1.40-6.50); %Basophils 1.1 % (0.0-1.0); %Eosinophils 4.3 % (0.0-10.0); %Lymphocytes 25.8 % (21.0-51.0); %Monocytes 9.6 % (0.0-10.0); %Neutrophils 59.2 % (42.0-75.0); Hemoglobin 15.3 g/dL (14.0-18.0); Mean Corpuscular HGB CONC 31.8 g/dL (32.0-36.0); Mean Corpuscular Hemoglobin 27.8 pg (27.0-31.0); Mean Corpuscular Volume 87.5 fL (78.0-98.0); Mean Platelet Volume 10.7 fL (7.4-10.4); Platelet Count 154 thou/uL (130-400); RBC Distribution Width 15.9 % (11.5-14.5); White Blood Cell (WBC) Count 7.8 thou/uL (4.8-10.8)
--- NOTE | 2020-09-26 06:58 | PRG ---
DATE OF SERVICE: 09/26/2020 I visited the patient at the bedside in the stroke unit. He is currently resting on my arrival. I spoke with the son who reports that the patient continues to mobilize better and seems to be tolerating more of diet. He did have an episode of bradycardia yesterday evening where his heart rate dropped into the 20s for a short period of time. He is being followed by Cardiology, Dr. Leiva. The patient continues mobilized appropriately with the assistance of PT and OT as well as advance his diet with speech. He has had his hypertensive medications recently adjusted by Cardiology with increase in his calcium channel edson and continuation of his beta-edson therapy. He had an episode of bradycardia overnight. We will appreciate any recommendations regarding this in their point of view. Otherwise, the patient is doing well and can likely transition to rehab in the near future. Job ID: [id number]
[2020-09-26] MEDS: Arformoterol 15 MCG/2 ML NEB NEB SCH ×2 (08:46→18:27)
[2020-09-26] MEDS: Tamsulosin HCl 0.4 MG CAP PO SCH (10:24)
[2020-09-26] MEDS: Cholecalciferol 1,000 UNITS (25 MCG) TAB PO SCH (10:24)
[2020-09-26] MEDS: Pregabalin 25 MG CAP PO SCH (10:24)
[2020-09-26] MEDS: Aspirin 325 MG TAB PO SCH (10:26)
[2020-09-26] MEDS: Digoxin 0.125 MG TAB PO SCH (10:26)
[2020-09-26] MEDS: Carvedilol 6.25 MG TAB PO SCH ×2 (10:26→16:28)
[2020-09-26] MEDS: Nystatin 500,000 UNITS/5 ML UDCUP SSW SCH ×4 (10:27→22:36)
[2020-09-26] MEDS: Furosemide 40 MG TAB PO SCH ×2 (10:27→14:38)
[2020-09-26] MEDS: Magnesium Oxide 400 MG TAB PO SCH (10:27)
[2020-09-26] MEDS: Enoxaparin Sodium 100 MG/ML SYRINGE SC SCH (10:27)
--- NOTE | 2020-09-26 12:21 | PDOC.HOSPP ---
- Subjective Encounter Date: 09/26/20 Subjective: Well-appearing, son is at the bedside. - Objective Vital Signs & Weight: Vital Signs (12 hours) Temp Pulse Resp BP BP BP Pulse Ox 09/26/20 11:55 97.2 F L 81 16 103/48 L 95 09/26/20 10:38 97.2 F L 72 15 107/57 L 94 L 09/26/20 10:35 94 L 09/26/20 03:25 97.3 F L 66 18 121/62 98 09/26/20 01:12 97.5 F L 74 18 129/59 L 97 Weight Admit Weight 198 lb Weight 198 lb I&O: 09/25/20 09/26/20 09/27/20 06:59 06:59 06:59 Intake Total 900 570 Output Total 750 650 Balance 150 -80 Result Diagrams: 09/26/20 04:42 09/26/20 04:42 Additional Labs: Accuchecks 09/26/20 09/25/20 09/25/20 05:53 20:14 16:47 POC Glucose 108 H 107 H 112 H Hospitalist ROS - Medication Medications: Active Medications Generic Name Dose Route Start Last Admin Trade Name Freq PRN Reason Stop Dose Admin Acetaminophen 500 mg 09/19/20 15:11 09/19/20 15:27 Acetaminophen 500 Mg Tab PO 500 mg Q4H PRN Administration Headache/Fever or Pain Acetaminophen/Codeine Phosphate 1 tab 09/20/20 08:17 09/22/20 06:24 Acetaminophen/Codeine 30-300mg Tablet PO 1 tab Q6H PRN Administration Moderate Pain (4-6) Alprazolam 0.5 mg 09/20/20 08:18 09/25/20 20:20 Alprazolam 0.5 Mg Tab PO 0.5 mg TIDPRN PRN Administration Anxiety Arformoterol Tartrate 15 mcg 09/17/20 06:30 09/26/20 08:46 Arformoterol 15 Mcg/2 Ml Neb NEB 15 mcg BID-RT ZANE Administration Aspirin 325 mg 09/20/20 09:00 09/26/20 10:26 Aspirin 325 Mg Tab PO 325 mg DAILY ZANE Administration Atorvastatin Calcium 40 mg 09/20/20 21:00 09/25/20 20:18 Atorvastatin Calcium 40 Mg Tab PO 40 mg HS ZANE Administration Bisacodyl 10 mg 09/20/20 08:20 09/24/20 09:05 Bisacodyl 5 Mg Tab PO 10 mg DAILYPRN PRN Administration Constipation Carvedilol 12.5 mg 09/21/20 17:00 09/26/20 10:26 Carvedilol 6.25 Mg Tab PO 12.5 mg BID-WM ZANE Administration Cholecalciferol 5,000 units 09/17/20 09:00 09/26/20 10:24 Cholecalciferol 1,000 Units (25 Mcg) Tab PO 5,000 units DAILY ZANE Administration Digoxin 0.125 mg 09/22/20 09:00 09/26/20 10:26 Digoxin 0.125 Mg Tab PO 0.125 mg DAILY ZANE Administration Diltiazem HCl 60 mg 09/25/20 12:00 09/26/20 03:55 Diltiazem Hcl 30 Mg Tablet PO 09/26/20 20:00 Not Given 0400,1200,2000 [facility] Furosemide 40 mg 09/24/20 09:00 09/26/20 10:27 Furosemide 40 Mg Tab PO 40 mg 0900,1400 ZANE Administration Insulin Human Lispro 0 units 09/21/20 10:56 09/25/20 11:21 Humalog 300 Units/3 Ml Vial SC 2 unit .MILD SLIDING SCALE PRN Administration Mild Correctional Scale Magnesium Oxide 400 mg 09/24/20 09:00 09/26/20 10:27 Magnesium Oxide 400 Mg Tab PO 400 mg DAILY ZANE Administration Metoprolol Tartrate 5 mg 09/20/20 08:16 09/23/20 23:41 Metoprolol Tartrate 5 Mg/5 Ml Vial IVP 5 mg Q6H PRN Administration To Control Heart Rate Morphine Sulfate 2 mg 09/16/20 15:45 09/18/20 10:43 Morphine 2 Mg/Ml Vial SLOW IVP 2 mg Q1H PRN Administration Moderate Breakthrough Pain Nitroglycerin 0.4 mg 09/16/20 19:15 09/21/20 15:08 Nitroglycerin 0.4 Mg Tab (25 Tab Bottle) SL 0.4 mg Q5MIN PRN Administration Chest Pain Nitroglycerin 0.5 inch 09/21/20 21:00 09/25/20 20:19 Nitroglycerin 2% Ointment 1 Inch/1 Gm Packet TOP 0.5 inch HS [facility] Administration Nystatin 500,000 units 09/17/20 21:00 09/26/20 10:27 Nystatin 500,000 Units/5 Ml Udcup SSW 500,000 units QID ZANE Administration Pantoprazole Sodium 40 mg 09/20/20 09:00 09/26/20 10:27 Pantoprazole 40 Mg Tab PO 40 mg DAILY ZANE Administration Pregabalin 100 mg 09/16/20 21:00 09/25/20 20:19 Pregabalin 50 Mg Cap PO 100 mg HS ZANE Administration Pregabalin 25 mg 09/17/20 09:00 09/26/20 10:24 Pregabalin 25 Mg Cap PO 25 mg QAM ZANE Administration Ramipril 2.5 mg 09/16/20 21:00 09/26/20 10:25 Ramipril 2.5 Mg Cap PO 2.5 mg BID ZANE Administration Senna/Docusate Sodium 2 tab 09/20/20 08:20 09/24/20 09:05 Senokot S 8.6-50 Mg Tab PO 2 tab BIDPRN PRN Administration Constipation Sodium Chloride 10 ml 09/16/20 15:45 09/22/20 05:12 Flush - Normal Saline 10 Ml Syringe IVF 10 ml PRN PRN Administration Saline Flush Tamsulosin HCl 0.4 mg 09/17/20 09:00 09/26/20 10:24 Tamsulosin Hcl 0.4 Mg Cap PO 0.4 mg DAILY ZANE Administration Tramadol HCl 50 mg 09/16/20 15:45 09/23/20 15:18 Tramadol Hcl 50 Mg Tab PO 50 mg Q6H PRN Administration PAIN (1-3) Zolpidem Tartrate 10 mg 09/20/20 08:18 09/25/20 20:20 Zolpidem Tartrate 5 Mg Tab PO 10 mg HSPRN PRN Administration Insomnia Hospitalist Exam Vitals: Vital Signs (12 hours) Temp Pulse Resp BP BP BP Pulse Ox 09/26/20 11:55 97.2 F L 81 16 103/48 L 95 09/26/20 10:38 97.2 F L 72 15 107/57 L 94 L 09/26/20 10:35 94 L 09/26/20 03:25 97.3 F L 66 18 121/62 98 09/26/20 01:12 97.5 F L 74 18 129/59 L 97 Weight Admit Weight 198 lb Weight 198 lb General Appearance: NAD, awake alert Eye: PERRL, anicteric sclera ENT: normocephalic atraumatic Neck: supple, symmetric, no JVD Heart: RRR, no murmur, no gallops, no rubs Respiratory: CTAB, no wheezes, no rales, no ronchi Gastrointestinal: soft, non-tender, non-distended Hosp A/P (1) CVA (cerebral vascular accident) Code(s): I63.9 - CEREBRAL INFARCTION, UNSPECIFIED Status: Acute Qualifiers: CVA mechanism: embolism Precerebral and cerebral artery: middle cerebral artery Laterality of affected vessel: right Qualified Code(s): I63.411 - Cerebral infarction due to embolism of right middle cerebral artery (2) S/P lumbar laminectomy Code(s): Z98.890 - OTHER SPECIFIED POSTPROCEDURAL STATES Status: Acute (3) Atrial fibrillation Code(s): I48.91 - UNSPECIFIED ATRIAL FIBRILLATION Status: Chronic Qualifiers: Atrial fibrillation type: paroxysmal Qualified Code(s): I48.0 - Paroxysmal atrial fibrillation (4) CAD (coronary artery disease) Code(s): I25.10 - ATHSCL HEART DISEASE OF [place] CORONARY ARTERY W/O ANG PCTRS Status: Chronic Qualifiers: Coronary Disease-Associated Artery/Lesion type: [place] artery [place] vs. transplanted heart: [place] heart Associated angina: without angina Qualified Code(s): I25.10 - Atherosclerotic heart disease of [place] coronary artery without angina pectoris (5) CHF (congestive heart failure) Code(s): I50.9 - HEART FAILURE, UNSPECIFIED Status: Chronic Qualifiers: Heart failure type: systolic Heart failure chronicity: unspecified Qualified Code(s): I50.20 - Unspecified systolic (congestive) heart failure - Plan Plan for today 09/25 He continues to do well and his cardiac medication has been adjusted by cardiology, I will confer with neurosurgery when I can start him on Eliquis. We will recheck his labs in the morning Plan for today 09/26 Cardiac--- patient did have a 2.5-second pause yesterday around 11 PM, I did confer with cardiology and this pause in the setting of A. fib is not worrisome, patient will be transitioned from Cardizem 60 mg every 8 hours to Cardizem CD 120 mg once a day, this will start tomorrow. Patient is on Lovenox subcutaneously, I did confer with the neurosurgery nurse practitioner and they cleared him to be transitioned to Eliquis, so I will start him on Eliquis 10 mg twice daily for a week then 5 mg twice daily, his Lovenox will be stopped today. I did reconsult case management for placement. We will give him a lab holiday tomorrow.
--- NOTE | 2020-09-26 13:49 | PRG ---
DATE OF SERVICE: 09/26/2020 SUBJECTIVE: Mr. Amador is improving. He was seen walking in the panchal with assistance. His heart rate has been better controlled on Cardizem. He did have a 2.7-second pause. It was asymptomatic. This is well within limits of atrial fibrillation. PHYSICAL EXAMINATION: VITAL SIGNS: Blood pressure 103/48, pulse 81, and temperature 97.2. LUNGS: Clear to auscultation. HEART: Irregularly irregular. ABDOMEN: Soft, nontender, nondistended. IMPRESSION: 1. Recent cerebrovascular accident. 2. Atrial fibrillation. RECOMMENDATIONS: Discussed the case with the hospitalist in addition to Mr. Amador's son. We would change the short-acting Cardizem to long-acting p.o. Cardizem at 120 mg q.a.m. Continue beta-edson therapy. Anticoagulation therapy per Neurosurgery. His heart rate appears to be stable for discharge. Job ID: [id number]
[2020-09-26] MEDS: HumaLOG 300 UNITS/3 ML VIAL SC PRN (14:39)
[2020-09-26] MEDS: Apixaban 5 MG TAB PO SCH (22:32)
[2020-09-26] MEDS: ALPRAZolam 0.5 MG TAB PO PRN (22:32)
[2020-09-26] MEDS: Atorvastatin Calcium 40 MG TAB PO SCH (22:33)
[2020-09-26] MEDS: Pregabalin 50 MG CAP PO SCH (22:33)
[2020-09-26] MEDS: Nitroglycerin 2% Ointment 1 INCH/1 GM Packet TOP SCH (22:35)
[2020-09-26] MEDS: Zolpidem Tartrate 5 MG TAB PO PRN (22:35)
[2020-09-27] MEDS: Arformoterol 15 MCG/2 ML NEB NEB SCH ×2 (06:53→22:29)
[2020-09-27] MEDS: Cholecalciferol 1,000 UNITS (25 MCG) TAB PO SCH (08:23)
[2020-09-27] MEDS: Nystatin 500,000 UNITS/5 ML UDCUP SSW SCH ×4 (08:23→21:31)
[2020-09-27] MEDS: Pregabalin 25 MG CAP PO SCH (08:24)
[2020-09-27] MEDS: Magnesium Oxide 400 MG TAB PO SCH (08:25)
[2020-09-27] MEDS: Tamsulosin HCl 0.4 MG CAP PO SCH (08:25)
[2020-09-27] MEDS: Aspirin 325 MG TAB PO SCH (08:25)
[2020-09-27] MEDS: Digoxin 0.125 MG TAB PO SCH (08:25)
[2020-09-27] MEDS: Apixaban 5 MG TAB PO SCH ×2 (08:26→21:30)
[2020-09-27] MEDS: Furosemide 40 MG TAB PO SCH ×2 (08:26→15:35)
[2020-09-27] MEDS: Carvedilol 6.25 MG TAB PO SCH ×3 (08:26→18:18)
--- NOTE | 2020-09-27 11:00 | DIS ---
DATE OF ADMISSION: 09/17/2020 DATE OF DISCHARGE: 09/30/20 Procedure: L4-L5 laminectomy HOSPITAL COURSE: The patient is a 75-year-old male, recently evaluated in office for progressive back and claudicatory leg pain. He underwent L4-L5 laminectomy on 09/16/2020. Following the surgery, he was transitioned to the Med/Surg floor, where his pain was well controlled with p.o. medications, he is tolerating a regular diet. He had some issues with urinary retention. Therefore, a Marie catheter was placed. We planned to leave a Marie catheter in place and have him see Urology on an outpatient basis. Just before he was ready for discharge, the patient developed some sudden left-sided weakness. He was evaluated with a noncontrast CT head and MRI and found to have a new large right MCA infarct. He was transitioned to the stroke team and treated with anticoagulation. He was also visited by the stroke team including speech therapy, PT, OT, Medicine, and Cardiology. During his admission on the stroke floor, his strength improved significantly on the left side. and he was mobilizing with the assistance of PT. He was tolerating a soft diet. He improved significantly, but will benefit from inpatient rehabilitation. He did have some arrythmia issues such as episodes of bradycardia and non sustained VT. This seemed to improve with medication adjustments by cardiology. Pt was ordered a LifeVest. I have discussed the plan with the family. We will go ahead and transition to inpatient rehab after LifeVest is fitted. We will follow up with the patient in 2 weeks with my office as well as cardiology as recommended. Maire catheter remains in place and they will do void trial while in rehab. Job ID: [id number] MTDD
--- NOTE | 2020-09-27 11:37 | PRG ---
DATE OF SERVICE: 09/27/2020 SUBJECTIVE: Mr. Amador is doing well. He was seen ambulating in the halls twice today. No current complaints. He did have a brief run of nonsustained VT today. After reviewing his records, it appears he had an echo done over the weekend with LVEF 15% to 20%. I discussed the case with his , Terrence. She states he has had a weak heart, but unknown how weak in the past. He has been seen and evaluated by Dr. Nino Braga. I have reached out to Dr. Nino Braga and have left a message. OBJECTIVE: VITAL SIGNS: Blood pressure 111/58, pulse 65, temperature 97.6. LUNGS: Clear to auscultation. HEART: Irregularly irregular. ABDOMEN: Soft, nontender, nondistended. EXTREMITIES: No edema. PERTINENT LABORATORY DATA: Hemoglobin 15.3, hematocrit 48.1. Creatinine 1.22. IMPRESSION: 1. Cardiomyopathy of unknown etiology. 2. Nonsustained VT. 3. Atrial fibrillation. 4. Recent CVA. RECOMMENDATIONS: We will check a magnesium and calcium level. His magnesium level was low on admission. At this point, given low LVEF with a nonsustained VT, would recommend LifeVest. I discussed the risks and benefits of proceeding with LifeVest with the family. They would like to proceed. May recommend repeating his echo in a month to see if his LVEF remains low or if his decrease in LVEF was from recent insult. The LifeVest may not be available today. I did discuss the risks and benefits of being transferred to rehab and having the LifeVest placed in rehab in the next 24 to 48 hours. They do not want to lose their bed and would like to proceed if needed. Job ID: [id number]
--- NOTE | 2020-09-27 16:13 | PDOC.HOSPP ---
- Subjective Encounter Date: 09/27/20 Subjective: Well-appearing in no acute distress - Objective Vital Signs & Weight: Vital Signs (12 hours) Temp Pulse Resp BP BP BP BP 09/27/20 16:00 98.5 F 79 17 09/27/20 11:44 77 127/60 09/27/20 11:18 97.5 F L 77 20 127/60 09/27/20 10:47 125/63 09/27/20 10:46 125/63 09/27/20 10:10 116/70 116/57 L 09/27/20 08:25 65 09/27/20 08:00 09/27/20 07:25 97.6 F 65 20 BP BP Pulse Ox 09/27/20 16:00 129/68 93 L 09/27/20 11:44 09/27/20 11:18 95 09/27/20 10:47 09/27/20 10:46 09/27/20 10:10 09/27/20 08:25 09/27/20 08:00 93 L 09/27/20 07:25 111/58 L 93 L Weight Admit Weight 198 lb Weight 198 lb I&O: 09/26/20 09/27/20 09/28/20 06:59 06:59 06:59 Intake Total 570 Output Total 650 825 Balance -80 -825 Result Diagrams: 09/26/20 04:42 09/26/20 04:42 Additional Labs: Accuchecks 09/27/20 09/27/20 09/26/20 10:36 05:45 20:26 POC Glucose 126 H 95 125 H 09/26/20 16:41 POC Glucose 86 Hospitalist ROS - Medication Medications: Active Medications Generic Name Dose Route Start Last Admin Trade Name Freq PRN Reason Stop Dose Admin Acetaminophen 500 mg 09/19/20 15:11 09/19/20 15:27 Acetaminophen 500 Mg Tab PO 500 mg Q4H PRN Administration Headache/Fever or Pain Acetaminophen/Codeine Phosphate 1 tab 09/20/20 08:17 09/22/20 06:24 Acetaminophen/Codeine 30-300mg Tablet PO 1 tab Q6H PRN Administration Moderate Pain (4-6) Alprazolam 0.5 mg 09/20/20 08:18 09/26/20 22:32 Alprazolam 0.5 Mg Tab PO 0.5 mg TIDPRN PRN Administration Anxiety Apixaban 10 mg 09/26/20 21:00 09/27/20 08:26 Apixaban 5 Mg Tab PO 10 mg BID ZANE Administration Arformoterol Tartrate 15 mcg 09/17/20 06:30 09/27/20 06:53 Arformoterol 15 Mcg/2 Ml Neb NEB 15 mcg BID-RT ZANE Administration Aspirin 325 mg 09/20/20 09:00 09/27/20 08:25 Aspirin 325 Mg Tab PO 325 mg DAILY ZANE Administration Atorvastatin Calcium 40 mg 09/20/20 21:00 09/26/20 22:33 Atorvastatin Calcium 40 Mg Tab PO 40 mg HS ZANE Administration Bisacodyl 10 mg 09/20/20 08:20 09/24/20 09:05 Bisacodyl 5 Mg Tab PO 10 mg DAILYPRN PRN Administration Constipation Carvedilol 12.5 mg 09/21/20 17:00 09/27/20 10:46 Carvedilol 6.25 Mg Tab PO Not Given BID-[facility] Cholecalciferol 5,000 units 09/17/20 09:00 09/27/20 08:23 Cholecalciferol 1,000 Units (25 Mcg) Tab PO 5,000 units DAILY ZANE Administration Digoxin 0.125 mg 09/22/20 09:00 09/27/20 08:25 Digoxin 0.125 Mg Tab PO 0.125 mg DAILY ZANE Administration Diltiazem HCl 120 mg 09/27/20 09:00 09/27/20 11:44 Diltiazem Cd 120 Mg Cap PO 120 mg DAILY ZANE Administration Furosemide 40 mg 09/24/20 09:00 09/27/20 15:35 Furosemide 40 Mg Tab PO 40 mg 0900,1400 ZANE Administration Insulin Human Lispro 0 units 09/21/20 10:56 09/26/20 14:39 Humalog 300 Units/3 Ml Vial SC 2 unit .MILD SLIDING SCALE PRN Administration Mild Correctional Scale Magnesium Oxide 400 mg 09/24/20 09:00 09/27/20 08:25 Magnesium Oxide 400 Mg Tab PO 400 mg DAILY ZANE Administration Metoprolol Tartrate 5 mg 09/20/20 08:16 09/23/20 23:41 Metoprolol Tartrate 5 Mg/5 Ml Vial IVP 5 mg Q6H PRN Administration To Control Heart Rate Morphine Sulfate 2 mg 09/16/20 15:45 09/18/20 10:43 Morphine 2 Mg/Ml Vial SLOW IVP 2 mg Q1H PRN Administration Moderate Breakthrough Pain Nitroglycerin 0.4 mg 09/16/20 19:15 09/21/20 15:08 Nitroglycerin 0.4 Mg Tab (25 Tab Bottle) SL 0.4 mg Q5MIN PRN Administration Chest Pain Nitroglycerin 0.5 inch 09/21/20 21:00 09/26/20 22:35 Nitroglycerin 2% Ointment 1 Inch/1 Gm Packet TOP 0.5 inch HS ZANE Administration Nystatin 500,000 units 09/17/20 21:00 09/27/20 15:37 Nystatin 500,000 Units/5 Ml Udcup SSW 500,000 units QID ZANE Administration Pantoprazole Sodium 40 mg 09/20/20 09:00 09/27/20 08:27 Pantoprazole 40 Mg Tab PO 40 mg DAILY ZANE Administration Pregabalin 100 mg 09/16/20 21:00 09/26/20 22:33 Pregabalin 50 Mg Cap PO 100 mg HS ZANE Administration Pregabalin 25 mg 09/17/20 09:00 09/27/20 08:24 Pregabalin 25 Mg Cap PO 25 mg QAM ZANE Administration Ramipril 2.5 mg 09/16/20 21:00 09/27/20 10:47 Ramipril 2.5 Mg Cap PO Not Given BID ZANE Senna/Docusate Sodium 2 tab 09/20/20 08:20 09/24/20 09:05 Senokot S 8.6-50 Mg Tab PO 2 tab BIDPRN PRN Administration Constipation Sodium Chloride 10 ml 09/16/20 15:45 09/22/20 05:12 Flush - Normal Saline 10 Ml Syringe IVF 10 ml PRN PRN Administration Saline Flush Tamsulosin HCl 0.4 mg 09/17/20 09:00 09/27/20 08:25 Tamsulosin Hcl 0.4 Mg Cap PO 0.4 mg DAILY ZANE Administration Tramadol HCl 50 mg 09/16/20 15:45 09/23/20 15:18 Tramadol Hcl 50 Mg Tab PO 50 mg Q6H PRN Administration PAIN (1-3) Zolpidem Tartrate 10 mg 09/20/20 08:18 09/26/20 22:35 Zolpidem Tartrate 5 Mg Tab PO 10 mg HSPRN PRN Administration Insomnia Hospitalist Exam Vitals: Vital Signs (12 hours) Temp Pulse Resp BP BP BP BP 09/27/20 16:00 98.5 F 79 17 09/27/20 11:44 77 127/60 09/27/20 11:18 97.5 F L 77 20 127/60 09/27/20 10:47 125/63 09/27/20 10:46 125/63 09/27/20 10:10 116/70 116/57 L 09/27/20 08:25 65 09/27/20 08:00 09/27/20 07:25 97.6 F 65 20 BP BP Pulse Ox 09/27/20 16:00 129/68 93 L 09/27/20 11:44 09/27/20 11:18 95 09/27/20 10:47 09/27/20 10:46 09/27/20 10:10 09/27/20 08:25 09/27/20 08:00 93 L 09/27/20 07:25 111/58 L 93 L Weight Admit Weight 198 lb Weight 198 lb General Appearance: NAD Eye: PERRL, anicteric sclera ENT: normocephalic atraumatic Neck: supple, symmetric, no JVD Heart: RRR, no murmur, no gallops Respiratory: CTAB, no wheezes, no rales Gastrointestinal: soft, non-tender, non-distended Hosp A/P (1) CVA (cerebral vascular accident) Code(s): I63.9 - CEREBRAL INFARCTION, UNSPECIFIED Status: Acute Qualifiers: CVA mechanism: embolism Precerebral and cerebral artery: middle cerebral artery Laterality of affected vessel: right Qualified Code(s): I63.411 - Cerebral infarction due to embolism of right middle cerebral artery (2) S/P lumbar laminectomy Code(s): Z98.890 - OTHER SPECIFIED POSTPROCEDURAL STATES Status: Acute (3) Atrial fibrillation Code(s): I48.91 - UNSPECIFIED ATRIAL FIBRILLATION Status: Chronic Qualifiers: Atrial fibrillation type: paroxysmal Qualified Code(s): I48.0 - Paroxysmal atrial fibrillation (4) CAD (coronary artery disease) Code(s): I25.10 - ATHSCL HEART DISEASE OF [place] CORONARY ARTERY W/O ANG PCTRS Status: Chronic Qualifiers: Coronary Disease-Associated Artery/Lesion type: [place] artery [place] vs. transplanted heart: [place] heart Associated angina: without angina Qualified Code(s): I25.10 - Atherosclerotic heart disease of [place] coronary artery without angina pectoris (5) CHF (congestive heart failure) Code(s): I50.9 - HEART FAILURE, UNSPECIFIED Status: Chronic Qualifiers: Heart failure type: systolic Heart failure chronicity: unspecified Qualified Code(s): I50.20 - Unspecified systolic (congestive) heart failure - Plan Plan for today 09/25 He continues to do well and his cardiac medication has been adjusted by cardiology, I will confer with neurosurgery when I can start him on Eliquis. We will recheck his labs in the morning Plan for today 09/26 Cardiac--- patient did have a 2.5-second pause yesterday around 11 PM, I did confer with cardiology and this pause in the setting of A. fib is not worrisome, patient will be transitioned from Cardizem 60 mg every 8 hours to Cardizem CD 120 mg once a day, this will start tomorrow. Patient is on Lovenox subcutaneously, I did confer with the neurosurgery nurse practitioner and they cleared him to be transitioned to Eliquis, so I will start him on Eliquis 10 mg twice daily for a week then 5 mg twice daily, his Lovenox will be stopped today. I did reconsult case management for placement. We will give him a lab holiday tomorrow. Plan for today 09/27 Cardiac--early this morning patient had 8 beats of nonsustained V. tach, conferred with cardiology, recommendation is for him to be on a LifeVest since he is known to have low ejection fraction, his magnesium was checked and it was within normal limits. His LifeVest will not be delivered today due to weather conditions, the rehabilitation doctor did not feel comfortable receiving him without his LifeVest, patient will stay in the hospital till tomorrow until he gets his LifeVest then possibly be discharged to rehabilitation.
[2020-09-27] MEDS: Atorvastatin Calcium 40 MG TAB PO SCH (21:30)
[2020-09-27] MEDS: Nitroglycerin 2% Ointment 1 INCH/1 GM Packet TOP SCH (21:30)
[2020-09-27] MEDS: Pregabalin 50 MG CAP PO SCH (21:31)
[2020-09-27] MEDS ORDERED: Arformoterol 15 MCG/2 ML NEB ONE (22:22)
[2020-09-28] MEDS: Arformoterol 15 MCG/2 ML NEB NEB SCH ×2 (07:39→19:56)
[2020-09-28 09:37] LABS: #Basophils 0.1 thou/uL (0.0-0.2); #Eosinphils 0.5 thou/uL (0.0-0.7); #Lymphocytes 1.7 thou/uL (1.20-3.40); #Monocytes 0.8 thou/uL (0.11-0.59); #Neutrophils 6.9 thou/uL (1.40-6.50); %Basophils 0.6 % (0.0-1.0); %Eosinophils 5.1 % (0.0-10.0); %Lymphocytes 17.2 % (21.0-51.0); %Monocytes 8.2 % (0.0-10.0); %Neutrophils 68.9 % (42.0-75.0); Hemoglobin 14.9 g/dL (14.0-18.0); Mean Corpuscular HGB CONC 31.1 g/dL (32.0-36.0); Mean Corpuscular Hemoglobin 26.8 pg (27.0-31.0); Mean Corpuscular Volume 86.1 fL (78.0-98.0); Platelet Count 177 thou/uL (130-400); RBC Distribution Width 15.7 % (11.5-14.5); Red Blood Cell (RBC) Count 5.55 mill/uL (4.70-6.10)
[2020-09-28 09:50] LABS: Anion Gap 15 mmol/L (10-20); BUN (Urea Nitrogen) 24 mg/dL (8.4-25.7); Calc. Creatinine Clearance 64 mL/min (70-130); Carbon Dioxide 32 mmol/L (23-31); Chloride 98 mmol/L (98-107); Glucose 122 mg/dL (83-110); Potassium 3.2 mmol/L (3.5-5.1); Sodium 142 mmol/L (136-145)
[2020-09-28] MEDS: Nystatin 500,000 UNITS/5 ML UDCUP SSW SCH ×5 (10:09→20:36)
[2020-09-28] MEDS: Cholecalciferol 1,000 UNITS (25 MCG) TAB PO SCH (10:10)
[2020-09-28] MEDS: Magnesium Oxide 400 MG TAB PO SCH (10:11)
[2020-09-28] MEDS: Digoxin 0.125 MG TAB PO SCH (10:11)
[2020-09-28] MEDS: Aspirin 325 MG TAB PO SCH (10:11)
[2020-09-28] MEDS: Furosemide 40 MG TAB PO SCH ×2 (10:11→13:34)
[2020-09-28] MEDS: Tamsulosin HCl 0.4 MG CAP PO SCH (10:12)
[2020-09-28] MEDS: Apixaban 5 MG TAB PO SCH ×2 (10:15→20:37)
[2020-09-28] MEDS: Carvedilol 6.25 MG TAB PO SCH ×2 (10:15→17:56)
[2020-09-28] MEDS: Pregabalin 25 MG CAP PO SCH (10:16)
--- NOTE | 2020-09-28 11:48 | PDOC.HOSPP ---
- Subjective Encounter Date: 09/28/20 (f/u stroke) Encounter Time: 11:47 Subjective: Pt with a complicated hospital course - s/p neurosurgery complicated by stroke with known atrial fibrillation. Has systolic heart failure with EF estimated at 15-20%. Pt has overall significantly improved from the stroke. Pt without complaints. Is awaiting life vest for EF 15-20% and an opening at rehab. He reports dry eyes - has been ongoing. He also notes hearing is less in left ear since stroke. - Objective Vital Signs & Weight: Vital Signs (12 hours) Temp Pulse Pulse Pulse Resp BP BP 09/28/20 10:16 119/58 L 09/28/20 10:15 119/58 L 09/28/20 10:14 74 119/58 L 09/28/20 10:11 74 09/28/20 09:14 77 74 130/58 L 09/28/20 07:39 74 20 09/28/20 07:21 97.4 F L 62 20 09/28/20 03:57 98.0 F 62 09/28/20 00:00 97.1 F L 66 20 BP BP BP Pulse Ox 09/28/20 10:16 09/28/20 10:15 09/28/20 10:14 09/28/20 10:11 09/28/20 09:14 119/55 L 09/28/20 07:39 94 L 09/28/20 07:21 109/56 L 92 L 09/28/20 03:57 118/59 L 97 09/28/20 00:00 112/53 L 96 Weight Admit Weight 198 lb Weight 198 lb I&O: 09/27/20 09/28/20 09/29/20 06:59 06:59 06:59 Intake Total 540 Output Total 825 Balance -285 Result Diagrams: 09/28/20 09:09 09/28/20 09:09 Additional Labs: Accuchecks 09/28/20 09/28/20 09/27/20 10:38 05:15 20:06 POC Glucose 141 H 105 H 153 H 09/27/20 15:34 POC Glucose 150 H EKG Reviewed by me: Yes (A fib 60-70's but currently in 50's) Hospitalist ROS - Medication Medications: Active Medications Generic Name Dose Route Start Last Admin Trade Name Freq PRN Reason Stop Dose Admin Acetaminophen 500 mg 09/19/20 15:11 09/19/20 15:27 Acetaminophen 500 Mg Tab PO 500 mg Q4H PRN Administration Headache/Fever or Pain Acetaminophen/Codeine Phosphate 1 tab 09/20/20 08:17 09/22/20 06:24 Acetaminophen/Codeine 30-300mg Tablet PO 1 tab Q6H PRN Administration Moderate Pain (4-6) Alprazolam 0.5 mg 09/20/20 08:18 09/26/20 22:32 Alprazolam 0.5 Mg Tab PO 0.5 mg TIDPRN PRN Administration Anxiety Apixaban 10 mg 09/26/20 21:00 09/28/20 10:15 Apixaban 5 Mg Tab PO 10 mg BID ZANE Administration Arformoterol Tartrate 15 mcg 09/17/20 06:30 09/28/20 07:39 Arformoterol 15 Mcg/2 Ml Neb NEB 15 mcg BID-RT ZANE Administration Aspirin 325 mg 09/20/20 09:00 09/28/20 10:11 Aspirin 325 Mg Tab PO 325 mg DAILY ZANE Administration Atorvastatin Calcium 40 mg 09/20/20 21:00 09/27/20 21:30 Atorvastatin Calcium 40 Mg Tab PO 40 mg HS ZANE Administration Bisacodyl 10 mg 09/20/20 08:20 09/24/20 09:05 Bisacodyl 5 Mg Tab PO 10 mg DAILYPRN PRN Administration Constipation Carvedilol 12.5 mg 09/21/20 17:00 09/28/20 10:15 Carvedilol 6.25 Mg Tab PO 12.5 mg BID-WM ZANE Administration Cholecalciferol 5,000 units 09/17/20 09:00 09/28/20 10:10 Cholecalciferol 1,000 Units (25 Mcg) Tab PO 5,000 units DAILY ZANE Administration Digoxin 0.125 mg 09/22/20 09:00 09/28/20 10:11 Digoxin 0.125 Mg Tab PO 0.125 mg DAILY ZANE Administration Diltiazem HCl 120 mg 09/27/20 09:00 09/28/20 10:14 Diltiazem Cd 120 Mg Cap PO 120 mg DAILY ZANE Administration Furosemide 40 mg 09/24/20 09:00 09/28/20 10:11 Furosemide 40 Mg Tab PO 40 mg 0900,1400 ZANE Administration Insulin Human Lispro 0 units 09/21/20 10:56 09/26/20 14:39 Humalog 300 Units/3 Ml Vial SC 2 unit .MILD SLIDING SCALE PRN Administration Mild Correctional Scale Magnesium Oxide 400 mg 09/24/20 09:00 09/28/20 10:11 Magnesium Oxide 400 Mg Tab PO 400 mg DAILY ZANE Administration Metoprolol Tartrate 5 mg 09/20/20 08:16 09/23/20 23:41 Metoprolol Tartrate 5 Mg/5 Ml Vial IVP 5 mg Q6H PRN Administration To Control Heart Rate Morphine Sulfate 2 mg 09/16/20 15:45 09/18/20 10:43 Morphine 2 Mg/Ml Vial SLOW IVP 2 mg Q1H PRN Administration Moderate Breakthrough Pain Nitroglycerin 0.4 mg 09/16/20 19:15 09/21/20 15:08 Nitroglycerin 0.4 Mg Tab (25 Tab Bottle) SL 0.4 mg Q5MIN PRN Administration Chest Pain Nitroglycerin 0.5 inch 09/21/20 21:00 09/27/20 21:30 Nitroglycerin 2% Ointment 1 Inch/1 Gm Packet TOP 0.5 inch HS ZANE Administration Nystatin 500,000 units 09/17/20 21:00 09/28/20 10:19 Nystatin 500,000 Units/5 Ml Udcup SSW Not Given QID ZANE Pantoprazole Sodium 40 mg 09/20/20 09:00 09/28/20 10:11 Pantoprazole 40 Mg Tab PO 40 mg DAILY ZANE Administration Pregabalin 100 mg 09/16/20 21:00 09/27/20 21:31 Pregabalin 50 Mg Cap PO 100 mg HS ZANE Administration Pregabalin 25 mg 09/17/20 09:00 09/28/20 10:16 Pregabalin 25 Mg Cap PO 25 mg QAM ZANE Administration Ramipril 2.5 mg 09/16/20 21:00 09/28/20 10:16 Ramipril 2.5 Mg Cap PO 2.5 mg BID ZANE Administration Senna/Docusate Sodium 2 tab 09/20/20 08:20 09/24/20 09:05 Senokot S 8.6-50 Mg Tab PO 2 tab BIDPRN PRN Administration Constipation Sodium Chloride 10 ml 09/16/20 15:45 09/22/20 05:12 Flush - Normal Saline 10 Ml Syringe IVF 10 ml PRN PRN Administration Saline Flush Tamsulosin HCl 0.4 mg 09/17/20 09:00 09/28/20 10:12 Tamsulosin Hcl 0.4 Mg Cap PO 0.4 mg DAILY ZANE Administration Tramadol HCl 50 mg 09/16/20 15:45 09/23/20 15:18 Tramadol Hcl 50 Mg Tab PO 50 mg Q6H PRN Administration PAIN (1-3) Zolpidem Tartrate 10 mg 09/20/20 08:18 09/26/20 22:35 Zolpidem Tartrate 5 Mg Tab PO 10 mg HSPRN PRN Administration Insomnia Hospitalist Exam Vitals: Vital Signs (12 hours) Temp Pulse Pulse Pulse Resp BP BP 09/28/20 10:16 119/58 L 09/28/20 10:15 119/58 L 09/28/20 10:14 74 119/58 L 09/28/20 10:11 74 09/28/20 09:14 77 74 130/58 L 09/28/20 07:39 74 20 09/28/20 07:21 97.4 F L 62 20 09/28/20 03:57 98.0 F 62 09/28/20 00:00 97.1 F L 66 20 BP BP BP Pulse Ox 09/28/20 10:16 09/28/20 10:15 09/28/20 10:14 09/28/20 10:11 09/28/20 09:14 119/55 L 09/28/20 07:39 94 L 09/28/20 07:21 109/56 L 92 L 09/28/20 03:57 118/59 L 97 09/28/20 00:00 112/53 L 96 Weight Admit Weight 198 lb Weight 198 lb General Appearance: NAD ENT - other findings: left facial droop Heart: no murmur, irregular Respiratory: no wheezes, no rales, no ronchi Gastrointestinal: soft, non-tender, non-distended, normal bowel sounds Extremities: no cyanosis, no clubbing, no edema Psychiatric: normal affect Hosp A/P (1) CVA (cerebral vascular accident) Code(s): I63.9 - CEREBRAL INFARCTION, UNSPECIFIED Status: Acute Qualifiers: CVA mechanism: embolism Precerebral and cerebral artery: middle cerebral artery Laterality of affected vessel: right Qualified Code(s): I63.411 - Cerebral infarction due to embolism of right middle cerebral artery (2) Hypokalemia Code(s): E87.6 - HYPOKALEMIA Status: Acute (3) S/P lumbar laminectomy Code(s): Z98.890 - OTHER SPECIFIED POSTPROCEDURAL STATES Status: Acute (4) Atrial fibrillation Code(s): I48.91 - UNSPECIFIED ATRIAL FIBRILLATION Status: Chronic Qualifiers: Atrial fibrillation type: paroxysmal Qualified Code(s): I48.0 - Paroxysmal atrial fibrillation (5) CAD (coronary artery disease) Code(s): I25.10 - ATHSCL HEART DISEASE OF [place] CORONARY ARTERY W/O ANG PCTRS Status: Chronic Qualifiers: Coronary Disease-Associated Artery/Lesion type: [place] artery [place] vs. transplanted heart: [place] heart Associated angina: without angina Qualified Code(s): I25.10 - Atherosclerotic heart disease of [place] coronary artery without angina pectoris - Plan s/p Neurosurgery - cleared for rehab A fib with bradycardia now - lower coreg to 6.25 mg BID with hold parameters and monitor - continue digoxin for now Dry eyes - scheduled drops during the day and ointment at night Systolic HF - await Life vest - replace potassium Hypokalemia - replace potassium and recheck tomorrow Hypertension - bp's well controlled dvt prophy - on eliquis for stroke risk reduction associated with atrial fibrillation - started on Sep. gi prophy - not indicated code status full reviewed plan of care with patient/, no questions or further needs at end of eval Ready for transfer when life vest received and there is availability at rehab.
[2020-09-28] MEDS ORDERED: Potassium Chloride 20 MEQ TAB PO SCH (12:00)
[2020-09-28] MEDS: Artificial Tear Sol 15 ML BOT EA EYE SCH ×3 (13:31→20:39)
[2020-09-28] MEDS: Nitroglycerin 2% Ointment 1 INCH/1 GM Packet TOP SCH (20:35)
[2020-09-28] MEDS: Pregabalin 50 MG CAP PO SCH (20:36)
[2020-09-28] MEDS: Atorvastatin Calcium 40 MG TAB PO SCH (20:37)
[2020-09-28] MEDS: ALPRAZolam 0.5 MG TAB PO PRN (20:37)
[2020-09-28] MEDS: Zolpidem Tartrate 5 MG TAB PO PRN (20:38)
[2020-09-29 04:56] LABS: #Eosinphils 0.5 thou/uL (0.0-0.7); #Lymphocytes 1.9 thou/uL (1.20-3.40); #Monocytes 0.8 thou/uL (0.11-0.59); #Neutrophils 4.9 thou/uL (1.40-6.50); %Basophils 0.4 % (0.0-1.0); %Eosinophils 6.3 % (0.0-10.0); %Lymphocytes 23.1 % (21.0-51.0); %Monocytes 9.5 % (0.0-10.0); %Neutrophils 60.7 % (42.0-75.0); Hemoglobin 13.9 g/dL (14.0-18.0); Mean Corpuscular HGB CONC 31.5 g/dL (32.0-36.0); Mean Corpuscular Volume 85.9 fL (78.0-98.0); Mean Platelet Volume 10.7 fL (7.4-10.4); Platelet Count 183 thou/uL (130-400); RBC Distribution Width 15.6 % (11.5-14.5); Red Blood Cell (RBC) Count 5.15 mill/uL (4.70-6.10); White Blood Cell (WBC) Count 8.1 thou/uL (4.8-10.8)
[2020-09-29 05:24] LABS: Anion Gap 13 mmol/L (10-20); BUN (Urea Nitrogen) 25 mg/dL (8.4-25.7); Calc. Creatinine Clearance 62 mL/min (70-130); Calcium 8.7 mg/dL (7.8-10.44); Carbon Dioxide 31 mmol/L (23-31); Chloride 98 mmol/L (98-107); Glucose 93 mg/dL (83-110); Magnesium 1.9 mg/dL (1.6-2.6); Potassium 3.2 mmol/L (3.5-5.1); Sodium 139 mmol/L (136-145)
[2020-09-29] MEDS ORDERED: Potassium Chloride 20 MEQ TAB PO SCH (06:45)
[2020-09-29] MEDS ORDERED: Electrolyte Replacement Protocol 1 EACH FS SCH (06:45)
[2020-09-29] MEDS ORDERED: Magnesium 2 GM/50 ML 2 GM in Premix Bag 1 BAG IVPB SCH (06:45)
[2020-09-29] MEDS: Artificial Tear Sol 15 ML BOT EA EYE SCH ×4 (06:55→20:32)
--- NOTE | 2020-09-29 07:58 | PDOC.HOSPP ---
- Subjective Encounter Date: 09/29/20 (f/u stroke) Encounter Time: 07:55 Subjective: 75 y/o male who presented to hospital for Neurosurgery with post-operative stroke. Pt has known atrial fibrillation, a new diagnosis of systolic heart failure with low ejection fraction who has overall improved from the stroke. He remains in the hospital for adjustment of medications and awaiting rehab placem ent. Pt without complaints, no overnight events. He denies any pain. Last BM yesterday. - Objective Vital Signs & Weight: Vital Signs (12 hours) Temp Pulse Resp BP BP Pulse Ox 09/29/20 03:37 98.1 F 59 L 16 96/51 L 93 L 09/28/20 20:00 97.5 F L 62 20 120/60 100 09/28/20 19:57 93 L 09/28/20 19:56 93 L Weight Admit Weight 198 lb Weight 198 lb I&O: 09/28/20 09/29/20 09/30/20 06:59 06:59 06:59 Intake Total 540 960 Output Total 825 Balance -285 960 Result Diagrams: 09/29/20 04:42 09/29/20 04:42 Additional Labs: Accuchecks 09/29/20 09/28/20 09/28/20 05:43 16:31 10:38 POC Glucose 91 103 H 141 H EKG Reviewed by me: Yes (tele - a fib 60's, episodes of slow conduction) Hospitalist ROS - Medication Medications: Active Medications Generic Name Dose Route Start Last Admin Trade Name Freq PRN Reason Stop Dose Admin Acetaminophen 500 mg 09/19/20 15:11 09/19/20 15:27 Acetaminophen 500 Mg Tab PO 500 mg Q4H PRN Administration Headache/Fever or Pain Acetaminophen/Codeine Phosphate 1 tab 09/20/20 08:17 09/22/20 06:24 Acetaminophen/Codeine 30-300mg Tablet PO 1 tab Q6H PRN Administration Moderate Pain (4-6) Alprazolam 0.5 mg 09/20/20 08:18 09/28/20 20:37 Alprazolam 0.5 Mg Tab PO 0.5 mg TIDPRN PRN Administration Anxiety Apixaban 5 mg 09/28/20 21:00 09/28/20 20:37 Apixaban 5 Mg Tab PO 5 mg BID ZANE Administration Arformoterol Tartrate 15 mcg 09/17/20 06:30 09/28/20 19:56 Arformoterol 15 Mcg/2 Ml Neb NEB 15 mcg BID-RT ZANE Administration Artificial Tears 2 drop 09/28/20 12:00 09/29/20 06:55 Artificial Tear Kadie 15 Ml Bot EA EYE Not Given Q6H ZANE Atorvastatin Calcium 40 mg 09/20/20 21:00 09/28/20 20:37 Atorvastatin Calcium 40 Mg Tab PO 40 mg HS ZANE Administration Bisacodyl 10 mg 09/20/20 08:20 09/24/20 09:05 Bisacodyl 5 Mg Tab PO 10 mg DAILYPRN PRN Administration Constipation Carvedilol 6.25 mg 09/28/20 17:00 09/28/20 17:56 Carvedilol 6.25 Mg Tab PO Not Given BID-WM ZANE Cholecalciferol 5,000 units 09/17/20 09:00 09/28/20 10:10 Cholecalciferol 1,000 Units (25 Mcg) Tab PO 5,000 units DAILY ZANE Administration Digoxin 0.125 mg 09/22/20 09:00 09/28/20 10:11 Digoxin 0.125 Mg Tab PO 0.125 mg DAILY ZANE Administration Diltiazem HCl 120 mg 09/27/20 09:00 09/28/20 10:14 Diltiazem Cd 120 Mg Cap PO 120 mg DAILY ZANE Administration Insulin Human Lispro 0 units 09/21/20 10:56 09/26/20 14:39 Humalog 300 Units/3 Ml Vial SC 2 unit .MILD SLIDING SCALE PRN Administration Mild Correctional Scale Magnesium Oxide 400 mg 09/24/20 09:00 09/28/20 10:11 Magnesium Oxide 400 Mg Tab PO 400 mg DAILY ZANE Administration Mineral Oil/White Petrolatum 1 gm 09/28/20 21:00 09/28/20 20:39 Artificial Tear Ointment 3.5 Gm Tube EA EYE Not Given HS ZANE Morphine Sulfate 2 mg 09/16/20 15:45 09/18/20 10:43 Morphine 2 Mg/Ml Vial SLOW IVP 2 mg Q1H PRN Administration Moderate Breakthrough Pain Nitroglycerin 0.4 mg 09/16/20 19:15 09/21/20 15:08 Nitroglycerin 0.4 Mg Tab (25 Tab Bottle) SL 0.4 mg Q5MIN PRN Administration Chest Pain Nitroglycerin 0.5 inch 09/21/20 21:00 09/28/20 20:35 Nitroglycerin 2% Ointment 1 Inch/1 Gm Packet TOP 0.5 inch HS ZANE Administration Nystatin 500,000 units 09/17/20 21:00 09/28/20 20:36 Nystatin 500,000 Units/5 Ml Udcup SSW 500,000 units QID ZANE Administration Pantoprazole Sodium 40 mg 09/20/20 09:00 09/28/20 10:11 Pantoprazole 40 Mg Tab PO 40 mg DAILY ZANE Administration Pregabalin 100 mg 09/16/20 21:00 09/28/20 20:36 Pregabalin 50 Mg Cap PO 100 mg HS ZANE Administration Pregabalin 25 mg 09/17/20 09:00 09/28/20 10:16 Pregabalin 25 Mg Cap PO 25 mg QAM ZANE Administration Ramipril 2.5 mg 09/28/20 21:00 09/28/20 21:56 Ramipril 2.5 Mg Cap PO 2.5 mg BID ZANE Administration Senna/Docusate Sodium 2 tab 09/20/20 08:20 09/24/20 09:05 Senokot S 8.6-50 Mg Tab PO 2 tab BIDPRN PRN Administration Constipation Sodium Chloride 10 ml 09/16/20 15:45 09/22/20 05:12 Flush - Normal Saline 10 Ml Syringe IVF 10 ml PRN PRN Administration Saline Flush Tramadol HCl 50 mg 09/16/20 15:45 09/23/20 15:18 Tramadol Hcl 50 Mg Tab PO 50 mg Q6H PRN Administration PAIN (1-3) Zolpidem Tartrate 10 mg 09/20/20 08:18 09/28/20 20:38 Zolpidem Tartrate 5 Mg Tab PO 10 mg HSPRN PRN Administration Insomnia Hospitalist Exam Vitals: Vital Signs (12 hours) Temp Pulse Resp BP BP Pulse Ox 09/29/20 03:37 98.1 F 59 L 16 96/51 L 93 L 09/28/20 20:00 97.5 F L 62 20 120/60 100 09/28/20 19:57 93 L 09/28/20 19:56 93 L Weight Admit Weight 198 lb Weight 198 lb General Appearance: NAD Heart: no murmur, irregular Respiratory: no wheezes, no rales, no ronchi Gastrointestinal: soft, non-tender, non-distended, normal bowel sounds Extremities: no cyanosis, no clubbing, no edema Psychiatric: normal affect Hosp A/P (1) CVA (cerebral vascular accident) Code(s): I63.9 - CEREBRAL INFARCTION, UNSPECIFIED Status: Acute Qualifiers: CVA mechanism: embolism Precerebral and cerebral artery: middle cerebral artery Laterality of affected vessel: right Qualified Code(s): I63.411 - Cerebral infarction due to embolism of right middle cerebral artery (2) Hypokalemia Code(s): E87.6 - HYPOKALEMIA Status: Acute (3) S/P lumbar laminectomy Code(s): Z98.890 - OTHER SPECIFIED POSTPROCEDURAL STATES Status: Acute (4) Atrial fibrillation Code(s): I48.91 - UNSPECIFIED ATRIAL FIBRILLATION Status: Chronic Qualifiers: Atrial fibrillation type: paroxysmal Qualified Code(s): I48.0 - Paroxysmal atrial fibrillation (5) CAD (coronary artery disease) Code(s): I25.10 - ATHSCL HEART DISEASE OF [place] CORONARY ARTERY W/O ANG PCTRS Status: Chronic Qualifiers: Coronary Disease-Associated Artery/Lesion type: [place] artery [place] vs. transplanted heart: [place] heart Associated angina: without angina Qualified Code(s): I25.10 - Atherosclerotic heart disease of [place] coronary artery without angina pectoris - Plan s/p Neurosurgery - cleared for rehab A fib with bradycardia yesterday - coreg decreased yesterday, no change to diltiazem and digoxin - monitor bp's - on the lower side at times and hold parameters placed on meds Dry eyes - scheduled drops during the day and ointment at night Systolic HF - hold parameters on meds to avoid hypotension - replace potassium Hypokalemia - replace potassium - electrolyte protocol ordered Stroke - overall has made significant improvement - aspirin lowered to 81 mg as the pt is on full anticoagulation dvt prophy - on eliquis for stroke risk reduction associated with atrial fibrillation - dose lowered yesterday to 5 mg BID for dosing consistent with stroke risk reduction for a fib gi prophy - not indicated code status full reviewed plan of care with patient/son, no questions or further needs at end of eval Ready for transfer when bed available at rehab.
[2020-09-29] MEDS: Cholecalciferol 1,000 UNITS (25 MCG) TAB PO SCH (10:19)
[2020-09-29] MEDS: Digoxin 0.125 MG TAB PO SCH (10:19)
[2020-09-29] MEDS: Magnesium Oxide 400 MG TAB PO SCH (10:19)
[2020-09-29] MEDS: Nystatin 500,000 UNITS/5 ML UDCUP SSW SCH ×4 (10:19→20:32)
[2020-09-29] MEDS: Aspirin 81 mg Enteric Coated Tablet PO SCH (10:20)
[2020-09-29] MEDS: Apixaban 5 MG TAB PO SCH ×2 (10:20→20:34)
[2020-09-29] MEDS: Pregabalin 25 MG CAP PO SCH (10:20)
[2020-09-29] MEDS: Tamsulosin HCl 0.4 MG CAP PO SCH (10:21)
[2020-09-29] MEDS: Furosemide 40 MG TAB PO SCH ×2 (10:22→13:51)
[2020-09-29] MEDS: Arformoterol 15 MCG/2 ML NEB NEB SCH ×2 (11:47→19:13)
[2020-09-29] MEDS: Carvedilol 6.25 MG TAB PO SCH (12:57)
[2020-09-29] MEDS: ALPRAZolam 0.5 MG TAB PO PRN ×2 (13:51→20:34)
--- NOTE | 2020-09-29 15:00 | PDOC.CPN ---
- Subjective Date: 09/29/20 Time: 14:58 Interval history: Feels ok except requesting air bed to prevent skin breakdown. Hypotensive this morning. Tele reviewed and intermittent slow ventricular response. - Review of Systems General: denies: fever/chills, weight/appetite/sleep changes, night sweats, fatigue Respiratory: denies: cough, congestion, shortness of breath, exercise intolerance Cardiovascular: denies: chest pain, palpitation, edema, paroxysmal nocturnal dyspnea, orthopnea Gastrointestinal: denies: nausea, vomiting, diarrhea, constipation, abd pain, GI bleeding Musculoskeletal: denies: pain, tenderness, stiffness, swelling, arthritis/a rthralgias Neurological: reports: numbness, weakness - Objective Allergies/Adverse Reactions: Allergies Allergy/AdvReac Type Severity Reaction Status Date / Time citalopram Allergy Verified 10/30/19 23:53 ketorolac tromethamine Allergy Verified 10/30/19 23:53 [From Toradol] Penicillins Allergy Verified 10/30/19 23:53 adhesives Allergy Intermediate Uncoded 10/30/19 23:53 Visit Medications: Current Medications Acetaminophen (Acetaminophen 500 Mg Tab) 500 mg PO Q4H PRN PRN Reason: Headache/Fever or Pain Last Admin: 09/19/20 15:27 Dose: 500 mg Documented by: Acetaminophen/Codeine Phosphate (Acetaminophen/Codeine 30-300mg Tablet) 1 tab PO Q6H PRN PRN Reason: Moderate Pain (4-6) Last Admin: 09/22/20 06:24 Dose: 1 tab Documented by: Al Hydroxide/Mg Hydroxide (Mag-Al 1200 Mg/1200 Mg/30 Ml Udcup) 30 ml PO Q4H PRN PRN Reason: Heartburn or Indigestion Albuterol Sulfate (Albuterol Sulfate 2.5 Mg/3 Ml Neb) 2.5 mg NEB Q6H PRN PRN Reason: COPD Albuterol/Ipratropium (Ipratropium/Albuterol Sulfate 3 Ml Neb) 3 ml NEB Q6H PRN PRN Reason: SOB &/or Wheezing Alprazolam (Alprazolam 0.5 Mg Tab) 0.5 mg PO TIDPRN PRN PRN Reason: Anxiety Last Admin: 09/29/20 13:51 Dose: 0.5 mg Documented by: Apixaban (Apixaban 5 Mg Tab) 5 mg PO BID [facility] Last Admin: 09/29/20 10:20 Dose: 5 mg Documented by: Arformoterol Tartrate (Arformoterol 15 Mcg/2 Ml Neb) 15 mcg NEB BID-RT [facility] Last Admin: 09/29/20 11:47 Dose: Not Given Documented by: Artificial Tears (Artificial Tear Kadie 15 Ml Bot) 2 drop EA EYE Q6H [facility] Last Admin: 09/29/20 13:04 Dose: 2 drop Documented by: Aspirin (Aspirin 81 Mg Enteric Coated Tablet) 81 mg PO DAILY [facility] Last Admin: 09/29/20 10:20 Dose: 81 mg Documented by: Atorvastatin Calcium (Atorvastatin Calcium 40 Mg Tab) 40 mg PO HS [facility] Last Admin: 09/28/20 20:37 Dose: 40 mg Documented by: Benzonatate (Benzonatate 100 Mg Cap) 100 mg PO Q6H PRN PRN Reason: Cough Bisacodyl (Bisacodyl 5 Mg Tab) 10 mg PO DAILYPRN PRN PRN Reason: Constipation Last Admin: 09/24/20 09:05 Dose: 10 mg Documented by: Budesonide (Budesonide 0.5 Mg/2 Ml Neb) 0.5 mg NEB Q12H PRN PRN Reason: Wheezing Calcium Carbonate (Calcium Carbonate 500 Mg Chewtab) 1,000 mg PO Q4H PRN PRN Reason: Heartburn or Indigestion Carvedilol (Carvedilol 6.25 Mg Tab) 6.25 mg PO BID-WM [facility] Chlorhexidine Gluconate (Chlorhexidine Gluconate 15 Ml Udcup) 15 ml SSP ASDIR PRN PRN Reason: MOUTH ULCERS Cholecalciferol (Cholecalciferol 1,000 Units (25 Mcg) Tab) 5,000 units PO DAILY [facility] Last Admin: 09/29/20 10:19 Dose: 5,000 units Documented by: Dextrose/Water (Dextrose 50% Abboject 50 Ml Syringe) 25 gm SLOW IVP PRN PRN PRN Reason: Hypoglycemia Digoxin (Digoxin 0.125 Mg Tab) 0.125 mg PO DAILY [facility] Last Admin: 09/29/20 10:19 Dose: 0.125 mg Documented by: Furosemide (Furosemide 20 Mg Tab) 20 mg PO 0900,1400 [facility] Glucagon (Glucagon 1 Mg/Ml Vial) 1 mg IM PRN PRN PRN Reason: Hypoglycemia Guaifenesin (Guaifenesin Sf Soln 200 Mg/10 Ml Udcup) 200 mg PO Q4H PRN PRN Reason: Cough Hydralazine HCl (Hydralazine 20 Mg/Ml Vial) 10 mg SLOW IVP Q4H PRN PRN Reason: SBP > 180 and HR < 70 Dextrose/Water (D5w) 1,000 mls @ 0 mls/hr IV .Q0M PRN PRN Reason: Hypoglycemia Insulin Human Lispro (Humalog 300 Units/3 Ml Vial) 0 units SC .BEDTIME SLIDING SC PRN PRN Reason: Bedtime Correctional Scale Insulin Human Lispro (Humalog 300 Units/3 Ml Vial) 0 units SC .MILD SLIDING SCALE PRN PRN Reason: Mild Correctional Scale Last Admin: 09/26/20 14:39 Dose: 2 unit Documented by: Loperamide HCl (Loperamide Hcl 2 Mg Cap) 2 mg PO PRN PRN PRN Reason: Diarrhea/Loose Stools Loratadine (Loratadine 10 Mg Tab) 10 mg PO DAILYPRN PRN PRN Reason: Sinus Symptoms Magnesium Hydroxide (Milk Of Magnesia 30 Ml Udcup) 30 ml PO Q12H PRN PRN Reason: Constipation Magnesium Oxide (Magnesium Oxide 400 Mg Tab) 400 mg PO DAILY [facility] Last Admin: 09/29/20 10:19 Dose: 400 mg Documented by: Mineral Oil/White Petrolatum (Artificial Tear Ointment 3.5 Gm Tube) 1 gm EA EYE [facility] Last Admin: 09/28/20 20:39 Dose: Not Given Documented by: Miscellaneous Medication (Electrolyte Replacement Protocol 1 Each) 1 each FS ASDIR [facility] Morphine Sulfate (Morphine 2 Mg/Ml Vial) 2 mg SLOW IVP Q1H PRN PRN Reason: Moderate Breakthrough Pain Last Admin: 09/18/20 10:43 Dose: 2 mg Documented by: Nitroglycerin (Nitroglycerin 0.4 Mg Tab (25 Tab Bottle)) 0.4 mg SL Q5MIN PRN PRN Reason: Chest Pain Last Admin: 09/21/20 15:08 Dose: 0.4 mg Documented by: Nitroglycerin (Nitroglycerin 2% Ointment 1 Inch/1 Gm Packet) 0.5 inch TOP [facility] Last Admin: 09/28/20 20:35 Dose: 0.5 inch Documented by: Nystatin (Nystatin 500,000 Units/5 Ml Udcup) 500,000 units SSW QID [facility] Last Admin: 09/29/20 13:04 Dose: 500,000 units Documented by: Ondansetron HCl (Ondansetron Pf 4 Mg/2 Ml Vial) 4 mg IM Q6H PRN PRN Reason: Nausea/Vomiting Ondansetron HCl (Ondansetron Odt 4 Mg Tab) 4 mg PO Q6H PRN PRN Reason: Nausea/Vomiting Pantoprazole Sodium (Pantoprazole 40 Mg Tab) 40 mg PO DAILY [facility] Last Admin: 09/29/20 10:21 Dose: 40 mg Documented by: Pregabalin (Pregabalin 50 Mg Cap) 100 mg PO HS [facility] Last Admin: 09/28/20 20:36 Dose: 100 mg Documented by: Pregabalin (Pregabalin 25 Mg Cap) 25 mg PO QAM [facility] Last Admin: 09/29/20 10:20 Dose: 25 mg Documented by: Senna/Docusate Sodium (Senokot S 8.6-50 Mg Tab) 2 tab PO BIDPRN PRN PRN Reason: Constipation Last Admin: 09/24/20 09:05 Dose: 2 tab Documented by: Sodium Chloride (Flush - Normal Saline 10 Ml Syringe) 10 ml IVF PRN PRN PRN Reason: Saline Flush Last Admin: 09/22/20 05:12 Dose: 10 ml Documented by: Sodium Chloride (Flush - Normal Saline 10 Ml Syringe) 10 ml IVF PRN PRN PRN Reason: Saline Flush Sodium Chloride (Sodium Chloride 0.65% Nasal 44 Ml Bot) 0 ml EA NARE QIDPRN PRN PRN Reason: Nasal Congestion Tamsulosin HCl (Tamsulosin Hcl 0.4 Mg Cap) 0.4 mg PO DAILY [facility] Last Admin: 09/29/20 10:21 Dose: 0.4 mg Documented by: Throat Lozenges (Cepastat Lozenges 1 Taiwo) 1 taiwo PO Q2H PRN PRN Reason: Sore Throat Tizanidine HCl (Tizanidine Hcl 4 Mg Tab) 4 mg PO Q6H PRN PRN Reason: MUSCLE SPASM Tramadol HCl (Tramadol Hcl 50 Mg Tab) 50 mg PO Q6H PRN PRN Reason: PAIN (1-3) Last Admin: 09/23/20 15:18 Dose: 50 mg Documented by: Zolpidem Tartrate (Zolpidem Tartrate 5 Mg Tab) 10 mg PO HSPRN PRN PRN Reason: Insomnia Last Admin: 09/28/20 20:38 Dose: 10 mg Documented by: Vital Signs & Weight: Vital Signs Temp Pulse Resp BP BP BP Pulse Ox 09/29/20 12:57 114/53 L 09/29/20 10:55 97.5 F L 72 18 131/56 L 96 09/29/20 10:27 72 114/53 L 09/29/20 10:20 95 09/29/20 10:19 72 09/29/20 07:25 98.3 F 62 16 99/58 L 95 09/29/20 03:37 98.1 F 59 L 16 96/51 L 93 L Admit Weight 198 lb Weight 198 lb - Quality Measures Condition: Atrial Fibrillation/Flutter (hx or current) CV meds: Beta Myranda: Yes, PAU/ARB: Yes, Statin: Yes, ASA: Yes, Anticoagulant: Yes (lovenox 90 BID) - Medication Contraindications No Antithrombotic reason: Treatment not indicated - Physical Exam General: alert & oriented x3, appears well, no apparent distress HEENT: mucus membranes moist Cardiac: other (IRR IRR) Lungs: no wheeze, rales, rhonchi Abdomen: soft Extremities: no clubbing, no edema Skin: clear Musculoskeletal: no pain - Labs Result Diagrams: 09/29/20 04:42 09/29/20 04:42 Troponin/CKMB Troponin I 0.080 ng/mL (< 0.028) H 09/20/20 19:19 - Assessment/Plan Assessment/Plan: 1. s/p recent lumbar surgery 2. AFib 3. s/p recent CVA 4. Acute on chronic systolic CHF (EF 15-20%) LifeVest in place. Will stop cardizem. Increase Coreg. Decrease lasix to 20mg BID. Plan for rehab placement in the near future.
[2020-09-29] MEDS ORDERED: Carvedilol 3.125 MG TAB PO SCH (17:00)
[2020-09-29] MEDS: Pregabalin 50 MG CAP PO SCH (20:33)
[2020-09-29] MEDS: Nitroglycerin 2% Ointment 1 INCH/1 GM Packet TOP SCH (20:33)
[2020-09-29] MEDS: Atorvastatin Calcium 40 MG TAB PO SCH (20:34)
[2020-09-29] MEDS: Zolpidem Tartrate 5 MG TAB PO PRN (20:34)
[2020-09-30 05:22] LABS: #Basophils 0.1 thou/uL (0.0-0.2); #Eosinphils 0.5 thou/uL (0.0-0.7); #Lymphocytes 1.8 thou/uL (1.20-3.40); #Monocytes 0.9 thou/uL (0.11-0.59); #Neutrophils 4.5 thou/uL (1.40-6.50); %Eosinophils 6.7 % (0.0-10.0); %Lymphocytes 23.4 % (21.0-51.0); %Neutrophils 57.9 % (42.0-75.0); Hemoglobin 14.8 g/dL (14.0-18.0); Mean Corpuscular HGB CONC 31.3 g/dL (32.0-36.0); Mean Corpuscular Hemoglobin 26.9 pg (27.0-31.0); Mean Corpuscular Volume 85.8 fL (78.0-98.0); Mean Platelet Volume 11.1 fL (7.4-10.4); Platelet Count 189 thou/uL (130-400); RBC Distribution Width 15.8 % (11.5-14.5); Red Blood Cell (RBC) Count 5.52 mill/uL (4.70-6.10); White Blood Cell (WBC) Count 7.7 thou/uL (4.8-10.8)
[2020-09-30 05:45] LABS: Anion Gap 13 mmol/L (10-20); BUN (Urea Nitrogen) 24 mg/dL (8.4-25.7); Calc. Creatinine Clearance 64 mL/min (70-130); Calcium 8.8 mg/dL (7.8-10.44); Carbon Dioxide 31 mmol/L (23-31); Chloride 99 mmol/L (98-107); Glucose 98 mg/dL (83-110); Potassium 3.3 mmol/L (3.5-5.1); Sodium 140 mmol/L (136-145)
[2020-09-30] MEDS ORDERED: Magnesium 2 GM/50 ML 2 GM in Premix Bag 1 BAG IVPB SCH (06:15)
[2020-09-30] MEDS ORDERED: Potassium Chloride 20 MEQ TAB PO SCH (06:30)
[2020-09-30] MEDS: Arformoterol 15 MCG/2 ML NEB NEB SCH (07:11)
[2020-09-30] MEDS: Artificial Tear Sol 15 ML BOT EA EYE SCH ×3 (07:13→16:42)
[2020-09-30] MEDS ORDERED: Magnesium Oxide 400 MG TAB PO SCH (08:45)
--- NOTE | 2020-09-30 09:23 | PDOC.HOSPP ---
- Subjective Encounter Date: 09/30/20 Encounter Time: 09:13 - Objective Vital Signs & Weight: Vital Signs (12 hours) Temp Pulse Resp BP BP Pulse Ox 09/30/20 07:30 98.1 F 74 20 120/66 94 L 09/30/20 07:12 92 L 09/30/20 07:11 69 16 92 L 09/30/20 04:31 96.6 F L 70 14 114/56 L 92 L Weight Admit Weight 198 lb Weight 198 lb I&O: 09/29/20 09/30/20 10/01/20 06:59 06:59 06:59 Intake Total 960 Balance 960 Result Diagrams: 09/30/20 04:58 09/30/20 04:58 Additional Labs: Accuchecks 09/30/20 09/29/20 09/29/20 06:31 21:43 17:06 POC Glucose 101 H 125 H 124 H 09/29/20 10:52 POC Glucose 163 H Hospitalist ROS - Medication Medications: Active Medications Generic Name Dose Route Start Last Admin Trade Name Freq PRN Reason Stop Dose Admin Acetaminophen 500 mg 09/19/20 15:11 09/19/20 15:27 Acetaminophen 500 Mg Tab PO 500 mg Q4H PRN Administration Headache/Fever or Pain Apixaban 5 mg 09/28/20 21:00 09/29/20 20:34 Apixaban 5 Mg Tab PO 5 mg BID ZANE Administration Arformoterol Tartrate 15 mcg 09/17/20 06:30 09/30/20 07:11 Arformoterol 15 Mcg/2 Ml Neb NEB 15 mcg BID-RT ZANE Administration Artificial Tears 2 drop 09/28/20 12:00 09/30/20 07:13 Artificial Tear Kadie 15 Ml Bot EA EYE Not Given Q6H ZANE Aspirin 81 mg 09/29/20 09:00 09/29/20 10:20 Aspirin 81 Mg Enteric Coated Tablet PO 81 mg DAILY ZANE Administration Atorvastatin Calcium 40 mg 09/20/20 21:00 09/29/20 20:34 Atorvastatin Calcium 40 Mg Tab PO 40 mg HS ZANE Administration Bisacodyl 10 mg 09/20/20 08:20 09/24/20 09:05 Bisacodyl 5 Mg Tab PO 10 mg DAILYPRN PRN Administration Constipation Cholecalciferol 5,000 units 09/17/20 09:00 09/29/20 10:19 Cholecalciferol 1,000 Units (25 Mcg) Tab PO 5,000 units DAILY ZANE Administration Digoxin 0.125 mg 09/22/20 09:00 09/29/20 10:19 Digoxin 0.125 Mg Tab PO 0.125 mg DAILY ZANE Administration Insulin Human Lispro 0 units 09/21/20 10:56 09/26/20 14:39 Humalog 300 Units/3 Ml Vial SC 2 unit .MILD SLIDING SCALE PRN Administration Mild Correctional Scale Magnesium Oxide 400 mg 09/24/20 09:00 09/29/20 10:19 Magnesium Oxide 400 Mg Tab PO 400 mg DAILY ZANE Administration Mineral Oil/White Petrolatum 1 gm 09/28/20 21:00 09/29/20 20:35 Artificial Tear Ointment 3.5 Gm Tube EA EYE Not Given HS ZANE Morphine Sulfate 2 mg 09/16/20 15:45 09/18/20 10:43 Morphine 2 Mg/Ml Vial SLOW IVP 2 mg Q1H PRN Administration Moderate Breakthrough Pain Nitroglycerin 0.4 mg 09/16/20 19:15 09/21/20 15:08 Nitroglycerin 0.4 Mg Tab (25 Tab Bottle) SL 0.4 mg Q5MIN PRN Administration Chest Pain Nitroglycerin 0.5 inch 09/21/20 21:00 09/29/20 20:33 Nitroglycerin 2% Ointment 1 Inch/1 Gm Packet TOP 0.5 inch HS ZANE Administration Nystatin 500,000 units 09/17/20 21:00 09/29/20 20:32 Nystatin 500,000 Units/5 Ml Udcup SSW 500,000 units QID ZANE Administration Pantoprazole Sodium 40 mg 09/20/20 09:00 09/29/20 10:21 Pantoprazole 40 Mg Tab PO 40 mg DAILY ZANE Administration Pregabalin 100 mg 09/16/20 21:00 09/29/20 20:33 Pregabalin 50 Mg Cap PO 100 mg HS ZANE Administration Pregabalin 25 mg 09/17/20 09:00 09/29/20 10:20 Pregabalin 25 Mg Cap PO 25 mg QAM ZANE Administration Senna/Docusate Sodium 2 tab 09/20/20 08:20 09/24/20 09:05 Senokot S 8.6-50 Mg Tab PO 2 tab BIDPRN PRN Administration Constipation Sodium Chloride 10 ml 09/16/20 15:45 09/22/20 05:12 Flush - Normal Saline 10 Ml Syringe IVF 10 ml PRN PRN Administration Saline Flush Tamsulosin HCl 0.4 mg 09/29/20 09:00 09/29/20 10:21 Tamsulosin Hcl 0.4 Mg Cap PO 0.4 mg DAILY ZANE Administration Tramadol HCl 50 mg 09/16/20 15:45 09/23/20 15:18 Tramadol Hcl 50 Mg Tab PO 50 mg Q6H PRN Administration PAIN (1-3) Zolpidem Tartrate 10 mg 09/20/20 08:18 09/29/20 20:34 Zolpidem Tartrate 5 Mg Tab PO 10 mg HSPRN PRN Administration Insomnia Hospitalist Exam Vitals: Vital Signs (12 hours) Temp Pulse Resp BP BP Pulse Ox 09/30/20 07:30 98.1 F 74 20 120/66 94 L 09/30/20 07:12 92 L 09/30/20 07:11 69 16 92 L 09/30/20 04:31 96.6 F L 70 14 114/56 L 92 L Weight Admit Weight 198 lb Weight 198 lb Hosp A/P (1) CHF (congestive heart failure) Code(s): I50.9 - HEART FAILURE, UNSPECIFIED Status: Chronic Qualifiers: Heart failure type: systolic Heart failure chronicity: unspecified Qualified Code(s): I50.20 - Unspecified systolic (congestive) heart failure (2) DM type 2 causing CKD stage 3 Code(s): E11.22 - TYPE 2 DIABETES MELLITUS W DIABETIC CHRONIC KIDNEY DISEASE; N18.30 - CHRONIC KIDNEY DISEASE, STAGE 3 UNSPECIFIED Status: Chronic Qualifiers: Diabetes mellitus fci insulin use: without fci use Chronic kidney disease stage 3 subtype: unspecified whether 3a or 3b Qualified Code(s): E11.22 - Type 2 diabetes mellitus with diabetic chronic kidney disease; N18.30 - Chronic kidney disease, stage 3 unspecified (3) HTN (hypertension) Code(s): I10 - ESSENTIAL (PRIMARY) HYPERTENSION Status: Chronic Qualifiers: Hypertension type: essential hypertension Qualified Code(s): I10 - Essential (primary) hypertension (4) CAD (coronary artery disease) Code(s): I25.10 - ATHSCL HEART DISEASE OF [place] CORONARY ARTERY W/O ANG PCTRS Status: Chronic Qualifiers: Coronary Disease-Associated Artery/Lesion type: [place] artery [place] vs. transplanted heart: [place] heart Associated angina: without angina Qualified Code(s): I25.10 - Atherosclerotic heart disease of [place] coronary artery without angina pectoris (5) Atrial fibrillation Code(s): I48.91 - UNSPECIFIED ATRIAL FIBRILLATION Status: Chronic Qualifiers: Atrial fibrillation type: paroxysmal Qualified Code(s): I48.0 - Paroxysmal atrial fibrillation (6) CVA (cerebral vascular accident) Code(s): I63.9 - CEREBRAL INFARCTION, UNSPECIFIED Status: Acute Qualifiers: CVA mechanism: embolism Precerebral and cerebral artery: middle cerebral artery Laterality of affected vessel: right Qualified Code(s): I63.411 - Cerebral infarction due to embolism of right middle cerebral artery - Plan proable embolic CVA akiko JOYNER stroke protocol
[2020-09-30] MEDS: Cholecalciferol 1,000 UNITS (25 MCG) TAB PO SCH (10:11)
[2020-09-30] MEDS: Magnesium Oxide 400 MG TAB PO SCH (10:13)
[2020-09-30] MEDS: Pregabalin 25 MG CAP PO SCH (10:13)
[2020-09-30] MEDS: Carvedilol 6.25 MG TAB PO SCH ×2 (10:14→16:39)
[2020-09-30] MEDS: Apixaban 5 MG TAB PO SCH (10:14)
[2020-09-30] MEDS: Aspirin 81 mg Enteric Coated Tablet PO SCH (10:14)
[2020-09-30] MEDS: Digoxin 0.125 MG TAB PO SCH (10:14)
[2020-09-30] MEDS: Tamsulosin HCl 0.4 MG CAP PO SCH (10:15)
[2020-09-30] MEDS: Nystatin 500,000 UNITS/5 ML UDCUP SSW SCH ×3 (10:15→16:42)
[2020-09-30] MEDS: Furosemide 20 MG TAB PO SCH ×2 (10:15→13:00)
--- NOTE | 2020-09-30 10:26 | PDOC.CPN ---
- Subjective Date: 09/30/20 Time: 10:24 Interval history: No overnight events. No new complaints. Scheduled to go to rehab today. - Review of Systems General: denies: fever/chills, weight/appetite/sleep changes, night sweats, fatigue Respiratory: denies: cough, congestion, shortness of breath, exercise intolerance Cardiovascular: denies: chest pain, palpitation, edema, paroxysmal nocturnal dyspnea, orthopnea Gastrointestinal: denies: nausea, vomiting, diarrhea, constipation, abd pain, GI bleeding Musculoskeletal: denies: pain, tenderness, stiffness, swelling, arthritis/arthralgias Neurological: denies: numbness, syncope, seizure, weakness - Objective Allergies/Adverse Reactions: Allergies Allergy/AdvReac Type Severity Reaction Status Date / Time citalopram Allergy Verified 10/30/19 23:53 ketorolac tromethamine Allergy Verified 10/30/19 23:53 [From Toradol] Penicillins Allergy Verified 10/30/19 23:53 adhesives Allergy Intermediate Uncoded 10/30/19 23:53 Visit Medications: Current Medications Acetaminophen (Acetaminophen 500 Mg Tab) 500 mg PO Q4H PRN PRN Reason: Headache/Fever or Pain Last Admin: 09/19/20 15:27 Dose: 500 mg Documented by: Al Hydroxide/Mg Hydroxide (Mag-Al 1200 Mg/1200 Mg/30 Ml Udcup) 30 ml PO Q4H PRN PRN Reason: Heartburn or Indigestion Albuterol Sulfate (Albuterol Sulfate 2.5 Mg/3 Ml Neb) 2.5 mg NEB Q6H PRN PRN Reason: COPD Albuterol/Ipratropium (Ipratropium/Albuterol Sulfate 3 Ml Neb) 3 ml NEB Q6H PRN PRN Reason: SOB &/or Wheezing Apixaban (Apixaban 5 Mg Tab) 5 mg PO BID ZANE Last Admin: 09/29/20 20:34 Dose: 5 mg Documented by: Arformoterol Tartrate (Arformoterol 15 Mcg/2 Ml Neb) 15 mcg NEB BID-RT ZANE Last Admin: 09/30/20 07:11 Dose: 15 mcg Documented by: Artificial Tears (Artificial Tear Kadie 15 Ml Bot) 2 drop EA EYE Q6H ZANE Last Admin: 09/30/20 07:13 Dose: Not Given Documented by: Aspirin (Aspirin 81 Mg Enteric Coated Tablet) 81 mg PO DAILY [facility] Last Admin: 09/29/20 10:20 Dose: 81 mg Documented by: Atorvastatin Calcium (Atorvastatin Calcium 40 Mg Tab) 40 mg PO HS [facility] Last Admin: 09/29/20 20:34 Dose: 40 mg Documented by: Benzonatate (Benzonatate 100 Mg Cap) 100 mg PO Q6H PRN PRN Reason: Cough Bisacodyl (Bisacodyl 5 Mg Tab) 10 mg PO DAILYPRN PRN PRN Reason: Constipation Last Admin: 09/24/20 09:05 Dose: 10 mg Documented by: Budesonide (Budesonide 0.5 Mg/2 Ml Neb) 0.5 mg NEB Q12H PRN PRN Reason: Wheezing Calcium Carbonate (Calcium Carbonate 500 Mg Chewtab) 1,000 mg PO Q4H PRN PRN Reason: Heartburn or Indigestion Carvedilol (Carvedilol 6.25 Mg Tab) 6.25 mg PO BID-[facility] Chlorhexidine Gluconate (Chlorhexidine Gluconate 15 Ml Udcup) 15 ml SSP ASDIR PRN PRN Reason: MOUTH ULCERS Cholecalciferol (Cholecalciferol 1,000 Units (25 Mcg) Tab) 5,000 units PO DAILY [facility] Last Admin: 09/29/20 10:19 Dose: 5,000 units Documented by: Dextrose/Water (Dextrose 50% Abboject 50 Ml Syringe) 25 gm SLOW IVP PRN PRN PRN Reason: Hypoglycemia Digoxin (Digoxin 0.125 Mg Tab) 0.125 mg PO DAILY [facility] Last Admin: 09/29/20 10:19 Dose: 0.125 mg Documented by: Furosemide (Furosemide 20 Mg Tab) 20 mg PO 0900,1400 [facility] Glucagon (Glucagon 1 Mg/Ml Vial) 1 mg IM PRN PRN PRN Reason: Hypoglycemia Guaifenesin (Guaifenesin Sf Soln 200 Mg/10 Ml Udcup) 200 mg PO Q4H PRN PRN Reason: Cough Hydralazine HCl (Hydralazine 20 Mg/Ml Vial) 10 mg SLOW IVP Q4H PRN PRN Reason: SBP > 180 and HR < 70 Dextrose/Water (D5w) 1,000 mls @ 0 mls/hr IV .Q0M PRN PRN Reason: Hypoglycemia Insulin Human Lispro (Humalog 300 Units/3 Ml Vial) 0 units SC .BEDTIME SLIDING SC PRN PRN Reason: Bedtime Correctional Scale Insulin Human Lispro (Humalog 300 Units/3 Ml Vial) 0 units SC .MILD SLIDING SCALE PRN PRN Reason: Mild Correctional Scale Last Admin: 09/26/20 14:39 Dose: 2 unit Documented by: Loperamide HCl (Loperamide Hcl 2 Mg Cap) 2 mg PO PRN PRN PRN Reason: Diarrhea/Loose Stools Loratadine (Loratadine 10 Mg Tab) 10 mg PO DAILYPRN PRN PRN Reason: Sinus Symptoms Magnesium Hydroxide (Milk Of Magnesia 30 Ml Udcup) 30 ml PO Q12H PRN PRN Reason: Constipation Magnesium Oxide (Magnesium Oxide 400 Mg Tab) 400 mg PO DAILY [facility] Last Admin: 09/29/20 10:19 Dose: 400 mg Documented by: Magnesium Oxide (Magnesium Oxide 400 Mg Tab) 400 mg PO NOW [facility] Stop: 09/30/20 12:00 Mineral Oil/White Petrolatum (Artificial Tear Ointment 3.5 Gm Tube) 1 gm EA EYE [facility] Last Admin: 09/29/20 20:35 Dose: Not Given Documented by: Miscellaneous Medication (Electrolyte Replacement Protocol 1 Each) 1 each FS ASDIR [facility] Morphine Sulfate (Morphine 2 Mg/Ml Vial) 2 mg SLOW IVP Q1H PRN PRN Reason: Moderate Breakthrough Pain Last Admin: 09/18/20 10:43 Dose: 2 mg Documented by: Nitroglycerin (Nitroglycerin 0.4 Mg Tab (25 Tab Bottle)) 0.4 mg SL Q5MIN PRN PRN Reason: Chest Pain Last Admin: 09/21/20 15:08 Dose: 0.4 mg Documented by: Nitroglycerin (Nitroglycerin 2% Ointment 1 Inch/1 Gm Packet) 0.5 inch TOP [facility] Last Admin: 09/29/20 20:33 Dose: 0.5 inch Documented by: Nystatin (Nystatin 500,000 Units/5 Ml Udcup) 500,000 units SSW QID [facility] Last Admin: 09/29/20 20:32 Dose: 500,000 units Documented by: Ondansetron HCl (Ondansetron Pf 4 Mg/2 Ml Vial) 4 mg IM Q6H PRN PRN Reason: Nausea/Vomiting Ondansetron HCl (Ondansetron Odt 4 Mg Tab) 4 mg PO Q6H PRN PRN Reason: Nausea/Vomiting Pantoprazole Sodium (Pantoprazole 40 Mg Tab) 40 mg PO DAILY [facility] Last Admin: 09/29/20 10:21 Dose: 40 mg Documented by: Pregabalin (Pregabalin 50 Mg Cap) 100 mg PO HS [facility] Last Admin: 09/29/20 20:33 Dose: 100 mg Documented by: Pregabalin (Pregabalin 25 Mg Cap) 25 mg PO QAM [facility] Last Admin: 09/29/20 10:20 Dose: 25 mg Documented by: Ramipril (Ramipril 2.5 Mg Cap) 2.5 mg PO [facility] Senna/Docusate Sodium (Senokot S 8.6-50 Mg Tab) 2 tab PO BIDPRN PRN PRN Reason: Constipation Last Admin: 09/24/20 09:05 Dose: 2 tab Documented by: Sodium Chloride (Flush - Normal Saline 10 Ml Syringe) 10 ml IVF PRN PRN PRN Reason: Saline Flush Last Admin: 09/22/20 05:12 Dose: 10 ml Documented by: Sodium Chloride (Flush - Normal Saline 10 Ml Syringe) 10 ml IVF PRN PRN PRN Reason: Saline Flush Sodium Chloride (Sodium Chloride 0.65% Nasal 44 Ml Bot) 0 ml EA NARE QIDPRN PRN PRN Reason: Nasal Congestion Tamsulosin HCl (Tamsulosin Hcl 0.4 Mg Cap) 0.4 mg PO DAILY [facility] Last Admin: 09/29/20 10:21 Dose: 0.4 mg Documented by: Throat Lozenges (Cepastat Lozenges 1 Taiwo) 1 taiwo PO Q2H PRN PRN Reason: Sore Throat Tizanidine HCl (Tizanidine Hcl 4 Mg Tab) 4 mg PO Q6H PRN PRN Reason: MUSCLE SPASM Tramadol HCl (Tramadol Hcl 50 Mg Tab) 50 mg PO Q6H PRN PRN Reason: PAIN (1-3) Last Admin: 09/23/20 15:18 Dose: 50 mg Documented by: Zolpidem Tartrate (Zolpidem Tartrate 5 Mg Tab) 10 mg PO HSPRN PRN PRN Reason: Insomnia Last Admin: 09/29/20 20:34 Dose: 10 mg Documented by: Vital Signs & Weight: Vital Signs Temp Pulse Resp BP BP BP Pulse Ox 09/30/20 07:30 98.1 F 74 20 120/66 120/66 94 L 09/30/20 07:12 92 L 09/30/20 07:11 69 16 92 L 09/30/20 04:31 96.6 F L 70 14 114/56 L 92 L Admit Weight 198 lb Weight 198 lb - Quality Measures Condition: Atrial Fibrillation/Flutter (hx or current) CV meds: Beta Myranda: Yes, PAU/ARB: Yes, Statin: Yes, ASA: Yes, Anticoagulant: Yes (lovenox 90 BID) - Medication Contraindications No Antithrombotic reason: Treatment not indicated - Labs Result Diagrams: 09/30/20 04:58 09/30/20 04:58 Troponin/CKMB Troponin I 0.080 ng/mL (< 0.028) H 09/20/20 19:19 - Assessment/Plan Assessment/Plan: 1. s/p recent lumbar surgery 2. Persistent AFib 3. s/p recent CVA 4. Acute on chronic systolic CHF (EF 15-20%) Patient with slow ventricular response yesterday. No normalized off cardizem. BP improved on lower dose lasix. Will add low dose ACT. Patient previously on Altace BID. Will resume 2.5mg QHS. LifeVest in place. Plan for rehab today. F/U with [facility] 2 weeks post rehab discharge.
[2020-09-30 12:13] VITALS: TEMP 97.6
[2020-09-30] MEDS ORDERED: ALPRAZolam 0.5 MG TAB PO PRN (13:11)
[2020-09-30 16:43] VITALS: BP 114/56
--- NOTE | 2020-09-30 16:52 | DIS ---
DATE OF ADMISSION: 09/17/2020 DATE OF DISCHARGE: 09/30/2020 PRIMARY CARE PROVIDER: Martita Burrows MD. Discharged to [facility]. PROCEDURE DONE: On 09/16/2020, L4-5 laminectomy. CONSULTATIONS: 1. [facility] Hospitalist Service, Dr. Posadas on 09/18/2020. 2. Dr. Pugh on 09/19/2020, Neurology. 3. On 09/20/2020, Dr. Jesus Leiva, Cardiology. HOSPITAL COURSE: The patient was admitted for an elective L4-5 lumbar laminectomy. The patient was doing well postoperatively except for difficulty urination. He had a history of heart failure, chronic obstructive pulmonary disease, hypertension, on anticoagulation. Initial laboratory demonstrated white count 10.4, hemoglobin 13.3, and a platelet count of 133,000. INR was 1.3 x2. Sodium was 120, potassium 4.7, BUN 24, creatinine 2.00, blood sugar 113, bilirubin 1.5. Enzymes normal. The patient's anticoagulation had been held preoperatively on 09/19. The patient had been discharged but had been held the previous night due to change in neuro status. At that point, the patient had findings consistent with a dense left hemiplegia. CT scan was done, which was unrevealing. Therefore, an MRI was done, which revealed acute nonhemorrhagic right middle cerebral artery infarction. The patient was placed on the stroke service. Neurology consult obtained. Anticoagulation with Lovenox started, therapeutic levels. On 09/20/2020, an EEG was done, which was generalized regular theta activities, moderate generalized nonspecific cerebral dysfunction. On 09/20/2020, Dr. Leiva saw him, had a history of atrial fibrillation, on Eliquis. He recommended continuing rate control. Echo was ordered. Echocardiogram was read as suspicious for possible small thrombus attached to the posterior mitral valve chordae. Dr. Levine agreed with the Lovenox therapy despite the risk of bleeding. Discharge was written on 09/27/2020 by Afua Shi PA-C. The patient was still in the hospital 09/28/2020. The patient's echocardiogram revealed an EF of 15% to 20%. LifeVest was ordered. The patient was eventually transitioned from Lovenox to Eliquis. The patient was also placed on Coreg, Lasix, and ramipril for his systolic heart failure and cardiomyopathy. On 09/28/2020, he had recovered significant function in his left side, in fact when I examined him today he had good strength bilaterally. No cranial nerve deficit. He is being discharged to the [facility] for continuing care. Post rehab, he will be followed up by Dr. Burrows. 35 minutes spent preparing this discharge. DISCHARGE DIAGNOSES: 1. Postop lumbar laminotomy. 2. Acute cerebrovascular accident in the right middle cerebral artery distribution. 3. Coronary artery disease. 4. Type 2 diabetes mellitus. 5. Hypertension. 6. Cardiomyopathy with congestive heart failure. 7. Atrial fibrillation. DISCHARGE MEDICATIONS: 1. Flomax 0.4 mg a day. 2. Ultram 50 mg q.6 hours p.r.n. 3. Lasix 40 mg p.r.n. 4. Alprazolam 0.5 mg p.o. t.i.d. p.r.n. 5. Eliquis 5 mg b.i.d. 6. Aspirin 81 mg a day. 7. Tizanidine 4 mg q.6 hours. 8. Zolpidem 10 mg h.s. 9. Altace 2.5 mg p.o. b.i.d. 10. Potassium chloride 20 mEq p.r.n. 11. 0.2 mg topical h.s. 12. Nexium 40 mg. 13. Coreg 6.25 mg p.o. b.i.d. 14. Pravastatin 20 mg h.s. And some supplements. ALLERGIES: CITALOPRAM, TORADOL, PENICILLIN. CODE STATUS: Full. DISCHARGE INSTRUCTIONS: Diet, soft diet per Speech. He will be going for PT and OT, and speech therapy. Job ID: [id number] [facility]
== END 2020-09-30 17:31 | DRG 515 ==
LOC: SDC 06:41 → SJJU 12:30 → OBSVTOIN 09-17 17:20 → 2SE 09-19 09:49
PROVIDERS: ADMIT Neurological Surgery; ATTEND Internal Medicine
PROC: 01NB0ZZ Release Lumbar Nerve, Open Approach (ICD-10-PCS; principal; 2020-09-16)
PROC: 0T9B70Z Drainage of Bladder with Drainage Device, Via Natural or Artificial Opening (ICD-10-PCS; 2020-09-17)
DX: M48.062 Spinal stenosis, lumbar region with neurogenic claudication (principal); I63.411 Cerebral infarction due to embolism of right middle cerebral artery; I50.23 Acute on chronic systolic (congestive) heart failure; I13.0 Hypertensive heart and chronic kidney disease with heart failure and stage 1 through stage 4 chronic kidney disease, or unspecified chronic kidney disease; G81.94 Hemiplegia, unspecified affecting left nondominant side; E87.1 Hypo-osmolality and hyponatremia; I47.1 Supraventricular tachycardia; I42.9 Cardiomyopathy, unspecified; I48.19 Other persistent atrial fibrillation; J44.9 Chronic obstructive pulmonary disease, unspecified; I25.10 Atherosclerotic heart disease of native coronary artery without angina pectoris; G47.33 Obstructive sleep apnea (adult) (pediatric); N18.30 Chronic kidney disease, stage 3 unspecified; E11.22 Type 2 diabetes mellitus with diabetic chronic kidney disease; I48.0 Paroxysmal atrial fibrillation; R33.9 Retention of urine, unspecified; R29.810 Facial weakness; E83.39 Other disorders of phosphorus metabolism; R00.1 Bradycardia, unspecified; E83.42 Hypomagnesemia; Z95.1 Presence of aortocoronary bypass graft; Z95.2 Presence of prosthetic heart valve; Z79.82 Long term (current) use of aspirin; Z79.01 Long term (current) use of anticoagulants; Z88.0 Allergy status to penicillin; Z88.8 Allergy status to other drugs, medicaments and biological substances; Z99.81 Dependence on supplemental oxygen
CPT/HCPCS: 36415; 36416; 70450; 70551; 71045; 76000; 80048; 80053; 80061; 81003; 81015; 82310; 82570; 83690; 83735; 83880; 83930; 83935; 84100; 84300; 84443; 84484; 85025; 85610; 85730; 87086; 93005; 93010; 93306; 95712; 95816; 95819; 95957; 96365; 96376; G0378; J1100; J1650; J1815; J1940; J1956; J2270; J2405; J2704; J3010; J3370; J3475; J3490; J7050